=== PATIENT | female | born 1985 | race Caucasian/White ===

== ENCOUNTER → 2017-08-04 15:30 | Outpatient (CLI) | payer BC, SELFPAY ==
[2017-08-06 14:10] LABS: Chlamydia Trachomatis by PCR Negative (Negative); Neisserai gonorrhoeae by PCR Negative (Negative); Probe Check PASS; Sample Adequacy Control PASS; Specimen Processing Control PASS
== END ==
PROVIDERS: Visit Provider Obstetrics & Gynecology
DX: Z11.3 Encounter for screening for infections with a predominantly sexual mode of transmission (principal); Z32.01 Encounter for pregnancy test, result positive; Z12.4 Encounter for screening for malignant neoplasm of cervix
CPT/HCPCS: 87491; 87591

== ENCOUNTER → 2017-08-28 15:07 | Outpatient (CLI) | payer BC, SELFPAY ==
[2017-08-28 15:56] LABS: Color, Urine Yellow (Yellow); Glucose, Dipstick Normal (Normal); Ketone-Dipstick Negative (Negative); Leukocyte Esterase-Dipstick Negative /ul (Negative); Nitrite-Dipstick Negative (Negative); Occult Blood-Urine Negative /ul (Negative); Protein-Dipstick Negative (Negative); Specific Gravity, Urine 1.015 (1.002-1.030); Urine Bilirubin Dipstick Negative (Negative); Urine Clarity Clear (Clear); Urine Urobilinogen Normal (Normal)
[2017-08-28 16:01] LABS: COTININE Drug Screen Negative (<200 ng/mL)
[2017-08-28 16:05] LABS: Amphetamine Urine VISTA NEGATIVE (<1000 ng/mL); Barbiturate Urine VISTA NEGATIVE (< 200 ng/mL); Benzodiazepine Urine VISTA NEGATIVE (< 200 ng/mL); Cocaine Urine VISTA NEGATIVE (< 300 ng/mL); Ecstacy Urine VISTA NEGATIVE (< 500 ng/mL); Methadone Urine VISTA NEGATIVE (< 300 ng/mL); PCP Urine VISTA NEGATIVE (< 25 ng/mL); THC Urine VISTA NEGATIVE (< 50 ng/mL); Vista UDS pH Range 6
[2017-08-28 16:23] LABS: Absolute Lymphocyte Count 1.78 X10^3/ul (0.83-4.51); Absolute Neutrophil Count 7.8 X10^3/uL (2.0-7.7); Basophil# 0.02 X10^3/uL; Basophil% 0.2 % (0-1); Eosinophil# 0.08 X10^3/uL; Eosinophils% 0.8 % (0-5); Hematocrit 39.6 % (37-47); Hemoglobin 13.5 g/dl (12.0-15.0); Lymphocyte # 1.78 X10^3/ul (4.0); Lymphocyte % 17.2 % (19-41); Mean Corp Hgb Conc 34.1 g/gl (32-36); Mean Corpuscular Hgb 31.4 pg (27.0-32.0); Mean Corpuscular Volume 92.1 fL (81-99); Mean Platelet Vol. 11.5 fl (6.2-12.0); Monocyte# 0.63 X10^3/uL; Monocyte% 6.1 % (0-10); Neutrophil # 7.78 X10^3/uL (2.7-7.7); Neutrophil % 74.9 % (47-70); Platelet Count 217 K/mm3 (150-450); RBC Distribution Width CV 12.5 % (11.6-14.6); RBC Distribution Width SD 41.7 fl (35.1-43.9); White Blood Count 10.4 K/mm3 (4.4-11.0)
[2017-08-28 16:27] LABS: POSITIVE COUNT NO; POSITIVE DIFFERENTIAL NO; POSITIVE MORPHOLOGY NO
[2017-08-28 16:47] LABS: Thyroid Stim Hormone (TSH) 1.03 uIU/mL (0.358-3.74)
[2017-08-28 17:31] LABS: HIV - WCH Non-Reactive (Nonreactive); Rubella IgG 41.5 IU/mL
[2017-08-30 11:44] LABS: HEPATITIS B SURFACE AG Negative (Negative); Hep C Antibodies <0.1 s/co ratio (0.0-0.9)
[2017-09-01 02:54] LABS: Prenatal RPR NONREACTIVE (NONREACTIVE)
== END ==
PROVIDERS: Visit Provider Obstetrics & Gynecology
DX: Z34.81 Encounter for supervision of other normal pregnancy, first trimester (principal)
CPT/HCPCS: 36415; 80307; 81002; 84443; 85025; 86703; 86762; 86803; 87340

== ENCOUNTER → 2017-12-18 17:04 | Outpatient (CLI) | payer BC, SELFPAY | PROVIDERS: Visit Provider Obstetrics & Gynecology | DX: N30.00 Acute cystitis without hematuria (principal) | CPT/HCPCS: 87077; 87086; 87088; 87186 ==

== ENCOUNTER → 2017-12-23 10:39 | Outpatient (CLI) | payer BC, SELFPAY ==
[2017-12-23 11:24] LABS: Hematocrit 35.3 % (37-47); Hemoglobin 11.7 g/dl (12.0-15.0); Mean Corp Hgb Conc 33.1 g/gl (32-36); Mean Corpuscular Hgb 31.1 pg (27.0-32.0); Mean Corpuscular Volume 93.9 fL (81-99); Mean Platelet Vol. 11.5 fl (6.2-12.0); Platelet Count 184 K/mm3 (150-450); RBC Distribution Width CV 12.3 % (11.6-14.6); Red Blood Count 3.76 M/mm3 (4.2-5.4); White Blood Count 9.4 K/mm3 (4.4-11.0)
[2017-12-23 11:25] LABS: Scan Indicated on CBC? Y/N NO
[2017-12-23 11:49] LABS: ALB/GLOB Ratio 0.6 RATIO (0.9-2.4); AST(SGOT) 33 U/L (15-37); Alanine Aminotransfer ALT/SGPT 44 U/L (13-56); Albumin, Serum 2.3 g/dL (3.2-5.0); Alkaline Phosphatase 75 U/L (45-117); Anion Gap 8 (5-15); BUN 5 mg/dL (7-18); BUN/Creat Ratio 10.2 RATIO (10-20); Chloride 108 mmol/L (98-107); Creatinine, Serum 0.49 mg/dL (0.55-1.02); EST Glomerular Filtration Rate 156 mL/min (>60); Est Glom Filt Rate - Afr Amer 189 mL/min (>60); Globulin 3.7 g/dL (2.2-4.2); Glucose 178 mg/dL (74-106); Glucose Challenge Gest 1H 50g 178 mg/dL (70-140); Potassium 3.6 mmol/L (3.5-5.1); Sodium Level 140 mmol/L (136-145); Uric Acid 2.6 mg/dL (2.6-6.0)
== END ==
PROVIDERS: Visit Provider Obstetrics & Gynecology
DX: Z34.83 Encounter for supervision of other normal pregnancy, third trimester (principal)
CPT/HCPCS: 80053; 82950; 84550; 85027

== ENCOUNTER → 2018-01-01 07:04 | Outpatient (CLI) | payer BC, SELFPAY ==
[2018-01-01 09:29] LABS: Glucose GTT-Gestation. Fasting 73 mg/dL (<105)
[2018-01-01 09:30] LABS: Glucose GTT-Gestational 1 Hr 163 mg/dL (<190)
[2018-01-01 10:28] LABS: Glucose GTT-Gestational 2 Hr 133 mg/dL (<165)
[2018-01-01 11:23] LABS: Glucose GTT-Gestational 3 Hr 166 L (<145)
[2018-01-01 17:22] LABS: Bacteria 0 SEEN /hpf (None Seen); Mucous, Urine 0 SEEN /hpf (<or=2+)
[2018-01-01 19:27] LABS: Color, Urine Straw (Yellow); Glucose, Dipstick Normal (Normal); Ketone-Dipstick Negative (Negative); Leukocyte Esterase-Dipstick 500 /ul (Negative); Nitrite-Dipstick Negative (Negative); Occult Blood-Urine 25 /ul (Negative); Protein-Dipstick 30 mg/dl (Negative); Urine Bilirubin Dipstick Negative (Negative); Urine Clarity Cloudy (Clear); Urine Urobilinogen Normal (Normal)
[2018-01-01 19:41] LABS: Red Blood Cells-Urine 0-5 SEEN /hpf (0-5); Squamous Epithelial Cells - UA 0-5 SEEN /hpf (5-10); White Blood Cells >100 SEEN /hpf (0-5)
[2018-01-01 19:42] LABS: Amorphous Sediment 2+
== END ==
PROVIDERS: Visit Provider Obstetrics & Gynecology
DX: O24.912 Unspecified diabetes mellitus in pregnancy, second trimester (principal); Z3A.00 Weeks of gestation of pregnancy not specified; N39.0 Urinary tract infection, site not specified
CPT/HCPCS: 36415; 81001; 82951; 82952; 87077; 87086; 87088; 87186

== ENCOUNTER → 2018-02-01 17:22 | Outpatient (CLI) | payer BC, SELFPAY | PROVIDERS: Visit Provider Obstetrics & Gynecology | DX: O23.43 Unspecified infection of urinary tract in pregnancy, third trimester (principal); Z3A.00 Weeks of gestation of pregnancy not specified | CPT/HCPCS: 87077; 87086; 87088; 87186 ==

== ENCOUNTER → 2018-02-15 16:28 | Outpatient (CLI) | payer BC, SELFPAY ==
[2018-02-15 18:12] LABS: Group B Strep DNA By PCR Negative (Negative); Internal Control PASS; Probe Check PASS; Specimen Processing Control PASS
== END ==
PROVIDERS: Visit Provider Obstetrics & Gynecology
DX: Z36.85 Encounter for antenatal screening for Streptococcus B (principal)
CPT/HCPCS: 87081; 87653

== ENCOUNTER 2018-02-21 08:39 | Inpatient (IN) | payer BC, SELFPAY ==
[2018-02-21 08:39] VITALS: BP 167/87; PULSE 101; RESP 19; TEMP 36.4; O2SAT 100; BMI 30.5
[2018-02-21 08:53] LABS: Absolute Lymphocyte Count 1.53 X10^3/ul (0.83-4.51); Absolute Neutrophil Count 6.7 X10^3/uL (2.0-7.7); Basophil# 0.02 X10^3/uL; Basophil% 0.2 % (0-1); Eosinophil# 0.04 X10^3/uL; Eosinophils% 0.4 % (0-5); Hematocrit 39.3 % (37-47); Hemoglobin 12.4 g/dl (12.0-15.0); Lymphocyte # 1.53 X10^3/ul (4.0); Lymphocyte % 16.9 % (19-41); Mean Corp Hgb Conc 31.6 g/gl (32-36); Mean Corpuscular Hgb 29.2 pg (27.0-32.0); Mean Corpuscular Volume 92.7 fL (81-99); Monocyte% 6.6 % (0-10); Neutrophil # 6.74 X10^3/uL (2.7-7.7); Neutrophil % 74.4 % (47-70); Platelet Count 153 K/mm3 (150-450); Red Blood Count 4.24 M/mm3 (4.2-5.4); White Blood Count 9.1 K/mm3 (4.4-11.0)
[2018-02-21 08:54] LABS: Differential Indicated SCAN CRITERIA MET; POSITIVE COUNT NO; POSITIVE DIFFERENTIAL NO; POSITIVE MORPHOLOGY YES
--- NOTE | 2018-02-21 08:57 | ED.VISSUMM ---
- ER Visit Summary Date of Service: 02/21/18 Chief Complaint: Patient arrives with right-sided headache and tingling left side of her body. History of Present Illness: The patient is a 32 F who is 38 weeks gestation presents with headache and left-sided tingling numbness. She denies motor weakness. She denies double vision, blurred vision loss of vision. I trouble speech or swallowing. She denies neck pain or back pain. Denies chest pain. Denies shortness of breath. Denies nausea, vomiting or diarrhea. She denies any urologic symptoms. She has no stomach past medical history. She states her equity holder is Dr. Catrina Arnold. Please read written note for complete detail Physical Examination: Blood pressure is 166/113. Patient appears slightly anxious. Head is atraumatic normocephalic. Pupils are equal round reactive. Extraocular muscles are intact. TMs are pearly white with landmarks noted. Nares patent with no drainage. Posterior pharynx without erythema or exudate. Uvula is midline. There is no dysphonia or dysphasia. Trachea is midline. There is no stridor with auscultation of the neck. Heart is regular without murmur, gallop or rub. S1 and S2 are normal. Lungs are clear to auscultation with good movement of air bilaterally. Gravid uterus 1-2 fingerbreadths below the xiphoid process. heart tones noted. She is alert oriented ?3. Cerebellar functions normal. Motor spiral 5. She reports abnormal sensation/decreased sensation left side (face, left upper and lower extremity), DTR 4+ upper and lower extremity with 4 beats of clonus at the ankle. There is no Babinski sign noted. Test Results: CT of the head without contrast per my read is negative for any acute pathology. I received a call from Dr. Bartlett at 0905. He reports no abnormally noted. CBC is unremarkable. CMP, coags and uric acid level are pending. Emergency Department Course and Treatment: Concern patient has eclampsia. With unilateral headache and contralateral paresthesia need to evaluate for intracranial hemorrhage. CT of the head was obtained. Mag sulfate bolus and drip was ordered. Appropriate blood work was ordered i.e. CBC, CMP, uric acid, UA and coags. Her equity holder was paged. Treatment Plan: Evaluate for intracranial bleed if none noted to L&D Disposition: Case discussed with Dr. Candace Jones sales support consultant for Dr. anil Arnold. She agrees patient needs to go L&D. She agrees with treatment plan. Impression: Preeclampsia This note was generated with [employer] dictation software. It may contain incorrect words, spelling, and punctuation that were not noted in review of the chart prior to signing ED Disposition - Plan for ED Patient: Chief Complaint: Numb/Ting Referrals: Care Physician,No Primary [Primary Care Provider] -
[2018-02-21 09:00] VITALS: BP 128/80; PULSE 96; RESP 18; TEMP 36.8; O2SAT 98
--- NOTE | 2018-02-21 09:00 | ED.RN ---
ob nurse at bedside. holding magnesium to given on ob
[2018-02-21 09:09] LABS: International Normalized Ratio 0.9; Partial Thromboplast Time 26.8 Seconds (24.1-36.2); Prothrombin Time (Protime)PT. 12.4 SECONDS (11.7-14.9)
[2018-02-21 09:11] LABS: Differential Comment SCANNED; Platelet Estimate ADEQUATE (ADEQ); Reactive Lymphocyte RARE
[2018-02-21 09:12] LABS: ALB/GLOB Ratio 0.6 RATIO (0.9-2.4); AST(SGOT) 19 U/L (15-37); Alanine Aminotransfer ALT/SGPT 19 U/L (13-56); Albumin, Serum 2.7 g/dL (3.2-5.0); Alkaline Phosphatase 138 U/L (45-117); Anion Gap 11 (5-15); BUN 5 mg/dL (7-18); BUN/Creat Ratio 10.5 RATIO (10-20); Calcium,Total 9.2 mg/dL (8.5-10.1); Chloride 107 mmol/L (98-107); Creatinine, Serum 0.48 mg/dL (0.55-1.02); EST Glomerular Filtration Rate 162 mL/min (>60); Est Glom Filt Rate - Afr Amer 196 mL/min (>60); Estimated Creatinine Clearance 154.21 ml/min; Globulin 4.2 g/dL (2.2-4.2); Glucose 75 mg/dL (74-106); Potassium 3.8 mmol/L (3.5-5.1); Protein, Total 6.9 g/dL (6.4-8.2); Sodium Level 142 mmol/L (136-145); Uric Acid 3.6 mg/dL (2.6-6.0)
[2018-02-21 09:18] LABS: Mucous, Urine 0 SEEN /hpf (<or=2+); Red Blood Cells-Urine 0 SEEN /hpf (0-5); White Blood Cells 0 SEEN /hpf (0-5)
[2018-02-21 09:21] LABS: Color, Urine Yellow (Yellow); Glucose, Dipstick Normal (Normal); Ketone-Dipstick 5 mg/dl (Negative); Leukocyte Esterase-Dipstick Negative /ul (Negative); Nitrite-Dipstick Negative (Negative); Occult Blood-Urine Negative /ul (Negative); Protein-Dipstick Negative (Negative); Specific Gravity, Urine 1.005 (1.002-1.030); Urine Bilirubin Dipstick Negative (Negative); Urine Clarity Clear (Clear); Urine Urobilinogen Normal (Normal)
[2018-02-21 09:28] LABS: Squamous Epithelial Cells - UA 5-10 SEEN /hpf (5-10)
[2018-02-21 09:29] LABS: Bacteria 1+ /hpf (None Seen)
[2018-02-21 09:42] VITALS: BMI 31.1
[2018-02-21 09:42] LABS: Creatinine, Urine (random) < 13.00 mg/dL (NO RANGE EST.); Protein, Urine (Random) < 6.0 mg/dL (<11.9)
[2018-02-21] MEDS: Lactated Ringers 1,000 ML 50 ML IV ×3 (09:45→20:36)
[2018-02-21] MEDS: Magnesium Sulfate 20 GM/500 ML BAG IV (09:55)
[2018-02-21] MEDS: 0.9% Saline Lock 10 ML Syringe IV (10:21)
[2018-02-21] MEDS: Oxytocin 30 units/NS 500 ml 30 UNITS/500 ML IV.SOLN IV (10:55)
[2018-02-21] MEDS: fentaNYL-bupivacaine (epidural) 100 ML BAG EPIDURAL (14:35)
[2018-02-21] MEDS: Mag Hydrox/Al Hydrox/Simeth 30 ML UDC PO ×2 (15:21→20:20)
--- NOTE | 2018-02-21 15:57 | PCM.CONS.C ---
Problem List (1) Chest pain Status: Acute (2) Sinus tachycardia Status: Acute (3) Hypotension Status: Acute Reason for Consult Date of Consultation: 02/21/18 Reason for Consultation: Hypotension, tachycardia, chest pain History of Present Illness: The patient is a 32 year old F, currently in labor, with her fourth child, and while undergoing epidural implantation developed tachycardia, hypotension, lightheadedness, dizziness, and chest pain. Her blood pressure dropped to a systolic of 70, and her magnesium infusion was discontinued. In addition her Pitocin was discontinued as well. I was called urgently by anesthesia, and came to the patient's bedside. Upon arrival the patient was awake, alert, answers questions appropriately. She had already received 1 L of lactated Ringer's solution, and was undergoing a second liter infusion. He rolled the patient onto her left side, and her blood pressure improved to a systolic of 120. Initial EKG while this was going on showed sinus tachycardia, normal intervals, normal axis, no acute changes. An urgent bedside echo was obtained which showed hyperdynamic LV function with an EF around 75%, normal RV size and function, no evidence of systolic anterior motion of the mitral leaflet or significant mitral regurgitation. We were unable to quantitate RVSP due to lack of tricuspid regurgitation. The patient's symptoms have now completely resolved and she is feeling much better. Her blood pressure stabilized, she has had no decelerations, and her heart rate has improved although still tachycardic. She has no chest pain. On further history the patient has had 3 previous childbirths all with epidurals and none with any complications. She has no known cardiac history is a nondiabetic. [] Past Medical History Allergies/Adverse Reactions: Allergies Penicillins [PCN] Allergy (Verified 02/21/18 09:43) Unknown Home Medications: Ambulatory Orders Medication Instructions Recorded Cephalexin [Keflex] 500 mg PO DAILY 02/21/18 Vits [Prenatabs FA] 1 tablet PO DAILY 02/21/18 Smoking Status: Former smoker Review of Systems - Review of Systems General: Denies: Fever, Night Sweats, Fatigue Cardiovascular: Reports: Chest Discomfort, Chest Discomfort at Rest. Denies: Shortness of Breath, Orthopnea, PND, Peripheral Edema, Palpitations, Lightheadedness, Dizziness, Near Syncope, Syncope Respiratory: Denies: Cough, Sputum Production, Hemoptysis Gastrointestinal: Denies: Hematemesis, Hematochezia, Melena Genitourinary: Denies: Dysuria, Hematuria Skin: Denies: Rash Subjectve: Patient laying on her left side, no acute distress other than labor in progress. She denies any pain. Objective: Vital Signs Temp Pulse Resp BP Pulse Ox 98.3 F 96 18 128/80 H 98 02/21/18 09:00 02/21/18 09:00 02/21/18 09:00 02/21/18 09:00 02/21/18 09:00 Weight: 187 lb Body Mass Index (BMI) 31.1 General: Awake, Alert, Oriented x 3 HEENT: PERRL, EOMI, Sclera Non Icteric Neck: Supple, Good ROM, No Lymph Node Enlargement Lungs: Clear to auscultation Cardiovascular: Regular Rhythm, Normal S1, Normal S2, No Murmurs, No Rubs, No Gallops Vascular: No Carotid Bruits, Normal Femoral Pulses, Normal Radial Pulses, Normal Dorsalis Pedal Pulse, Normal Posterior Tibial Pulses Abdomen: Bowel Sounds Present, Soft, Non Tender, No HSM, No Organomegaly Extremities: No Cyanosis, No Clubbing, No edema Neurological: No Focal Motor or Sensory Deficit Rhythm: EKG: Sinus tachycardia, no acute changes. ECHO: Preliminary results show hyperdynamic LV function with an EF of 75%, unable to quantitate RVSP, normal RV size and function. No significant regurgitation or stenosis. Stress Test: Cardiac Cath: PCI: CT Surgery: Holter monitor: EPS: PPM: CXR: Chest CT Scan: Assessment/Plan 1. Hypotension: The patient's hypotension may be multifactorial including underperfusion and hyperdynamic LV function, induction of labor with Pitocin, magnesium infusion, and side effects of bupivacaine epidural infusion. Her magnesium infusion was discontinued, as well as her Pitocin until her condition stabilized. The patient is received 2 L of lactated Ringer's, and would recommend continuing aggressive IV fluid resuscitation given her hyperdynamic LV function. Do not believe the patient has any myocardial ischemia or acute injury pattern at this time. I recommend the patient proceed with resumption of Pitocin infusion in order to facilitate labor. My suspicion is that once the baby has been born that her symptoms will improve and her heart rate and blood pressure will normalize. Would recommend continuing telemetry monitoring in the room while the patient is undergoing labor in order to detect any possible supraventricular or ventricular arrhythmias during labor and delivery. Would not recommend beta-reynaldo therapy at this time as her sinus tachycardia seems to be a result of her ongoing labor. If the patient developed supraventricular tachycardia or ventricular arrhythmias would have a low threshold for IV Lopressor 5 mg every 4-6 hours as needed. Would not recommend troponin rule out at this time unless and until the patient has any chest pain symptoms. As always we need to have a high index of suspicion for possible spontaneous coronary dissection during a peripartum timeframe of up to 6-8 weeks after . 2. Events and results relayed to primary jack spooler tender Dr. Edwards. Consultation took place between 315 and 4:05 PM. Thank you very much for the opportunity to participate in the cardiac care of your patient.
[2018-02-21] MEDS: Oxytocin 30 units/NS 500 ml 30 UNITS/500 ML IV.SOLN 334 UNITS IV (23:21)
--- NOTE | 2018-02-21 23:42 | PCM.OB.VAG ---
Vaginal Delivery Maternal Presentation: Medically Indicated Induction Presented at 37w3d ega to the ER with headache, visual changes, and left sided paresthesias. BP elevated to 160s/110s. Admitted with preeclampsia. Pitocin induction started. Method of Induction: Pitocin Amniotic Membrane Rupture Type: Artificial Rupture of Membrane time: 1130 Amniotic Fluid Description: Clear Final STEPHEN: 03/11/18 Final STEPHEN Source: US <20 weeks Gestational age: 37 Weeks and 3 Days [place] doctor who attended delivery (if requested by OB): Kate Duke Date of Procedure: 02/21/18 Pre-Operative Diagnosis: Labor Post-Operative Diagnosis: same Surgery/ Procedure Performed: Spontaneous Vaginal Delivery Anesthesiologist: Uzair Ingram Type of Anesthesia: Epidural Description of Procedure: Progressed to FD then pushed for about 10 miinutes to deliver a live male without complication. Baby's mouth suctioned at delivery. Delayed cord clamping utilized. The cord was clamped and cut. Apgars were 8/9. The placenta was delivered spontaneously intact with a centrally located 3VC. An accessory lobe was noted. The uterus contracted well. The cervix, upper and lower vaginas and perineum were intact. Presentation: Vertex Placental Delivery Description: Spontaneous Placenta Disposition: [facility] Percentage of Placenta Abruption: 0 Cord Vessel Description: 3 Vessels Nuchal Cord Compression: Without compression Cord Entanglement: None Drain: Leyva to straight drain Estimated Blood Loss: 200cc Infant A gender: Male (1 minute): 8 (5 minute): 9 Episiotomy Description: None Laceration: None Medications given after delivery: IV Pitocin Complications: None
[2018-02-21] MEDS: Oxytocin 30 units/NS 500 ml 30 UNITS/500 ML IV.SOLN 167 UNITS IV (23:55)
[2018-02-22] MEDS: 0.9% Saline Lock 10 ML Syringe IV (01:00)
[2018-02-22 03:56] VITALS: BP 106/55; PULSE 102; RESP 17; TEMP 36.3
[2018-02-22] MEDS: Ibuprofen 600 MG Tablet PO ×4 (03:58→23:43)
[2018-02-22 06:59] LABS: Hematocrit 32.8 % (37-47); Hemoglobin 10.4 g/dl (12.0-15.0); Mean Corp Hgb Conc 31.7 g/gl (32-36); Mean Corpuscular Hgb 29.3 pg (27.0-32.0); Mean Corpuscular Volume 92.4 fL (81-99); Mean Platelet Vol. 12.3 fl (6.2-12.0); Platelet Count 144 K/mm3 (150-450); RBC Distribution Width CV 14.2 % (11.6-14.6); RBC Distribution Width SD 47.3 fl (35.1-43.9); Red Blood Count 3.55 M/mm3 (4.2-5.4); White Blood Count 13.4 K/mm3 (4.4-11.0)
[2018-02-22 07:01] LABS: Scan Indicated on CBC? Y/N NO
[2018-02-22 07:36] VITALS: BP 110/53; PULSE 84; RESP 15; TEMP 36.3
[2018-02-22] MEDS: Acetaminophen 500 MG Tablet 1000 MG PO ×2 (09:10→16:54)
--- NOTE | 2018-02-22 09:27 | PCM.PN.CARD ---
Subjectve: Patient doing very well this morning. Had uncomplicated induced vaginal last evening without any further difficulties from a hemodynamic standpoint. No chest pain or angina. Resting comfortably. Objective: Vital Signs Temp Pulse Resp BP Pulse Ox 97.3 F L 84 15 110/53 L 98 02/22/18 07:36 02/22/18 07:36 02/22/18 07:36 02/22/18 07:36 02/21/18 09:00 Oxygen Delivery Method Room Air Weight: 187 lb Body Mass Index (BMI) 31.1 Intake and Output for Last 24 Hours 02/20/18 02/21/18 02/22/18 23:59 23:59 23:59 Intake Total 4955.7 / 4955.7 Output Total 2480 / 2480 650 / 650 Balance 2475.7 / 2475.7 -650 / -650 General: Awake, Alert, Oriented x 3 HEENT: PERRL, EOMI, Sclera Non Icteric Neck: Supple, Good ROM, No Lymph Node Enlargement Lungs: Clear to auscultation Cardiovascular: Regular Rhythm, Normal S1, Normal S2, No Murmurs, No Rubs, No Gallops Vascular: No Carotid Bruits, Normal Femoral Pulses, Normal Radial Pulses, Normal Dorsalis Pedal Pulse, Normal Posterior Tibial Pulses Abdomen: Bowel Sounds Present, Soft, Non Tender, No HSM, No Organomegaly Extremities: No Cyanosis, No Clubbing, No edema Neurological: No Focal Motor or Sensory Deficit 02/22/18 06:37: WBC 13.4 H, RBC 3.55 L, Hgb 10.4 L, Hct 32.8 L, MCV 92.4, MCH 29.3, MCHC 31.7 L, RDW 14.2, RDW Differential 47.3 H, Plt Count 144 L, MPV 12.3 H Rhythm: EKG: ECHO: Stress Test: Cardiac Cath: PCI: CT Surgery: Holter monitor: EPS: PPM: CXR: Chest CT Scan: Medical Necessity - Tobacco Use Smoking Status: Former smoker Assessment/Plan 1. Hypotension: The patient's initial hypotension may be multifactorial including underperfusion and hyperdynamic LV function, induction of labor with Pitocin, magnesium infusion, and side effects of bupivacaine epidural infusion. Patient was human apically stabilize with 2 L of lactated Ringer's, and her blood pressure improved with temporary interruption of her epidural and discontinuation of her magnesium drip. Patient underwent epidural assisted normal spontaneous vaginal delivery last evening without complications and is resting comfortably. She had no further hemodynamic issues. Her echocardiogram as previously mentioned showed normal hyperdynamic LV function and normal RV size and function. Repeat EKG is pending this morning. Would not recommend troponin rule out at this time unless and until the patient has any chest pain symptoms. Would not recommend any further cardiac evaluation at this time. She has been chest pain-free. Would not recommend baby aspirin at this time. 2. We will sign off. Please call with any questions. Thank you very much for the opportunity to participate in the cardiac care of your patient. Code Visit Inpatient E&M: 46620 Subs Hosp L2
--- NOTE | 2018-02-22 11:18 | PCM.PN.OB ---
Patient Problems: Active and Suspected Problems Chest pain (Acute) Sinus tachycardia (Acute) Hypotension (Acute) Subjective: Feels well today. Denies chest pain, shortness of breath, headache or vision changes. Objective: AVSS - Physical Exam General: Alert, Oriented x3, Cooperative, No apparent distress HEENT: Atraumatic, Normocephalic Lungs: Clear to auscultation, Normal air movement Cardiovascular: Regular rate, Regular Rhythm, Normal S1, Normal S2 Abdomen: Soft, Non Tender, Non-Distended, - - Fundus firm and nontender, lochia moderate Extremities: No edema, No Calf Tenderness Neurological: Neuro grossly intact Psych/Mental Status: Normal Affect, Appropriate, Alert and oriented to time, place, person, mood and affect Vital Signs Temp Pulse Resp BP Pulse Ox 97.3 F L 84 15 110/53 L 98 02/22/18 07:36 02/22/18 07:36 02/22/18 07:36 02/22/18 07:36 02/21/18 09:00 Oxygen Delivery Method Room Air Weight: 84.822 kg Body Mass Index (BMI) 31.1 Intake and Output for Last 24 Hours 02/20/18 02/21/18 02/22/18 23:59 23:59 23:59 Intake Total 4955.7 / 4955.7 Output Total 2480 / 2480 650 / 650 Balance 2475.7 / 2475.7 -650 / -650 Laboratory Tests Past 24 Hrs 02/21/18 02/22/18 10:00 06:37 WBC 13.4 H RBC 3.55 L Hgb 10.4 L Hct 32.8 L MCV 92.4 MCH 29.3 MCHC 31.7 L RDW 14.2 RDW Differential 47.3 H Plt Count 144 L MPV 12.3 H Blood Type O POSITIVE Antibody Screen NEGATIVE Medical Necessity - Tobacco Use Smoking Status: Former smoker Assessment/Plan All Active Problems Chest pain (Acute) Sinus tachycardia (Acute) Hypotension (Acute) 32yo PPD#1 s/p complicated by preeclampsia -BPs normalized today and preeclamptic symptoms resolved. Continue to monitor -Routine care -O positive, RPR nr, HCV Ab neg, HBsAg neg, HIV neg
[2018-02-22 11:19] VITALS: BP 103/56; PULSE 83; RESP 15; TEMP 36.4
[2018-02-22] MEDS: Prenatal Vits Tablet 1 TABLET PO (12:51)
[2018-02-22 15:15] VITALS: BP 112/61; PULSE 76; RESP 15; TEMP 36.1
[2018-02-22 19:50] VITALS: BP 110/57; PULSE 82; RESP 16; TEMP 36.6
[2018-02-23 03:20] VITALS: BP 118/62; PULSE 76; RESP 16; TEMP 36.7; O2SAT 100
[2018-02-23] MEDS: Ibuprofen 600 MG Tablet PO (06:34)
--- NOTE | 2018-02-23 08:29 | PCM.DCVAG ---
Discharge Diet: No Restrictions Discharge Activity: Return to Normal Activity, May Drive, May Shower Return to work on:: 04/23/18 May resume sexual activity in: 4-6 weeks Call your doctor if your incision/area has: Sudden Increased Bleeding, Increased Pain/ Swelling, Foul Smelling Discharge Call your doctor if you observe: Fever of 101 or Higher, Inability to urinate, Inability to have a bowel movement, Using more than one pad per hour, Shortness of breath, Chest pain, Calf discomfort, Uncontrolled pain Cleanse incision/area with: Soap & Water Additional Instructions: If you experience any of the following, contact your healthcare provider. Bleeding that soaks a pad every hour for 2 hours Fever 100.4 or higher Unrelieved incision or abdominal pain Swelling, redness, discharge or bleeding from your incision or episiotomy site Your incision begins to separate Problems urinating (including inability to urinate or burning while urinating). Visual changes Severe headache Flu-like symptoms Pain or redness in one of both of your breasts Pain, warmth, tenderness or swelling in your legs, especially the calf area Frequent nausea and vomiting Symptoms of depression or anxiety If you experience any of the following, call 911 or go to the nearest Emergency Room. Chest pain Problems breathing Seizure activity Partial or complete paralysis of a body part, slurred speech, weakness or drooping of the face, or a sudden inability to walk or hold your balance Allergies/Adverse Reactions: Allergies Penicillins [PCN] Allergy (Verified 02/21/18 09:43) Unknown Medications to take at Discharge Cephalexin [Keflex] 500 mg PO DAILY 02/21/18 Ibuprofen 600 mg PO Q6H PRN PRN #30 tab 02/21/18 Vits [Prenatabs FA ] 1 tablet PO DAILY 02/21/18 The following prescriptions were given: Ibuprofen 600 mg PO Q6H PRN PRN #30 tab PRN Reason: pain or cramping Please Follow Up With: Corina Jean MD When: 7-10 days for blood pressure check Primary Care Physician: Care Physician,No Primary [Primary Care Provider] - Test Results: Test results from this visit will be discussed in further detail at your follow-up appointment, if applicable. Proposed Discharge Date: 02/23/18
--- NOTE | 2018-02-23 08:46 | PCM.PN.OB ---
Patient Problems: Active and Suspected Problems Preeclampsia (Acute) Chest pain (Acute) Sinus tachycardia (Acute) Hypotension (Acute) Subjective: Denies headache, vision changes, shortness of breath or chest pain. She feels well apart from the uterine cramping that is intense. Objective: avss - Physical Exam General: Alert, Oriented x3, Cooperative, No apparent distress HEENT: Atraumatic, Normocephalic Lungs: Clear to auscultation, Normal air movement Cardiovascular: Regular rate, Regular Rhythm, Normal S1, Normal S2 Abdomen: Soft, Non Tender, Non-Distended, - - Fundus firm and nontender at 2 FW below umbilicus Extremities: No edema, No Calf Tenderness Neurological: Neuro grossly intact Psych/Mental Status: Normal Affect, Appropriate, Alert and oriented to time, place, person, mood and affect Vital Signs Temp Pulse Resp BP Pulse Ox 98.0 F 76 16 118/62 100 02/23/18 03:20 02/23/18 03:20 02/23/18 03:20 02/23/18 03:20 02/23/18 03:20 Oxygen Delivery Method Room Air Weight: 84.822 kg Body Mass Index (BMI) 31.1 Intake and Output for Last 24 Hours 02/21/18 02/22/18 02/23/18 23:59 23:59 23:59 Intake Total 4955.7 / 4955.7 Output Total 2480 / 2480 650 / 650 Balance 2475.7 / 2475.7 -650 / -650 Medical Necessity - Tobacco Use Smoking Status: Former smoker Assessment/Plan All Active Problems Preeclampsia (Acute) Chest pain (Acute) Sinus tachycardia (Acute) Hypotension (Acute) 32yo PPD#1 s/p complicated by preeclampsia -BPs normalized today and preeclamptic symptoms resolved. Continue to monitor -Routine care -O positive, RPR nr, HCV Ab neg, HBsAg neg, HIV neg -d/c home today
--- NOTE | 2018-02-23 08:48 | PCM.DC.SUM ---
Discharge Date and Diagnosis Date of Admission: 02/21/18 Date of Discharge: 02/23/18 - Primary Discharge Diagnosis Active and Suspected Problems Preeclampsia (Acute) Chest pain (Acute) Sinus tachycardia (Acute) Hypotension (Acute) Hospital Course and Treatment Imaging Results: 02/21/18 STUDY: CT BRAIN WITHOUT CONTRAST REASON FOR EXAM: Female, 32 years old. Headaches and hypertension and left-sided numbness. The patient is 38 weeks . The patient was shielded appropriately. RADIATION DOSAGE (If Supplied By Facility): CTDIvol = ( 44.99 ) mGy, DLP = ( 745.49 ) mGycm TECHNIQUE: Transaxial CT imaging of the brain was performed without administration of intravenous contrast material. Individualized dose optimization techniques were used for this CT. COMPARISON: None. FINDINGS: Normal soft tissue structures. Normal calvarium. Normal size ventricles and extra-axial spaces for the patient's age. Normal white matter tracts of the cerebral hemispheres. Normal basal ganglia and thalami. Normal brainstem. Normal cerebellum. There is no intracranial hemorrhage. There are no findings of an acute ischemic infarction. Normal visualized paranasal sinuses. CT/Brain/Head without Contrast IMPRESSION: Normal unenhanced CT scan of the brain. N.B. : The above information has been verbally conveyed by Bong Hansen MD to Itz Garcia, Referring Physician, on 02/21/2018 09:04:48 (ET). Electronically Signed: Bong Hansen MD at 9:05 EDT Tel [phone], Service support , Consultations 02/21/18 09:28 Consult: Anesthesia Routine Comment: Reason For Exam: LABOR ICU Consultation: Dr. Diaz Summary of Care Provided: The patient is a 32 year old F admitted with preeclampsia with severe features including headache from the ER. She had a negative CT head. Induction of labor and IV magnesium was started. The patient complained of chest pain and experienced tachycardia associated with epidural placement. She was evaluated by the uniformer and magnesium ultimately discontinued. An EKG showed sinus tachycardia. An echocardiogram was normal. Her symptoms subsequently resolved and there was no concern for compromised cardiac function. She had an otherwise uncomplicated vaginal delivery on hospital day #1. Her elevated blood pressures normalized and EKG was normal. She had no worsening of blood pressures or other signs of preeclampsia and discharged to home on day #2. Discharge Diet: No Restrictions Discharge Activity: Return to Normal Activity, May Drive, May Shower Return to work on:: 04/23/18 May resume sexual activity in: 4-6 weeks Call your doctor if your incision/area has: Sudden Increased Bleeding, Increased Pain/ Swelling, Foul Smelling Discharge Call your doctor if you observe: Fever of 101 or Higher, Inability to urinate, Inability to have a bowel movement, Using more than one pad per hour, Shortness of breath, Chest pain, Calf discomfort, Uncontrolled pain Cleanse incision/area with: Soap & Water Home Medications: Medications to take at Discharge Cephalexin [Keflex] 500 mg PO DAILY 02/21/18 Ibuprofen 600 mg PO Q6H PRN PRN #30 tab 02/21/18 Vits [Prenatabs FA ] 1 tablet PO DAILY 02/21/18 Following Prescrptions Were Given to Patient: Ibuprofen 600 mg PO Q6H PRN PRN #30 tab PRN Reason: pain or cramping Primary Care Physician: Care Physician,No Primary [Primary Care Provider] - Please Follow Up With: Corina Jean MD Medical Necessity - Tobacco Use Smoking Status: Former smoker Meaningful Use Info Meaningful Use Diagnoses (Choose all that apply): None applicable
[2018-02-23 09:40] VITALS: BP 115/64; PULSE 90; RESP 14; TEMP 36.6; O2SAT 96
[2018-02-23] MEDS: Acetaminophen 500 MG Tablet 1000 MG PO (09:54)
[2018-02-23] MEDS: Prenatal Vits Tablet 1 TABLET PO (09:55)
== END 2018-02-23 12:10 | disposition home or self-care (01) | DRG 775 ==
LOC: ED 08:50 → WP 09:20
PROVIDERS: Admitting Provider Obstetrics & Gynecology; Emergency Provider Emergency Medicine; Visit Provider Obstetrics & Gynecology
DX: O14.14 Severe pre-eclampsia complicating childbirth (principal); I95.81 Postprocedural hypotension; Z37.0 Single live birth; Z87.891 Personal history of nicotine dependence; Z3A.38 38 weeks gestation of pregnancy
CPT/HCPCS: 59025; 59050; 70450; 80053; 81001; 82570; 84156; 84550; 85025; 85027; 85610; 85730; 86850; 86900; 93005; 93306; 99218; 99285; J7030; J7120; A4216; G0378

== ENCOUNTER → 2018-05-01 09:45 | Outpatient (CLI) | payer BC, SELFPAY ==
--- NOTE | 2018-05-01 | IMM_PTH ---
PATIENT: JOYCE PAREDES LOC: [facility] U#:[id number] AGE/SX: 39/F ROOM: RE05/01/[address]: Dr. Corina Arnold MD : 1985 BED: DIS: SPEC #: [id number] RECD: 05/02/18 14:08 STATUS: TOLU REPrimitivo #: [id number] DEAN: 05/01/18 00:[address]: Corina Stuart DEPT: IMMUNOHISTOCHEMISTRY RECD BY: Marisa White ENTERED: 05/02/18 14:09 SP TYPE: IMMUNO OTHR DR: No Primary Care Phys Tissues: A - Uterine cervix, NOS B - Uterine cervix, NOS C - Endocervical Procedures: p16 (initial) KI-67 (add) PHYSICIAN & INSTITUTION [place] [id number] SPECIMEN INFORMATION: Tissue Source: A - Cervical biopsy 6 o'clock, B - Cervical biopsy 10 o'clock, C - [facility] Clinical Info: ASCUS, positive HR-HPV Specimen Number: [id number] A-C CPT code: 06603 x3, 60451 x3 METHODOLOGY: Deparaffinized sections of prefer/formalin-fixed tissue or PAP/DQ stained slides are incubated with monoclonal/polyclonal antibodies/oligonucleotide probes. Localization is made via biotin free immunoperoxidase method. Appropriate controls are performed and reacted as expected. Results on target cell population are indicated in the following table: RESULTS: ANTIBODY / CLONE RESULT Block A P16 (E6H4) positive, focal block staining Ki-67 (30-9) negative Block B P16 (E6H4) positive, block staining Ki-67 (30-9) positive, moderate Block C P16 (E6H4) positive, block staining Ki-67 (30-9) positive, moderate These tests were developed and their performance characteristics determined by [facility]. They may not have been cleared or approved by the U.S. Food and Drug Administration. The FDA has determined that such clearance or approval is not necessary. INTERPRETATION: A. Cervical biopsy 6 o'clock: Desquamated squamous epithelial cells with dysplastic changes. B. Cervical biopsy 10 o'clock: Mild and moderate squamous dysplasia. C. ECC: Detached and unoriented fragments of squamous epithelium with focal moderate dysplastic changes. SJ:shelly 05/02/18
--- NOTE | 2018-05-01 09:30 | CER_PTH ---
PATIENT: JOYCE PAREDES LOC: [facility] U#:[id number] AGE/SX: 39/F ROOM: RE05/01/[address]: Dr. Corina Arnold MD : 1985 BED: DIS: SPEC #: [id number] RECD: 05/01/18 11:25 STATUS: TOLU BURNS #: [id number] DEAN: 05/01/18 09:[address]: Corina Stuart DEPT: SURGICAL PATHOLOGY RECD BY: Sean Hanna ENTERED: 05/01/18 12:17 SP TYPE: CERV OTHR DR: No Primary Care Phys Tissues: A - Uterine cervix, NOS B - Uterine cervix, NOS C - Endocervical Procedures: Surgery Specimen Level IV HEADER OPERATION: Colposcopy PRE-OP DIAGNOSIS: Pap ASCUS, positive HR-HPRV TISSUE SUBMITTED: A - Cervical biopsy 6 o'clock, B - Cervical biopsy 10 o'clock, C - ECC MICROSCOPIC DIAGNOSIS A. Cervix, 6 o'clock, biopsy: Desquamated fragments of squamous epithelium with dysplastic changes.. Fragments of desquamated benign endocervical epithelium cells and mucous. See comment. B. Cervix, 10 o'clock, biopsy: Mild and moderate squamous dysplasia (HGSIL and VIKAS I-II). Fragments of benign endocervical mucosa. C. ECC: Minute detached and unoriented fragments of squamous epithelium with Moderate dysplastic changes. Fragments of benign endocervical epithelium and mucous. Fragments of benign endometrial tissue. SJ:shelly 05/02/18 COMMENT A. The specimen predominantly consists of mucoid material. A-C. Results from immunohistochemistry ([id number]) for surrogate HPV marker (p16) will be reported separately. MICROSCOPIC DESCRIPTION Slides are reviewed. GROSS DESCRIPTION A - Received in fixative is one container labeled with the patient's name and designated cervical biopsy 6 o'clock. The specimen consists of one irregular fragment of light joyce mucoid tissue that measures 0.6 x 0.4 x 0.1 cm. The specimen is totally submitted in one cassette. B - Received in fixative is one container labeled with the patient's name and designated cervical biopsy 10 o'clock. The specimen consists of multiple irregular fragments of mucoid tissue that in aggregate measure 0.5 x 0.2 x 0.1 cm. The specimen is totally submitted in one cassette. C - Received in fixative is one container labeled with the patient's name and designated ECC. The specimen consists of multiple fragments of hemorrhagic mucoid tissue that in aggregate measure 2 x 1 x 0.2 cm. The specimen is totally submitted in one cassette. / GIANFRANCO:shelly 05/01/18 TC:3 CPT: 63186 x3
[2018-05-01 15:03] LABS: Chlamydia Trachomatis by PCR Negative (Negative); Neisserai gonorrhoeae by PCR Negative (Negative); Probe Check PASS; Sample Adequacy Control PASS; Specimen Processing Control PASS
== END ==
PROVIDERS: Referring Provider Obstetrics & Gynecology; Visit Provider Obstetrics & Gynecology
DX: Z11.3 Encounter for screening for infections with a predominantly sexual mode of transmission (principal); N87.1 Moderate cervical dysplasia
CPT/HCPCS: 87491; 87591; 88305; 88341; 88342

== ENCOUNTER 2018-05-31 10:22 | Day surgery (SDC) | payer BC, SELFPAY ==
--- NOTE | 2018-05-30 08:27 | PCM.HPOB.BLA ---
- Problem List (1) Severe cervical dysplasia Status: Acute Comment: VIKAS 1-2 at 10 o'clock on colposcopy. LGSIL PAP History and Physical Date of Admission: 05/31/18 HISTORY OF PRESENT ILLNESS: On 05/29/2018, Edson Martínez, a 32 year old female 4 0 1 0 4, presented for: -- Pre-Op -- PT is a 32 yo female, G-5 P-4 here today for her preop visit. PT is scheduled for surgery with Dr. Orlin Arnold on 05/31/2018 for a LEEP procedure. PTs allergies, medications and medical history reviewed and updated. dg as above. [facility] 05/01/18 PATH: A. Cervix, 6 o'clock, biopsy: Desquamated fragments of squamous epithelium with dysplastic changes.. Fragments of desquamated benign endocervical epithelium cells and mucous. See comment. B. Cervix, 10 o'clock, biopsy: Mild and moderate squamous dysplasia (HGSIL and VIKAS I-II). Fragments of benign endocervical mucosa. C. ECC: Minute detached and unoriented fragments of squamous epithelium with Moderate dysplastic changes. Fragments of benign endocervical epithelium and mucous. Fragments of benign endometrial tissue. ALLERGIES: Pcn, Hives, Penicillins and Hives MEDICATIONS HISTORY: Current medications prescribed by our practice are: 1. Fioricet 50 mg-300 mg-40 mg capsule, 1 to 2 tabs PO bid prn migraine 2. ParaGard T 380A 380 square mm intrauterine device, As Directed REVIEW OF SYSTEMS: GENERAL - Denies fever, or chills SKIN - Denies skin changes EYES - wears eye glasses and wears contact lenses EARS - Denies difficulty hearing NOSE - Denies nasal congestion or bleeding MOUTH - Denies sore throat or difficulty swallowing NECK - Denies pain or swelling RESPIRATORY - Denies shortness of breath or wheezing CARDIOVASCULAR - Denies palpitations or chest pain GASTROINTESTINAL - Denies nausea, vomiting, diarrhea, constipation GENITOURINARY - Denies dysuria, frequency of urination, incontinence of urine MUSCULOSKELETAL - Denies joint or muscle pain NEUROLOGICAL - Denies localized numbness or weakness PSYCHIATRIC - Denies depression or anxiety ENDOCRINE - Denies heat or cold intolerance, weight loss or gain HEMATO-IMMUNOLOGIC - Denies excesive bleeding with cuts PAST HISTORY: Breast/Ovarian/Colon Cancers - Denies Infections - Chicken pox, Mumps and Measles Illnesses - constipation Accidents - None History of Abnormal PAPS - YES Hospitalizations - Childbirth and kidney stones in 2011 patient has HPV; SURGICAL HISTORY: 1. none MENSTRUAL HISTORY: LMP Known?- Definite, LMP - 05/22/18, Age Onset Menarche - 13 PAST PREGNANCIES: Total Pregnancies - 5; Full Term Pregnancies - 4; Premature - 0; Abortions, Induced - 0; Abortions, Spontaneous - 1; Ectopics - 0; Multiple Births - 0; Living Children - 4 SOCIAL HISTORY: Alcohol Use - RARELY not while Smoking - smoked x 8 years. Quit 4 years ago. 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 Illicit Drug Use - denies use of street drugs Sexual Activity - Place of - [place] Hours Worked - 60-70 Spouse-Sig Other Name - Chong Spouse-Sig Other Occupation - [employer] Spouse-Sig Other Phone No - [phone] Children Name(s) - Michael, Nicole '09, Phylicia 11' AMS, Nevis 18' Control - [employer] PHYSICAL EXAMINATION BP- 130/62 Sitting, Right arm, regular cuff Weight- 159.00 lbs Height- 64.75 inch BMI:26.72 CONSTITUTIONAL - NAD, well nourished, and well developed SKIN - No rash, lesions, or ulcers HEENT - normocephalic, atraumatic, sclerae anicteric LUNGS - normal respiratory rate and rhythm NEUROLOGICAL - normal gait, normal balance, normal motor PSYCHIATRIC - A and O to time, place, person, mood and affect ASSESSMENT: 1. Moderate Cervical Dysplasia 2. High Grade Squamous Intraepithelial Lesion On Cytologic Smear Of Cervix (hgsil) PLAN BY DIAGNOSIS: 1. High Grade Squamous Intraepithelial Lesion On Cytologic Smear Of Cervix (hgsil) and Moderate Cervical Dysplasia VIKAS 1-2 at 10 o'clock on bx Plan LEEP - reviewed LEEP indications, risks, benefits Consents signed and reviewed CBC, PT/PTT on day of surgery Preop packet given Medication(s) Stopped/Reason: Complete 14 mg-400 mcg tablet - No Longer Needed and Fioricet 50 mg-300 mg-40 mg capsule - No Longer Needed
--- NOTE | 2018-05-31 | IMM_PTH ---
PATIENT: JOYCE PAREDES [place] [facility] [place][id number] AGE/SX: 32/F ROOM: RE05/31/[address]: Dr. Corina Arnold MD : 1985 BED: DIS: 05/31/2018 SPEC #: [id number] RECD: 06/01/18 10:40 STATUS: TOLU REPrimitivo #: [id number] DEAN: 05/31/18 00:[address]: Corina Stuart DEPT: IMMUNOHISTOCHEMISTRY RECD BY: Marisa White ENTERED: 06/01/18 10:44 SP TYPE: IMMUNO OTHR DR: No Primary Care Phys Tissues: A - Uterine cervix, NOS B - Endocervical Procedures: CK5-6 (initial) p16 (initial) KI-67 (add) P16 (add) P40 (add) PHYSICIAN & INSTITUTION [place] [id number] SPECIMEN INFORMATION: Tissue Source: A - Ectocervix, B - Endocervical curettings Clinical Info: Severe cervical dysplasia Specimen Number: [id number] A3, A5, B CPT code: 23425 x2, 85082 x6 METHODOLOGY: Deparaffinized sections of prefer/formalin-fixed tissue or PAP/DQ stained slides are incubated with monoclonal/polyclonal antibodies/oligonucleotide probes. Localization is made via biotin free immunoperoxidase method. Appropriate controls are performed and reacted as expected. Results on target cell population are indicated in the following table: RESULTS: ANTIBODY / CLONE RESULT Block A3 P16 (E6H4) positive, focal and patchy Ki-67 (30-9) positive, low Block A5 P16 (E6H4) negative Ki-67 (30-9) negative Block B CK5-6 (D5 & 1684) positive P40 (BC28) positive P16 (E6H4) positive, block staining Ki-67 (30-9) positive, moderate These tests were developed and their performance characteristics determined by [facility]. They may not have been cleared or approved by the U.S. Food and Drug Administration. The FDA has determined that such clearance or approval is not necessary. INTERPRETATION: A. Ectocervix: Focal mild squamous dysplasia. B. Endocervical curettings: A few detached and unoriented fragments of squamous epithelium with focal moderate dysplastic changes. SJ:shelly 06/05/18 Case has been reviewed in consultation with Dr. Anderson who concurs with the above diagnosis. IDC:AM
--- NOTE | 2018-05-31 | CER_PTH ---
PATIENT: JOYCE PAREDES LOC: [facility] [place] U#:[id number] AGE/SX: 32/F ROOM: RE05/31/[address]: Dr. Corina Arnold MD : 1985 BED: DIS: 05/31/2018 SPEC #: [id number] RECD: 05/31/18 13:58 STATUS: TOLU [place] #: [id number] DEAN: 05/31/18 00:[address]: Corina Stuart DEPT: SURGICAL PATHOLOGY RECD BY: Omer Roberts ENTERED: 05/31/18 13:59 SP TYPE: CERV OTHR DR: No Primary Care Phys Tissues: A - Uterine cervix, NOS B - Endocervical Procedures: Surgery Specimen Level IV Surgery Specimen Level V HEADER OPERATION: LEEP cone PRE-OP DIAGNOSIS: Severe cervical dysplasia TISSUE SUBMITTED: A - Ectocervix open at 3 o'clock, B - Endocervical curettings MICROSCOPIC DIAGNOSIS A. Ectocervix, LEEP conization: Focal mild squamous dysplasia with HPV changes (LGSIL and VIKAS I). Chronic inflammation. Endocervical resection margin is focally positive for mild dysplasia. B. Endocervical curettings: A few minute detached and unoriented fragments of squamous epithelium with focal moderate dysplastic (HGSIL, VIKAS II) changes. Fragments of benign endocervical epithelium and mucous. SJ:shelly 06/01/18 COMMENT Immunohistochemistry ([id number]) for surrogate HPV marker (p16) supports the above diagnosis. Please make reference to previous specimen ([id number]), cervix, 6 o'clock, biopsy with diagnosis of desquamated fragments of squamous epithelium with dysplastic changes, cervix, 10 o'clock, biopsy with diagnosis of mild and moderate squamous dysplasia and ECC with diagnosis of minute detached and unoriented fragments of squamous epithelium with moderate dysplastic changes. Case has been reviewed in consultation with Dr. Anderson who concurs with the above diagnosis. IDC:AM MICROSCOPIC DESCRIPTION Slides are reviewed. GROSS DESCRIPTION A - Received in fixative is one container labeled with the patient's name and designated ectocervix, open at 2 o'clock. The specimen consists of a joyce, indurated piece of tissue consistent with LEEP conization measuring 2 x 2 x 0.6 cm. Also present in the container are two detached pieces of tissue measuring 1 x 0.3 x 0.2 cm and 1 x 0.2 x 0.2 cm. No mucosal lesion is identified. The nonmucosal surface of the largest piece is inked black. The entire specimen is submitted in five cassettes as follows: 1-4 - largest piece of tissue (1 - 12 to 3 o'clock, 2 - 3 to 6 o'clock, 3 - 6 to 9 o'clock, 4 - 9 to 12 o'clock), 5 - smaller two pieces. B - Received in fixative is one container labeled with the patient's name and designated endocervical curettings. The specimen consists of multiple fragments of hemorrhagic mucoid tissue that in aggregate measure 1 x 0.5 x 0.1 cm. The specimen is totally submitted in one cassette. / GIANFRANCO:shelly 05/31/18 TC:5 CPT: 64834, 57203
[2018-05-31 10:44] LABS: Internal QC Validated? YES +Cl - CLEAR BKGD; Pregnancy, Urine Negative Negative
[2018-05-31 10:49] VITALS: BP 110/62; PULSE 75; RESP 16; TEMP 37; O2SAT 100; BMI 26.0
[2018-05-31 12:24] LABS: Hemoglobin 13.3 g/dl (12.0-15.0); Mean Corp Hgb Conc 31.7 g/gl (32-36); Mean Corpuscular Hgb 29.4 pg (27.0-32.0); Mean Corpuscular Volume 92.9 fL (81-99); Mean Platelet Vol. 10.8 fl (6.2-12.0); Platelet Count 268 K/mm3 (150-450); RBC Distribution Width SD 43.4 fl (35.1-43.9); Red Blood Count 4.52 M/mm3 (4.2-5.4); Scan Indicated on CBC? Y/N NO; White Blood Count 5.6 K/mm3 (4.4-11.0)
[2018-05-31] MEDS: FERRIC SUBSULFATE 8 GM SOLN (12:56)
--- NOTE | 2018-05-31 12:59 | PCM.OPRPT ---
Problem List (1) Severe cervical dysplasia Status: Acute Comment: VIKAS 1-2 at 10 o'clock on colposcopy. LGSIL PAP Report of Operation Date of Procedure: 05/31/18 Pre-Operative Diagnosis: Severe cervical dysplasia Post-Operative Diagnosis: Severe cervical dysplasia Surgery/Procedure Performed:: LEEP, endocervical curettage Description of Surgical Findings:: Lugol's resistance at 11-1 o'clock Type of Anesthesia:: Local MAC Anesthesiologist: Uzair Ingram Specimen's removed: 1. ectocervix 2. Endocervical curettings Drains: 100 ml urine Estimated Blood Loss (mL): 5 Fluids Replaced: 400 ml Description of Procedure: Indications: Patient is a 32-year-old 5 para 4014 a history of VIKAS-2 at 10:00 on colposcopic biopsy following abnormal Pap. She is counseled regarding treatment options and opted to proceed with LEEP procedure. Risks, benefits, indications and alternatives of procedure were reviewed. Consents were signed. Procedure patient was taken to the operating room and site was performed. She is placed in a dorsal supine position and MAC anesthetic administered. She was then repositioned to dorsolithotomy and the perineum was prepped and draped in sterile fashion. Straight catheterization of the bladder was performed. An insulated speculum placed into the vagina the cervix was visualized. Patient of note had a ParaGard intrauterine device in place the strings were cut prior to starting the LEEP to avoid inadvertent removal. A paracervical block was placed for a total of 20 cc of 1% lidocaine with 100,000 epinephrine. Lugol solution was applied with Lugol's resistance at 11 to 1:00 on the cervix. LEEP was performed using 2 cm loop electrode. The specimen was opened at 3:00. ECC was also obtained. Ball electrode was utilized in the LEEP excisional bed was fulgurated. Monsel solution was also applied at the excisional bed with excellent hemostasis. The procedure was complete. The patient was awakened, transferred to the recovery room without complication. Sponge counts were correct x2. Patient tolerated the procedure well. - Complications None - Admit VTE Documentation VTE Present on Admission: No VTE Mechan Device Prophylaxis: SCD's VTE Pharm Prophylaxis ordered?: No
[2018-05-31 13:05] VITALS: BP 102/62; BP 110/62; PULSE 102; RESP 16; TEMP 36.6; O2SAT 100
--- NOTE | 2018-05-31 13:07 | DCINST_ITS ---
Discharge Diet: No Restrictions Discharge Activity: Return to Normal Activity, May not drive while taking narcotic pain medications., May Shower, - - No driving for 24 hours May resume sexual activity in: 4-6 weeks Call your doctor if you observe: Fever of 101 or Higher, Inability to urinate, Inability to have a bowel movement, Using more than one pad per hour, Shortness of breath, Chest pain, Calf discomfort, Uncontrolled pain Additional Instructions: You may take Ibuprofen over the counter as needed for cramping discomfort. Allergies/Adverse Reactions: Allergies Penicillins [PCN] Allergy (Verified 05/29/18 14:52) Unknown Medications to take at Discharge NK 05/29/18 Primary Care Physician: Care Physician,No Primary [Primary Care Provider] - Test Results: Test results from this visit will be discussed in further detail at your follow- up appointment, if applicable. Please Follow Up With: Corina Jean MD When: 2-4 weeks
[2018-05-31 13:14] VITALS: BP 110/62; BP 111/62; PULSE 86; RESP 14; O2SAT 100
[2018-05-31 13:20] VITALS: BP 110/62; BP 112/63; PULSE 82; RESP 14; O2SAT 99
[2018-05-31 13:24] VITALS: BP 110/62; BP 127/67; PULSE 82; RESP 14; TEMP 36.4; O2SAT 99
[2018-05-31 14:43] VITALS: BP 110/62
--- OUTSIDE RECORDS SUMMARY | 2018-07-26 12:17 | XMS RPT_ITS ---
:1985 Author Organization [place] Support Name Relationship Address Phone ARIANNE MARTÍNEZ Unavailable [address] + [place] [address] WAYDA Unavailable [address] + [place] [address] ARIANNE MARTÍNEZ Unavailable [address] + [place] [address] WAYDA Unavailable [address] + [place] [address] JELLY ARIANNE Unavailable [address] + [place] [address] WAYDA Unavailable [address] + [place] [address] JELLY ARIANNE Unavailable [address] + [place] [address] WAYDA Unavailable [address] + [place] [address] JELLY ARIANNE Unavailable [address] + [place] [address] WAYDA Unavailable [address] + [place] [address] JELLY ARIANNE Unavailable [address] + [place] [address] WAYDA Unavailable [address] + [place] [address] RUI REAVESEMY Unavailable [address] + [place] [address] WAYDA Unavailable [address] + [place] [address] STORMY MARTÍNEZ Unavailable Unavailable + ARIANNE REAVES Unavailable [address] + [place] [address] WAYDA Unavailable [address] + [address] [facility] [place] [address] STORMY MARTÍNEZ Unavailable Unavailable + ARIANNE REAVES Unavailable [address] + [place] [address] WAYDA Unavailable [address] + [address] [facility] [place] [address] TALI SOSA Unavailable [address] [place] [address] [employer] Unavailable . +. [place], [place], LEA Unavailable [address] + [place] [address] TALI SOSA Unavailable [address] [place] [address] [employer] Unavailable . [place]. [place] LEA Unavailable [address] + [place] [address] STORMY MARTÍNEZ Unavailable Unavailable + STORMY MARTÍNEZ Unavailable Unavailable + TALI SOSA Unavailable [address] [place] [address] [employer] Unavailable . [place]. [place], LEA Unavailable [address] + [place] [address] TALI SOSA Unavailable [address] [place] [address] [employer] Unavailable . [place]. [place], LEA Unavailable [address] + [place] [address] Care Team Providers Name Role Phone NO PRIMARY CAREMD Primary Care Unavailable ROBBIN DEL VALLE Referring Unavailable ANDERS FONTENOT Attending Unavailable NO MELISSA STOKES MD Primary Care Unavailable NAS WILLIAM Attending Unavailable ROBBIN DEL VALLE Referring Unavailable NO PRIMARY MD DIVYA Primary Care Unavailable NAS WILLIAM Attending Unavailable ORDAZ DEV, SUMMER T Referring Unavailable NO PRIMARY CARE, Primary Care Unavailable NAS WILLIAM Attending Unavailable NAS WILLIAM Referring Unavailable NO PRIMARY CARE, Primary Care Unavailable NINO SOUSA Attending Unavailable ORDAZ DEV, SUMMER T Referring Unavailable Ordaz-Dev, Summer Attending Unavailable Ordaz-Dev, Summer Attending Unavailable Ordaz-Dev, Summer Attending Unavailable Ordaz-Dev, Summer Attending Unavailable Ordaz-Dev, Summer Referring Unavailable Primay Care Physicia, No Primary Care Unavailable Ordaz-Dev, Summer Attending Unavailable Ordaz-Dev, Summer Referring Unavailable Primay Care Physicia, No Primary Care Unavailable Ordaz-Dev, Summer Attending Unavailable Ordaz-Dev, Summer Referring Unavailable Ordaz-Dev, Summer Attending Unavailable Primay Care Physicia, No Primary Care Unavailable Seals, Krishna Admitting Unavailable Seals, Krishna Attending Unavailable Seals, Krishna Referring Unavailable Seals, Krishna Admitting Unavailable Anthony Diaz Attending Unavailable Seals, Krishna Referring Unavailable Primay Care Physicia, No Primary Care Unavailable Seals, Krishna Consulting Unavailable Seals, Krishna Admitting Unavailable Anthony Diaz Attending Unavailable Seals, Krishna Referring Unavailable Primay Care Physicia, No Primary Care Unavailable Seals, Krishna Consulting Unavailable Jacob Bal Attending Unavailable Ordaz-Dev, Summer Referring Unavailable Ordaz-Dev, Summer Attending Unavailable Ordaz-Dev, Summer Referring Unavailable Primay Care Physicia, No Primary Care Unavailable Ordaz-Dev, Summer Attending Unavailable Ordaz-Dev, Summer Referring Unavailable Primay Care Physicia, No Primary Care Unavailable PROBLEMS PROBLEMS DATE TYPE CONDITION / CODE ATTENDING STATUS SOURCE 05/01/2018 Unknown Z11.3 - Encounter Ted, Active [facility] for screening for [facility] Community infections with a Hospital predominantly sexual Repository mode of transmission / Z11.3(ICD-10) 03/27/2018 Unknown I95.81 - Jacob Bal Active [place] [facility] hypotension / Hospital I95.81(ICD-10) Repository 03/06/2018 Unknown Z34.83 - Encounter Krishna Edwards Active [place] for supervision of Community other normal Hospital , third Repository trimester / Z34.83(ICD-10) 02/15/2018 Unknown Z36.85 - Encounter Ordaz-Dev, Active [place] for Summer Community screening for Hospital Streptococcus B / Repository Z36.85(ICD-10) 02/02/2018 Unknown N39.0 - Urinary Rafia Jean tract infection, [facility] site not specified / Hospital N39.0(ICD-10) Repository 08/28/2017 Unknown Z34.81 - Encounter Rafia Jean for supervision of [facility] other normal Hospital , first Repository trimester / Z34.81(ICD-10) PROCEDURES PROCEDURES No Procedure Records FoundRESULTS RESULTS DISCHARGE INSTRUCTION Observed: 05/31/2018 Status: F Source: [place] 1:07 PM [facility] REPOSITORY [facility] Medical Records Department [address] [place] [address] Instructions for Home/Discharge Instructions 05/31/18 1305 MR#: [id number] Acct: [id number] Name: JOYCE MARTÍNEZ Rep #: [id number] : 1985 32 From: Robbin Arnold MD PCP: Care Physician, No Primary Status: REG [facility] Discharge Diet: No Restrictions Discharge Activity: Return to Normal Activity, May not drive while taking narcotic pain medications., May Shower, - - No driving for 24 hours May resume sexual activity in: 4-6 weeks Call your doctor if you observe: Fever of 101 or Higher, Inability to urinate, Inability to have a bowel movement, Using more than one pad per hour, Shortness of breath, Chest pain, Calf discomfort, Uncontrolled pain Additional Instructions: You may take Ibuprofen over the counter as needed for cramping discomfort. Allergies/Adverse Reactions: Allergies Penicillins [PCN] Allergy (Verified 05/29/18 14:52) Unknown Medications to take at Discharge NK 05/29/18 Primary Care Physician: Care Physician,No Primary [Primary Care Provider] - Test Results: Test results from this visit will be discussed in further detail at your follow-up appointment, if applicable. Please Follow Up With: Robbin Jean MD When: 2-4 weeks 05/31/18 1307 <Electronically signed by Robbin Jean MD> Date Robbin Jean MD CC: No Primary Care Physician HISTORY AND PHYSICAL Observed: 05/31/2018 Status: F Source: [place] EXAM 1:07 PM [facility] REPOSITORY [facility] Medical Records Department [address] [place] [address] History and Physical 05/30/18 0827 MR#: [id number] Acct: [id number] Name: JOYCE MARTÍNEZ Rep #: [id number] : 1985 32 From: Robbin Arnold MD PCP: Care Physician, No Primary Status: REG [facility] Y Location: [place] [address] - Problem List (1) Severe cervical dysplasia Status: Acute Comment: VIKAS 1-2 at 10 o'clock on colposcopy. LGSIL PAP History and Physical Date of Admission: 05/31/18 HISTORY OF PRESENT ILLNESS: On 05/29/2018, Joyce Martínez, a 32 year old female 4 0 1 0 4, presented for: -- Pre-Op -- PT is a 32 yo female, G-5 P-4 here today for her preop visit. PT is scheduled for surgery with Dr. Orlin Arnold on 05/31/2018 for a LEEP procedure. PTs allergies, medications and medical history reviewed and updated. dg as above. [facility] 05/01/18 PATH: A. Cervix, 6 o'clock, biopsy: Desquamated fragments of squamous epithelium with dysplastic changes.. Fragments of desquamated benign endocervical epithelium cells and mucous. See comment. B. Cervix, 10 o'clock, biopsy: Mild and moderate squamous dysplasia (HGSIL and VIKAS I-II). Fragments of benign endocervical mucosa. C. ECC: Minute detached and unoriented fragments of squamous epithelium with Moderate dysplastic changes. Fragments of benign endocervical epithelium and mucous. Fragments of benign endometrial tissue. ALLERGIES: Pcn, Hives, Penicillins and Hives MEDICATIONS HISTORY: Current medications prescribed by our practice are: 1. Fioricet 50 mg-300 mg-40 mg capsule, 1 to 2 tabs PO bid prn migraine 2. ParaGard T 380A 380 square mm intrauterine device, As Directed REVIEW OF SYSTEMS: GENERAL - Denies fever, or chills SKIN - Denies skin changes EYES - wears eye glasses and wears contact lenses EARS - Denies difficulty hearing NOSE - Denies nasal congestion or bleeding MOUTH - Denies sore throat or difficulty swallowing NECK - Denies pain or swelling RESPIRATORY - Denies shortness of breath or wheezing CARDIOVASCULAR - Denies palpitations or chest pain GASTROINTESTINAL - Denies nausea, vomiting, diarrhea, constipation GENITOURINARY - Denies dysuria, frequency of urination, incontinence of urine MUSCULOSKELETAL - Denies joint or muscle pain NEUROLOGICAL - Denies localized numbness or weakness PSYCHIATRIC - Denies depression or anxiety ENDOCRINE - Denies heat or cold intolerance, weight loss or gain HEMATO-IMMUNOLOGIC - Denies excesive bleeding with cuts PAST HISTORY: Breast/Ovarian/Colon Cancers - Denies Infections - Chicken pox, Mumps and Measles Illnesses - constipation Accidents - None History of Abnormal PAPS - YES Hospitalizations - Childbirth and kidney stones in 2010 patient has HPV; SURGICAL HISTORY: 1. none MENSTRUAL HISTORY: LMP Known?- Definite, LMP - 05/22/18, Age Onset Menarche - 13 PAST PREGNANCIES: Total Pregnancies - 5; Full Term Pregnancies - 4; Premature - 0; Abortions, Induced - 0; Abortions, Spontaneous - 1; Ectopics - 0; Multiple Births - 0; Living Children - 4 SOCIAL HISTORY: Alcohol Use - RARELY not while Smoking - smoked x 8 years. Quit 4 years ago. 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 Illicit Drug Use - denies use of street drugs Sexual Activity - Place of - [place] Hours Worked - 60-70 Spouse-Sig Other Name - Arianne Spouse-Sig Other Occupation - [employer] Spouse-Sig Other Phone No - [phone] Children Name(s) - Michael, Nicole '09, Phylicia 11' AMS, Medina 18' Control - [employer] PHYSICAL EXAMINATION BP- 130/62 Sitting, Right arm, regular cuff Weight- 159.00 lbs Height- 64.75 inch BMI:26.72 CONSTITUTIONAL - NAD, well nourished, and well developed SKIN - No rash, lesions, or ulcers HEENT - normocephalic, atraumatic, sclerae anicteric LUNGS - normal respiratory rate and rhythm NEUROLOGICAL - normal gait, normal balance, normal motor PSYCHIATRIC - A and O to time, place, person, mood and affect ASSESSMENT: 1. Moderate Cervical Dysplasia 2. High Grade Squamous Intraepithelial Lesion On Cytologic Smear Of Cervix (hgsil) PLAN BY DIAGNOSIS: 1. High Grade Squamous Intraepithelial Lesion On Cytologic Smear Of Cervix (hgsil) and Moderate Cervical Dysplasia VIKAS 1-2 at 10 o'clock on bx Plan LEEP - reviewed LEEP indications, risks, benefits Consents signed and reviewed CBC, PT/PTT on day of surgery Preop packet given Medication(s) Stopped/Reason: Complete 14 mg-400 mcg tablet - No Longer Needed and Fioricet 50 mg-300 mg-40 mg capsule - No Longer Needed 05/31/18 1307 <Electronically signed by Robbin Jean MD> Date Robbin Jean MD Cosigner Signature: Date (if applicable) CC: No Primary Care Physician; Robbin Jean MD Signed OPERATIVE REPORT Observed: 05/31/2018 Status: F Source: [place] 1:05 PM [facility] REPOSITORY [facility] Medical Records Department [address] [place] [address] Operative Report 05/31/18 1259 MR#: [id number] Acct: [id number] Name: REGGIEJOYCE Una Rep #: [id number] : 1985 32 From: Robbin Arnold MD PCP: Care Physician, No Primary Status: REG [facility] Y Location: [place] [address] Problem List (1) Severe cervical dysplasia Status: Acute Comment: VIKAS 1-2 at 10 o'clock on colposcopy. LGSIL PAP Report of Operation Date of Procedure: 05/31/18 Pre-Operative Diagnosis: Severe cervical dysplasia Post-Operative Diagnosis: Severe cervical dysplasia Surgery/Procedure Performed:: LEEP, endocervical curettage Description of Surgical Findings:: Lugol's resistance at 11-1 o'clock Type of Anesthesia:: Local MAC Anesthesiologist: Uzair Ingram Specimen's removed: 1. ectocervix 2. Endocervical curettings Drains: 100 ml urine Estimated Blood Loss (mL): 5 Fluids Replaced: 400 ml Description of Procedure: Indications: Patient is a 32-year-old 5 para 4014 a history of VIKAS-2 at 10:00 on colposcopic biopsy following abnormal Pap. She is counseled regarding treatment options and opted to proceed with LEEP procedure. Risks, benefits, indications and alternatives of procedure were reviewed. Consents were signed. Procedure patient was taken to the operating room and site was performed. She is placed in a dorsal supine position and MAC anesthetic administered. She was then repositioned to dorsolithotomy and the perineum was prepped and draped in sterile fashion. Straight catheterization of the bladder was performed. An insulated speculum placed into the vagina the cervix was visualized. Patient of note had a ParaGard intrauterine device in place the strings were cut prior to starting the LEEP to avoid inadvertent removal. A paracervical block was placed for a total of 20 cc of 1% lidocaine with 100,000 epinephrine. Lugol solution was applied with Lugol's resistance at 11 to 1:00 on the cervix. LEEP was performed using 2 cm loop electrode. The specimen was opened at 3:00. ECC was also obtained. Ball electrode was utilized in the LEEP excisional bed was fulgurated. Monsel solution was also applied at the excisional bed with excellent hemostasis. The procedure was complete. The patient was awakened, transferred to the recovery room without complication. Sponge counts were correct x2. Patient tolerated the procedure well. - Complications None - Admit VTE Documentation VTE Present on Admission: No VTE Mechan Device Prophylaxis: SCD's VTE Pharm Prophylaxis ordered?: No 05/31/18 1305 <Electronically signed by Robbin Jean MD> Date Robbin Jean MD CC: No Primary Care Physician; Robbin Jean MD Signed CBC-COMPLETE BLOOD CNT Collected: 05/31/2018 Status: F Source: [place] NO DIFF 12:15 PM [facility] REPOSITORY TYPE CODE TESTS RESULT OUT OF RANGE REFERENCE UNITS LAB L100.1000 4.4-11.0 K/mm3 Normal WBC 5.6 LAB L100.1200 4.2-5.4 M/mm3 Normal RBC 4.52 LAB L100.1300 12.0-15.0 g/dl Normal HGB 13.3 LAB L100.1400 37-47 % Normal HCT 42.0 LAB L100.1500 81-99 fL Normal MCV 92.9 LAB L100.1600 27.0-32.0 pg Normal MCH 29.4 LAB L100.1700 32-36 g/gl Low MCHC 31.7 LAB L100.1810 11.6-14.6 % Normal RDW CV 13.0 LAB L100.1820 35.1-43.9 fl Normal RDW SD 43.4 LAB L100.1900 150-450 K/mm3 Normal PLT 268 LAB L100.2000 6.2-12.0 fl Normal MPV 10.8 Performed By: #### L100.0500 #### [facility] [address] [place], [place], [address] ,URINE Collected: 05/31/2018 Status: F Source: [place] 10:35 AM [facility] REPOSITORY Order Comment: Reason for Laboratory Test PRE OP TYPE CODE TESTS RESULT OUT OF REFERENCE UNITS RANGE LAB L400.8000 Negative Normal HCGUQUAL Negative Result Comment: Very dilute urine specimens, as indicated by a low specific gravity, may not contain sales and merchandising representative levels of hCG. If is still suspected, a first morning urine specimen should be collected 48 hours later and tested. Performed By: #### L400.7600 #### [facility] [address] [place], [address] CERVICAL Observed: 05/31/2018 Status: F Source: [place] 12:00 AM [facility] REPOSITORY Patient: JOYCE MARTÍNEZ : 1985 (32/) Acct Num: [id number] Phys: Ted WARREN,Summer Unit Num: [id number] Loc: [facility] Specimen: [id number] Received: 05/31/181357 Spec Type: CERV TISSUES 1 TISSUES: A. Uterine cervix, NOS B. Endocervical COMMENT Immunohistochemistry ([id number]) for surrogate HPV marker (p16) supports the above diagnosis. Please make reference to previous specimen ([id number]), cervix, 6 o'clock, biopsy with diagnosis of desquamated fragments of squamous epithelium with dysplastic changes, cervix, 10 o'clock, biopsy with diagnosis of mild and moderate squamous dysplasia and ECC with diagnosis of minute detached and unoriented fragments of squamous epithelium with moderate dysplastic changes. Case has been reviewed in consultation with Dr. Anderson who concurs with the above diagnosis. IDC:AM GROSS DESCRIPTION A - Received in fixative is one container labeled with the patient's name and designated ectocervix, open at 2 o'clock. The specimen consists of a joyce, indurated piece of tissue consistent with LEEP conization measuring 2 x 2 x 0.6 cm. Also present in the container are two detached pieces of tissue measuring 1 x 0.3 x 0.2 cm and 1 x 0.2 x 0.2 cm. No mucosal lesion is identified. The nonmucosal surface of the largest piece is inked black. The entire specimen is submitted in five cassettes as follows: 1-4 - largest piece of tissue (1 - 12 to 3 o'clock, 2 - 3 to 6 o'clock, 3 - 6 to 9 o'clock, 4 - 9 to 12 o'clock), 5 - smaller two pieces. B - Received in fixative is one container labeled with the patient's name and designated endocervical curettings. The specimen consists of multiple fragments of hemorrhagic mucoid tissue that in aggregate measure 1 x 0.5 x 0.1 cm. The specimen is totally submitted in one cassette. / SJ:shelly 05/31/18 TC:5 CPT: 95536, 09920 HEADER OPERATION: LEEP cone PRE-OP DIAGNOSIS: Severe cervical dysplasia TISSUE SUBMITTED: A - Ectocervix open at 3 o'clock, B - Endocervical curettings MICROSCOPIC DESCRIPTION Slides are reviewed. MICROSCOPIC DIAGNOSIS A. Ectocervix, LEEP conization: Focal mild squamous dysplasia with HPV changes (LGSIL and VIKAS I). Chronic inflammation. Endocervical resection margin is focally positive for mild dysplasia. B. Endocervical curettings: A few minute detached and unoriented fragments of squamous epithelium with focal moderate dysplastic (HGSIL, VIKAS II) changes. Fragments of benign endocervical epithelium and mucous. SJ:shelly 06/01/18 Signed Jose D Wilsonin 06/05/18 <signature on file> Performed By: #### PCER #### [facility] [address] [place], [address] IMMUNOHISTOCHEMISTRY Observed: 05/31/2018 Status: F Source: [place] 12:00 AM [facility] REPOSITORY Patient: JOYCE MARTÍNEZ : 1985 () Acct Num: [id number] Phys: Ted WARREN,Summer Unit Num: [id number] Loc: [facility] Specimen: [id number] Received: 06/01/18 - 1040 Spec Type: IMMUNO TISSUES 1 TISSUES: A. Uterine cervix, NOS B. Endocervical SPECIMEN INFORMATION: Tissue Source: A - Ectocervix, B - Endocervical curettings Clinical Info: Severe cervical dysplasia Specimen Number: [id number] A3, A5, B CPT code: 57648 x2, 99916 x6 METHODOLOGY: Deparaffinized sections of prefer/formalin-fixed tissue or PAP/DQ stained slides are incubated with monoclonal/polyclonal antibodies/oligonucleotide probes. Localization is made via biotin free immunoperoxidase method. Appropriate controls are performed and reacted as expected. Results on target cell population are indicated in the following table: RESULTS: ANTIBODY / CLONE RESULT Block A3 P16 (E6H4) positive, focal and patchy Ki-67 (30-9) positive, low Block A5 P16 (E6H4) negative Ki-67 (30-9) negative Block B CK5-6 (D5 AND 1684) positive P40 (BC28) positive P16 (E6H4) positive, block staining Ki-67 (30-9) positive, moderate These tests were developed and their performance characteristics determined by [facility]. They may not have been cleared or approved by the U.S. Food and Drug Administration. The FDA has determined that such clearance or approval is not necessary. INTERPRETATION: A. Ectocervix: Focal mild squamous dysplasia. B. Endocervical curettings: A few detached and unoriented fragments of squamous epithelium with focal moderate dysplastic changes. SJ:shelly 06/05/18 Case has been reviewed in consultation with Dr. Anderson who concurs with the above diagnosis. IDC:AM PHYSICIAN AND INSTITUTION [address] [address] Signed Jose D Rosario 06/05/18 <signature on file> Performed By: #### PIMM #### [facility] [address] [place] [address]. [place], [place], [id number] CT/NG [facility] BY PCR Collected: 05/01/2018 Status: F Source: [place] 9:45 AM [facility] REPOSITORY TYPE CODE TESTS RESULT OUT OF RANGE REFERENCE UNITS LAB L8200.2100 Negative Normal Chlam Negative Trac PCR LAB L8200.2200 Negative Normal NG by Negative PCR Performed By: #### L8200.2000 #### [facility] [address] [place] [address]. [place], [place], [address] CERVICAL Observed: 05/01/2018 Status: F Source: [place] 9:30 [facility] REPOSITORY Patient: JOYCE MARTÍNEZ : 1985 () Acct Num: [id number] Phys: Ted WARREN,Summer Unit Num: [id number] Loc: [facility] Specimen: [id number] Received: 05/01/181124 Spec Type: CERV TISSUES 1 TISSUES: A. Uterine cervix, NOS B. Uterine cervix, NOS C. Endocervical COMMENT A. The specimen predominantly consists of mucoid material. A-C. Results from immunohistochemistry ([id number]) for surrogate HPV marker ( p16) will be reported separately. GROSS DESCRIPTION A - Received in fixative is one container labeled with the patient's name and designated cervical biopsy 6 o'clock. The specimen consists of one irregular fragment of light joyce mucoid tissue that measures 0.6 x 0.4 x 0.1 cm. The specimen is totally submitted in one cassette. B - Received in fixative is one container labeled with the patient's name and designated cervical biopsy 10 o'clock. The specimen consists of multiple irregular fragments of mucoid tissue that in aggregate measure 0.5 x 0.2 x 0.1 cm. The specimen is totally submitted in one cassette. C - Received in fixative is one container labeled with the patient's name and designated ECC. The specimen consists of multiple fragments of hemorrhagic mucoid tissue that in aggregate measure 2 x 1 x 0.2 cm. The specimen is totally submitted in one cassette. / SJ:shelly 05/01/18 TC:3 CPT: 45875 x3 HEADER OPERATION: Colposcopy PRE-OP DIAGNOSIS: Pap ASCUS, positive HR-HPRV TISSUE SUBMITTED: A - Cervical biopsy 6 o'clock, B - Cervical biopsy 10 o'clock , C - ECC MICROSCOPIC DESCRIPTION Slides are reviewed. MICROSCOPIC DIAGNOSIS A. Cervix, 6 o'clock, biopsy: Desquamated fragments of squamous epithelium with dysplastic changes.. Fragments of desquamated benign endocervical epithelium cells and mucous. See comment. B. Cervix, 10 o'clock, biopsy: Mild and moderate squamous dysplasia (HGSIL and VIKAS I-II). Fragments of benign endocervical mucosa. C. ECC: Minute detached and unoriented fragments of squamous epithelium with Moderate dysplastic changes. Fragments of benign endocervical epithelium and mucous. Fragments of benign endometrial tissue. SJ:shelly 05/02/18 Signed Jose D Rosario 05/02/18 <signature on file> Performed By: #### PCER #### [facility] [address] [place], [address] IMMUNOHISTOCHEMISTRY Observed: 05/01/2018 Status: F Source: [place] 12:00 AM [facility] REPOSITORY Patient: JOYCE MARTÍNEZ : 1985 () Acct Num: [id number] Phys: Ted WARREN,Summer Unit Num: [id number] Loc: [facility] Specimen: [id number] Received: 05/02/18 - 1408 Spec Type: IMMUNO TISSUES 1 TISSUES: A. Uterine cervix, NOS B. Uterine cervix, NOS C. Endocervical SPECIMEN INFORMATION: Tissue Source: A - Cervical biopsy 6 o'clock, B - Cervical biopsy 10 o'clock, C - ECC Clinical Info: ASCUS, positive HR-HPV Specimen Number: [id number] A-C CPT code: 95191 x3, 22698 x3 METHODOLOGY: Deparaffinized sections of prefer/formalin-fixed tissue or PAP/DQ stained slides are incubated with monoclonal/polyclonal antibodies/oligonucleotide probes. Localization is made via biotin free immunoperoxidase method. Appropriate controls are performed and reacted as expected. Results on target cell population are indicated in the following table: RESULTS: ANTIBODY / CLONE RESULT Block A P16 (E6H4) positive, focal block staining Ki-67 (30-9) negative Block B P16 (E6H4) positive, block staining Ki-67 (30-9) positive, moderate Block C P16 (E6H4) positive, block staining Ki-67 (30-9) positive, moderate These tests were developed and their performance characteristics determined by [facility]. They may not have been cleared or approved by the U.S. Food and Drug Administration. The FDA has determined that such clearance or approval is not necessary. INTERPRETATION: A. Cervical biopsy 6 o'clock: Desquamated squamous epithelial cells with dysplastic changes. B. Cervical biopsy 10 o'clock: Mild and moderate squamous dysplasia. C. ECC: Detached and unoriented fragments of squamous epithelium with focal moderate dysplastic changes. SJ:shelly 05/02/18 PHYSICIAN AND INSTITUTION [place] [phone] Signed Jose D Rosario 05/02/18 <signature on file> Performed By: #### PIMM #### [facility] [address] [place] [address]. [place], [address] DISCHARGE SUMMARY Observed: 02/28/2018 Status: F Source: [place] 8:05 AM [facility] REPOSITORY [facility] Medical Records Department [address] [place] [address] Discharge Summary 02/23/18 0848 MR#: [id number] Acct: [id number] Name: JOYCE MARTÍNEZ Rep #: [id number] : 1985 32 From: Robbin Arnold MD PCP: Care Physician, No Primary Status: DIS IN Y [facility] Date and Diagnosis Date of Admission: 02/21/18 Date of Discharge: 02/23/18 - Primary Discharge Diagnosis Active and Suspected Problems Preeclampsia (Acute) Chest pain (Acute) Sinus tachycardia (Acute) Hypotension (Acute) Hospital Course and Treatment Imaging Results: 02/21/18 STUDY: CT BRAIN WITHOUT CONTRAST REASON FOR EXAM: Female, 32 years old. Headaches and hypertension and left-sided numbness. The patient is 38 weeks . The patient was shielded appropriately. RADIATION DOSAGE (If Supplied By Facility): CTDIvol = ( 44.99 ) mGy, DLP = ( 745.49 ) mGycm TECHNIQUE: Transaxial CT imaging of the brain was performed without administration of intravenous contrast material. Individualized dose optimization techniques were used for this CT. COMPARISON: None. FINDINGS: Normal soft tissue structures. Normal calvarium. Normal size ventricles and extra-axial spaces for the patient's age. Normal white matter tracts of the cerebral hemispheres. Normal basal ganglia and thalami. Normal brainstem. Normal cerebellum. There is no intracranial hemorrhage. There are no findings of an acute ischemic infarction. Normal visualized paranasal sinuses. CT/Brain/Head without Contrast IMPRESSION: Normal unenhanced CT scan of the brain. N.B. : The above information has been verbally conveyed by Bong Hansen MD to Itz Garcia, Referring Physician, on 02/21/2018 09:04:48 (ET). Electronically Signed: Bong Hansen MD at 9:05 EDT Tel [phone], Service support , Consultations 02/21/18 09:28 Consult: Anesthesia Routine Comment: Reason For Exam: LABOR ICU Consultation: Dr. Diaz Summary of Care Provided: The patient is a 32 year old F admitted with preeclampsia with severe features including headache from the ER. She had a negative CT head. Induction of labor and IV magnesium was started. The patient complained of chest pain and experienced tachycardia associated with epidural placement. She was evaluated by the vice president business & corporate development and magnesium ultimately discontinued. An EKG showed sinus tachycardia. An echocardiogram was normal. Her symptoms subsequently resolved and there was no concern for compromised cardiac function. She had an otherwise uncomplicated vaginal delivery on hospital day #1. Her elevated blood pressures normalized and EKG was normal. She had no worsening of blood pressures or other signs of preeclampsia and discharged to home on day #2. Discharge Diet: No Restrictions Discharge Activity: Return to Normal Activity, May Drive, May Shower Return to work on:: 04/23/18 May resume sexual activity in: 4-6 weeks Call your doctor if your incision/area has: Sudden Increased Bleeding, Increased Pain/ Swelling, Foul Smelling Discharge Call your doctor if you observe: Fever of 101 or Higher, Inability to urinate, Inability to have a bowel movement, Using more than one pad per hour, Shortness of breath, Chest pain, Calf discomfort, Uncontrolled pain Cleanse incision/area with: Soap AND Water Home Medications: Medications to take at Discharge Cephalexin [Keflex] 500 mg PO DAILY 02/21/18 Ibuprofen 600 mg PO Q6H PRN PRN #30 tab 02/21/18 Vits [Prenatabs FA ] 1 tablet PO DAILY 02/21/18 Following Prescrptions Were Given to Patient: Ibuprofen 600 mg PO Q6H PRN PRN #30 tab PRN Reason: pain or cramping Primary Care Physician: Care Physician,No Primary [Primary Care Provider] - Please Follow Up With: Robbin Jean MD Medical Necessity - Tobacco Use Smoking Status: Former smoker Meaningful Use Info Meaningful Use Diagnoses (Choose all that apply): None applicable 02/28/18 0805 <Electronically signed by Robbin Jean MD> Date Robbin Jean MD Cosigner Signature (if applicable): Date CC: No Primary Care Physician; Robbin Jean MD Signed 12 LEAD ELECTROCARDIOGRAM Observed: 02/23/2018 Status: F Source: [place] 1:50 PM [facility] REPOSITORY [facility] Cardiovascular Services [address] [place] [address] 12 Lead EKG 02/22/18 0930 MR#: [id number] Acct: [id number] Name: JOYCE MARTÍNEZ Rep #: [id number] : 1985 32 From: Jacob Bal MD Attending Dr: Krishna Edwards MD Status: DIS IN Ordering Dr: Anthony Diaz MD Date: 02/22/18 Location: Sex: F C Admitted: 02/21/18 Test Reason : Blood Pressure : / mmHG Vent. Rate : 087 BPM Atrial Rate : 087 BPM P-R Int : 142 ms QRS Dur : 084 ms QT Int : 380 ms P-R-T Axes : 022 068 039 degrees QTc Int : 457 ms Normal sinus rhythm Normal ECG Confirmed by MARTHA WARREN, JACOB ([id number]), mapping editor KRISH MASON ([id number]) on 02/23/2018 1:50:01 PM Referred By: Krishna Edwards Confirmed By:JACOB BAL MD 02/23/18 1350 Date Jacob Bal MD CC: No Primary Care Physician; Anthony Diaz MD; Krishna Edwards MD Signed 12 LEAD ELECTROCARDIOGRAM Observed: 02/23/2018 Status: F Source: [place] 1:46 PM [facility] REPOSITORY [facility] Cardiovascular Services [address] [facility] [place] [place] [address] 12 Lead EKG 02/21/18 1507 MR#: [id number] Acct: [id number] Name: JOYCE MARTÍNEZ Rep #: [id number] : 1985 32 From: Jacob Bal MD Attending Dr: Krishna Edwards MD Status: DIS IN Ordering Dr: Krishna Edwards MD Date: 02/21/18 Location: Sex: F C Admitted: 02/21/18 Test Reason : TACHY AFTER EPIDURAL Blood Pressure : / mmHG Vent. Rate : 114 BPM Atrial Rate : 114 BPM P-R Int : 154 ms QRS Dur : 076 ms QT Int : 332 ms P-R-T Axes : 044 072 044 degrees QTc Int : 457 ms Sinus tachycardia Septal infarct , age undetermined Abnormal ECG Confirmed by JACOB BAL MD ([id number]), mapping editor KRISH MASON ([id number]) on 02/23/2018 1:46:19 PM Referred By: Krishna Edwards Confirmed By:JACOB BAL MD 02/23/18 1346 Date Jacob Bal MD CC: No Primary Care Physician; Krishna Edwards MD Signed DISCHARGE INSTRUCTION Observed: 02/23/2018 Status: F Source: [place] 8:30 AM [facility] REPOSITORY [facility] Medical Records Department [address] [place] [address] Instructions for Home/Discharge Instructions 02/23/18 0829 MR#: [id number] Acct: [id number] Name: JOYCE MARTÍNEZ Rep #: [id number] : 1985 32 From: Robbin Arnold MD PCP: Care Physician, No Primary Status: ADM IN Discharge Diet: No Restrictions Discharge Activity: Return to Normal Activity, May Drive, May Shower Return to work on:: 04/23/18 May resume sexual activity in: 4-6 weeks Call your doctor if your incision/area has: Sudden Increased Bleeding, Increased Pain/ Swelling, Foul Smelling Discharge Call your doctor if you observe: Fever of 101 or Higher, Inability to urinate, Inability to have a bowel movement, Using more than one pad per hour, Shortness of breath, Chest pain, Calf discomfort, Uncontrolled pain Cleanse incision/area with: Soap AND Water Additional Instructions: If you experience any of the following, contact your healthcare provider. * Bleeding that soaks a pad every hour for 2 hours * Fever 100.4 or higher * Unrelieved incision or abdominal pain * Swelling, redness, discharge or bleeding from your incision or episiotomy site * Your incision begins to separate * Problems urinating (including inability to urinate or burning while urinating). * Visual changes * Severe headache * Flu-like symptoms * Pain or redness in one of both of your breasts * Pain, warmth, tenderness or swelling in your legs, especially the calf area * Frequent nausea and vomiting * Symptoms of depression or anxiety If you experience any of the following, call 911 or go to the nearest Emergency Room. * Chest pain * Problems breathing * Seizure activity * Partial or complete paralysis of a body part, slurred speech, weakness or drooping of the face, or a sudden inability to walk or hold your balance Allergies/Adverse Reactions: Allergies Penicillins [PCN] Allergy (Verified 02/21/18 09:43) Unknown Medications to take at Discharge Cephalexin [Keflex] 500 mg PO DAILY 02/21/18 Ibuprofen 600 mg PO Q6H PRN PRN #30 tab 02/21/18 Vits [Prenatabs FA ] 1 tablet PO DAILY 02/21/18 The following prescriptions were given: Ibuprofen 600 mg PO Q6H PRN PRN #30 tab PRN Reason: pain or cramping Please Follow Up With: Robbin Jean MD When: 7-10 days for blood pressure check Primary Care Physician: Care Physician,No Primary [Primary Care Provider] - Test Results: Test results from this visit will be discussed in further detail at your follow-up appointment, if applicable. Proposed Discharge Date: 02/23/18 02/23/18829 <Electronically signed by Robbin Jean MD> Date Robbin Jean MD CC: No Primary Care Physician CBC-COMPLETE BLOOD CNT Collected: 02/22/2018 Status: F Source: [place] NO DIFF 6:37 AM [facility] REPOSITORY Order Comment: Reason for Laboratory Test Day #1 TYPE CODE TESTS RESULT OUT OF RANGE REFERENCE UNITS LAB L100.1000 4.4-11.0 K/mm3 High WBC 13.4 LAB L100.1200 4.2-5.4 M/mm3 Low RBC 3.55 LAB L100.1300 12.0-15.0 g/dl Low HGB 10.4 LAB L100.1400 37-47 % Low HCT 32.8 LAB L100.1500 81-99 fL Normal MCV 92.4 LAB L100.1600 27.0-32.0 pg Normal MCH 29.3 LAB L100.1700 32-36 g/gl Low MCHC 31.7 LAB L100.1810 11.6-14.6 % Normal RDW CV 14.2 LAB L100.1820 35.1-43.9 fl High RDW SD 47.3 LAB L100.1900 150-450 K/mm3 Low PLT 144 LAB L100.2000 6.2-12.0 fl High MPV 12.3 Performed By: #### L100.0500 #### [facility] [address] [facility] [place], [address] DISCHARGE INSTRUCTION Observed: 02/21/2018 Status: F Source: [place] 11:49 PM [facility] REPOSITORY [facility] Medical Records Department [address] [place] [address] Instructions for Home/Discharge Instructions 02/21/18 2348 MR#: [id number] Acct: [id number] Name: JOYCE MARTÍNEZ Rep #: [id number] : 1985 32 From: Krishna Edwards MD PCP: Care Physician, No Primary Status: ADM IN Discharge Diet: No Restrictions Discharge Activity: Return to Normal Activity, May Drive, May Shower Return to work on:: 04/23/18 May resume sexual activity in: 4-6 weeks Call your doctor if your incision/area has: Sudden Increased Bleeding, Increased Pain/ Swelling, Foul Smelling Discharge Call your doctor if you observe: Fever of 101 or Higher, Inability to urinate, Inability to have a bowel movement, Using more than one pad per hour, Shortness of breath, Chest pain, Calf discomfort, Uncontrolled pain Cleanse incision/area with: Soap AND Water Additional Instructions: If you experience any of the following, contact your healthcare provider. * Bleeding that soaks a pad every hour for 2 hours * Fever 100.4 or higher * Unrelieved incision or abdominal pain * Swelling, redness, discharge or bleeding from your incision or episiotomy site * Your incision begins to separate * Problems urinating (including inability to urinate or burning while urinating). * Visual changes * Severe headache * Flu-like symptoms * Pain or redness in one of both of your breasts * Pain, warmth, tenderness or swelling in your legs, especially the calf area * Frequent nausea and vomiting * Symptoms of depression or anxiety If you experience any of the following, call 911 or go to the nearest Emergency Room. * Chest pain * Problems breathing * Seizure activity * Partial or complete paralysis of a body part, slurred speech, weakness or drooping of the face, or a sudden inability to walk or hold your balance Allergies/Adverse Reactions: Allergies Penicillins [PCN] Allergy (Verified 02/21/18 09:43) Unknown Medications to take at Discharge Cephalexin [Keflex] 500 mg PO DAILY 02/21/18 Ibuprofen 600 mg PO Q6H PRN PRN #30 tab 02/21/18 Vits [Prenatabs FA ] 1 tablet PO DAILY 02/21/18 The following prescriptions were given: Ibuprofen 600 mg PO Q6H PRN PRN #30 tab PRN Reason: pain or cramping Please Follow Up With: Robbin Jean MD When: 6 weeks Primary Care Physician: Care Physician,No Primary [Primary Care Provider] - Test Results: Test results from this visit will be discussed in further detail at your follow-up appointment, if applicable. Proposed Discharge Date: 02/23/18 02/21/182348 <Electronically signed by Krishna Edwards MD> Date Krishna Edwards MD CC: No Primary Care Physician OPERATIVE REPORT Observed: 02/21/2018 Status: F Source: [place] 11:47 PM [facility] REPOSITORY [facility] Medical Records Department [address] [place] [address] Operative Report 02/21/182341 MR#: [id number] Acct: [id number] Name: JOYCE MARTÍNEZ Rep #: [id number] : 1985 32 From: Krishna Edwards MD PCP: Care Physician, No Primary Status: ADM IN [facility] Maternal Presentation: Medically Indicated Induction Presented at 37w3d ega to the ER with headache, visual changes, and left sided paresthesias. BP elevated to 160s/110s. Admitted with preeclampsia. Pitocin induction started. Method of Induction: Pitocin Amniotic Membrane Rupture Type: Artificial Rupture of Membrane time: 1130 Amniotic Fluid Description: Clear Final STEPHEN: 03/11/18 Final STEPHEN Source: US <20 weeks Gestational age: 37 Weeks and 3 Days doctor who attended delivery (if requested by OB): Kate Duke Date of Procedure: 02/21/18 Pre-Operative Diagnosis: Labor Post-Operative Diagnosis: same Surgery/ Procedure Performed: Spontaneous Vaginal Delivery Anesthesiologist: Uzair Ingram Type of Anesthesia: Epidural Description of Procedure: Progressed to FD then pushed for about 10 miinutes to deliver a live male without complication. Baby's mouth suctioned at delivery. Delayed cord clamping utilized. The cord was clamped and cut. Apgars were 8/9. The placenta was delivered spontaneously intact with a centrally located 3VC. An accessory lobe was noted. The uterus contracted well. The cervix, upper and lower vaginas and perineum were intact. Presentation: Vertex Placental Delivery Description: Spontaneous Placenta Disposition: [facility] Percentage of Placenta Abruption: 0 Cord Vessel Description: 3 Vessels Nuchal Cord Compression: Without compression Cord Entanglement: None Drain: Leyva to straight drain Estimated Blood Loss: 200cc A gender: Male (1 minute): 8 (5 minute): 9 Episiotomy Description: None Laceration: None Medications given after delivery: IV Pitocin Complications: None 02/21/18 3807 <Electronically signed by Krishna Edwards MD> Date Krishna Edwards MD CC: No Primary Care Physician; Krishna Edwards MD Signed ECHOCARDIOGRAM COMPLETE Observed: 02/21/2018 Status: F Source: [place] 4:19 PM [facility] REPOSITORY [facility] Cardiovascular Services [address] [place] [address] Echo Complete 02/21/18 1541 MR#: [id number] Acct: [id number] Name: JOYCE MARTÍNEZ Rep #: [id number] : 1985 32 From: Anthony Diaz MD Attending Dr: Krishna Edwards MD Status: ADM IN Ordering Dr: Anthony Diaz MD Date: 02/21/18 Location: Sex: F C Admitted: 02/21/18 Reason For Study: chest pain Procedure This was a 2D Doppler, Color Flow transthoracic echocardiogram. Exam performed portable in patient room. Left Ventricle Normal size and thickness. The estimated ejection fraction is 75 %. No regional wall motion abnormalities noted. Right Ventricle Normal size and thickness. Normal systolic function. Atria Normal left atrium. Normal right atrium. Normal atrial septum. Mitral Valve The mitral valve is structurally normal. No prolapse or stenosis seen. Tricuspid Valve Normal tricuspid valve. Trivial tricuspid valve insufficiency. Unable to estimate RV systolic pressure/pulmonary artery pressure due to technically difficult study. Aortic Valve Normal aortic valve. Trisinus/trileaflet aortic valve. Pulmonic Valve Normal pulmonic valve. Great Vessels Normal aortic root. Normal arch. Normal inferior vena cava. Inferior vena cava collapse with sniff. Pericardium/Pleural No pericardial effusion. MMode/2D Measurements AND Calculations LVIDd: 3.4 cm IVSd: 1.1 cm LA dimension: 2.4 cm LVIDs: 2.0 cm LVPWd: 1.0 cm FS: 41.7 % LAV(MOD-bp): 39.9 ml LVAd ap4: 29.3 cm2 SV(MOD-sp4): 62.5 ml LAV(MOD-bp) Indexed: 20.8 ml/m2 EDV(MOD-sp4): 89.1 ml LAV(MOD-sp2): 30.9 ml EDV(sp4-el): 91.9 ml LAV(MOD-sp4): 44.4 ml LVAs ap4: 14.5 cm2 ESV(MOD-sp4): 26.6 ml ESV(sp4-el): 27.3 ml EF(MOD-sp4): 70.2 % EF(sp4-el): 70.3 % SV(sp4-el): 64.6 ml LA A4 area: 16.6 cm2 RA A4 area: 14.6 cm2 Doppler Measurements AND Calculations Ao V2 max: 166.6 cm/sec LV V1 max: 121.2 cm/sec PA V2 max: 136.3 cm/sec Ao max P.1 mmHg LV V1 max P.9 mmHg Interpretation Summary The estimated ejection fraction is 75 %. Unable to estimate RV systolic pressure/pulmonary artery pressure due to technically difficult study. There is no comparison study available. The study was technically limited. Ordering Physician: Anthony Diaz Referring Physician: Krishna Edwards Performed By: Gem Smith RDCS 02/21/18 1618 Date Anthony Diaz MD CC: No Primary Care Physician; Anthony Diaz MD; Krishna Edwards MD Date Dictated: 02/21/18 1541 Date Transcribed: 02/21/18 1618 Immigration Coordinator: Signed CONSULTATION Observed: 02/21/2018 Status: F Source: [place] 4:06 PM [facility] REPOSITORY [facility] Medical Records Department [address] [place] [address] Consultation 02/21/18 1557 MR#: [id number] Acct: [id number] Name: JOYCE MARTÍNEZ Rep #: [id number] : 1985 32 From: Anthony Diaz MD PCP: Care Physician, No Primary Status: ADM IN Y Location: [place] [id number] Problem List (1) Chest pain Status: Acute (2) Sinus tachycardia Status: Acute (3) Hypotension Status: Acute Reason for Consult Date of Consultation: 02/21/18 Reason for Consultation: Hypotension, tachycardia, chest pain History of Present Illness: The patient is a 32 year old F, currently in labor, with her fourth child, and while undergoing epidural implantation developed tachycardia, hypotension, lightheadedness, dizziness, and chest pain. Her blood pressure dropped to a systolic of 70, and her magnesium infusion was discontinued. In addition her Pitocin was discontinued as well. I was called urgently by anesthesia, and came to the patient's bedside. Upon arrival the patient was awake, alert, answers questions appropriately. She had already received 1 L of lactated Ringer's solution, and was undergoing a second liter infusion. He rolled the patient onto her left side, and her blood pressure improved to a systolic of 120. Initial EKG while this was going on showed sinus tachycardia, normal intervals, normal axis, no acute changes. An urgent bedside echo was obtained which showed hyperdynamic LV function with an EF around 75%, normal RV size and function, no evidence of systolic anterior motion of the mitral leaflet or significant mitral regurgitation. We were unable to quantitate RVSP due to lack of tricuspid regurgitation. The patient's symptoms have now completely resolved and she is feeling much better. Her blood pressure stabilized, she has had no decelerations, and her heart rate has improved although still tachycardic. She has no chest pain. On further history the patient has had 3 previous childbirths all with epidurals and none with any complications. She has no known cardiac history is a nondiabetic. [] Past Medical History Allergies/Adverse Reactions: Allergies Penicillins [PCN] Allergy (Verified 02/21/18 09:43) Unknown Home Medications: Ambulatory Orders Medication Instructions Recorded Cephalexin [Keflex] 500 mg PO DAILY 02/21/18 Vits [Prenatabs FA] 1 tablet PO DAILY 02/21/18 Smoking Status: Former smoker Review of Systems - Review of Systems General: Denies: Fever, Night Sweats, Fatigue Cardiovascular: Reports: Chest Discomfort, Chest Discomfort at Rest. Denies: Shortness of Breath, Orthopnea, PND, Peripheral Edema, Palpitations, Lightheadedness, Dizziness, Near Syncope, Syncope Respiratory: Denies: Cough, Sputum Production, Hemoptysis Gastrointestinal: Denies: Hematemesis, Hematochezia, Melena Genitourinary: Denies: Dysuria, Hematuria Skin: Denies: Rash Subjectve: Patient laying on her left side, no acute distress other than labor in progress. She denies any pain. Objective: Vital Signs Temp Pulse Resp BP Pulse Ox 98.3 F 96 18 128/80 H 98 02/21/18 09:00 02/21/18 09:00 02/21/18 09:00 02/21/18 09:00 02/21/18 09:00 Weight: 187 lb Body Mass Index (BMI) 31.1 General: Awake, Alert, Oriented x 3 HEENT: PERRL, EOMI, Sclera Non Icteric Neck: Supple, Good ROM, No Lymph Node Enlargement Lungs: Clear to auscultation Cardiovascular: Regular Rhythm, Normal S1, Normal S2, No Murmurs, No Rubs, No Gallops Vascular: No Carotid Bruits, Normal Femoral Pulses, Normal Radial Pulses, Normal Dorsalis Pedal Pulse, Normal Posterior Tibial Pulses Abdomen: Bowel Sounds Present, Soft, Non Tender, No HSM, No Organomegaly Extremities: No Cyanosis, No Clubbing, No edema Neurological: No Focal Motor or Sensory Deficit Rhythm: EKG: Sinus tachycardia, no acute changes. ECHO: Preliminary results show hyperdynamic LV function with an EF of 75%, unable to quantitate RVSP, normal RV size and function. No significant regurgitation or stenosis. Stress Test: Cardiac Cath: PCI: CT Surgery: Holter monitor: EPS: PPM: CXR: Chest CT Scan: Assessment/Plan 1. Hypotension: The patient's hypotension may be multifactorial including underperfusion and hyperdynamic LV function, induction of labor with Pitocin, magnesium infusion, and side effects of bupivacaine epidural infusion. Her magnesium infusion was discontinued, as well as her Pitocin until her condition stabilized. The patient is received 2 L of lactated Ringer's, and would recommend continuing aggressive IV fluid resuscitation given her hyperdynamic LV function. Do not believe the patient has any myocardial ischemia or acute injury pattern at this time. I recommend the patient proceed with resumption of Pitocin infusion in order to facilitate labor. My suspicion is that once the baby has been born that her symptoms will improve and her heart rate and blood pressure will normalize. Would recommend continuing telemetry monitoring in the room while the patient is undergoing labor in order to detect any possible supraventricular or ventricular arrhythmias during labor and delivery. Would not recommend beta-reynaldo therapy at this time as her sinus tachycardia seems to be a result of her ongoing labor. If the patient developed supraventricular tachycardia or ventricular arrhythmias would have a low threshold for IV Lopressor 5 mg every 4-6 hours as needed. Would not recommend troponin rule out at this time unless and until the patient has any chest pain symptoms. As always we need to have a high index of suspicion for possible spontaneous coronary dissection during a peripartum timeframe of up to 6-8 weeks after . 2. Events and results relayed to primary outsole cementer machine Dr. Edwards. Consultation took place between 315 and 4:05 PM. Thank you very much for the opportunity to participate in the cardiac care of your patient. 02/21/18 1606 <Electronically signed by Anthony Diaz MD> Date Anthony Diaz MD Cosigner Signature (if applicable): Date CC: No Primary Care Physician; Krishna Edwards MD Signed TYPE AND SCREEN Collected: 02/21/2018 Status: F Source: FRED[place] 10:00 AM [facility] REPOSITORY Order Comment: Reason for Type AND Screen/Red Cells: ROUTINE TYPE CODE TESTS RESULT OUT OF RANGE REFERENCE UNITS LAB B10.0800 O Normal BLOOD TYPE GEL POSITIVE LAB B100.4000 Normal Antibody NEGATIVE Screen Performed By: #### B101.7450 #### [facility] [address] [place], [place], [address] URINALYSIS, COMPLETE Collected: 02/21/2018 Status: F Source: FRED[place] 9:15 AM [facility] REPOSITORY Order Comment: Order Date: 02/21/18 How was Urine Obtained? CLEAN CATCH TYPE CODE TESTS RESULT OUT OF RANGE REFERENCE UNITS LAB L400.3000 Yellow COLOR Normal Yellow LAB L400.3050 Clear Normal CLARITY Clear LAB L400.3200 Normal mg/dl Normal GLUCOSE, UR Normal LAB L400.3300 Negative mg/dL Normal BILIRUBIN URINE Negative LAB L400.3400 Negative mg/dl High 5 KETONE UR LAB L400.3465 1.002-1.030 Normal SP.GR. DIPSTX 1.005 LAB L400.3550 5.0 - 8.0 pH UR Normal 7.0 LAB L400.3600 Negative mg/dl PROT Normal DIPSTX Negative LAB L400.3700 Normal mg/dl Normal UROBILI Normal LAB L400.3750 Negative Normal NITRITE UR Negative LAB L400.3780 Negative /ul Normal OCCULT BLOOD-UR Negative LAB L400.3800 Negative /ul LEUK Normal ESTERASE Negative LAB L400.4050 0-5 /hpf WBC 0 Normal SEEN LAB L400.4100 0-5 /hpf 0 Normal RBC-UA SEEN LAB L400.4150 5-10 /hpf SQUAM Normal EPI 5-10 SEEN LAB L400.4300 None Seen /hpf 1+ Normal BACTERIA LAB L400.4350 <or=2+ /hpf 0 Normal MUCUS, URINE SEEN Performed By: #### L400.0001 #### [facility] [address] [place], [address] PROTEIN+CREATININE Collected: Status: F Source: FREDDY RIVERS,URINE 02/21/2018 9:15 AM [facility] REPOSITORY TYPE CODE TESTS RESULT OUT OF RANGE REFERENCE UNITS LAB L501.1200 NO RANGE EST. mg/dL < Normal UR 13.00 CREAT LAB L501.1930 <11.9 mg/dL < 6.0 Normal PROTEIN,UR. RAN. LAB L501.1940 0-200 mg/g CRE Test Normal not performed PROT:CRE RATIO Performed By: #### L501.0900 #### [facility] [address] [place], [address] EMERGENCY DEPARTMENT Observed: 02/21/2018 Status: F Source: [place] SUMMARY 9:10 AM [facility] REPOSITORY [facility] Medical Records Department [address] [place] [address] Emergency Department Summary 02/21/18 0857 MR#: [id number] Acct: [id number] Name: JOYCE MARTÍNEZ Rep #: [id number] : 1985 32 From: Itz Garcia MD PCP: Care Physician, No Primary Status: REG ER - ER Visit Summary Date of Service: 02/21/18 Chief Complaint: Patient arrives with right-sided headache and tingling left side of her body. History of Present Illness: The patient is a 32 F who is 38 weeks gestation presents with headache and left-sided tingling numbness. She denies motor weakness. She denies double vision, blurred vision loss of vision. I trouble speech or swallowing. She denies neck pain or back pain. Denies chest pain. Denies shortness of breath. Denies nausea, vomiting or diarrhea. She denies any urologic symptoms. She has no stomach past medical history. 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 Catrina Arnold. Please read written note for complete detail Physical Examination: Blood pressure is 166/113. Patient appears slightly anxious. Head is atraumatic normocephalic. Pupils are equal round reactive. Extraocular muscles are intact. TMs are pearly white with landmarks noted. Nares patent with no drainage. Posterior pharynx without erythema or exudate. Uvula is midline. There is no dysphonia or dysphasia. Trachea is midline. There is no stridor with auscultation of the neck. Heart is regular without murmur, gallop or rub. S1 and S2 are normal. Lungs are clear to auscultation with good movement of air bilaterally. Gravid uterus 1-2 fingerbreadths below the xiphoid process. heart tones noted. She is alert oriented 3. Cerebellar functions normal. Motor spiral 5. She reports abnormal sensation/decreased sensation left side (face, left upper and lower extremity), DTR 4+ upper and lower extremity with 4 beats of clonus at the ankle. There is no Babinski sign noted. Test Results: CT of the head without contrast per my read is negative for any acute pathology. I received a call from Dr. Bartlett at 0905. He reports no abnormally noted. CBC is unremarkable. CMP, coags and uric acid level are pending. Emergency Department Course and Treatment: Concern patient has eclampsia. With unilateral headache and contralateral paresthesia need to evaluate for intracranial hemorrhage. CT of the head was obtained. Mag sulfate bolus and drip was ordered. Appropriate blood work was ordered i.e. CBC, CMP, uric acid, UA and coags. Her outsole cementer machine was paged. Treatment Plan: Evaluate for intracranial bleed if none noted to L AND D Disposition: Case discussed with Dr. Candace Jones database consultant for Dr. anil Arnold. She agrees patient needs to go L AND D. She agrees with treatment plan. Impression: Preeclampsia This note was generated with [employer] dictation software. It may contain incorrect words, spelling, and punctuation that were not noted in review of the chart prior to signing ED Disposition - Plan for ED Patient: Chief Complaint: Numb/Ting Referrals: Care Physician,No Primary [Primary Care Provider] - What to do if you have Problems For any increased pain, shortness of breath, bleeding, nausea or vomiting, chest pain, or any unexpected problems, contact your Primary Care Provider. Call [facility] ([phone]) or report to the closest Emergency Room. Call 911 if necessary. 02/21/18 0910 <Electronically signed by Itz Garcia MD> Date Itz Garcia MD Cosigner Signature (If Indicated): Date CC: No Primary Care Physician; Robbin Jean MD CBC W/DIFF, AUTOMATED Collected: 02/21/2018 Status: F Source: [place] 8:44 AM [facility] REPOSITORY TYPE CODE TESTS RESULT OUT OF RANGE REFERENCE UNITS LAB L100.1000 4.4-11.0 K/mm3 Normal WBC 9.1 LAB L100.1200 4.2-5.4 M/mm3 Normal RBC 4.24 LAB L100.1300 12.0-15.0 g/dl Normal HGB 12.4 LAB L100.1400 37-47 % Normal HCT 39.3 LAB L100.1500 81-99 fL Normal MCV 92.7 LAB L100.1600 27.0-32.0 pg Normal MCH 29.2 LAB L100.1700 32-36 g/gl Low MCHC 31.6 LAB L100.1810 11.6-14.6 % Normal RDW CV 14.0 LAB L100.1820 35.1-43.9 fl High RDW SD 47.0 LAB L100.1900 150-450 K/mm3 Normal PLT 153 LAB L100.2000 6.2-12.0 fl Normal MPV 12.0 LAB L100.2100 47-70 % High NEUT% 74.4 LAB L100.2200 19-41 % Low LY% 16.9 LAB L100.2300 0-10 % Normal MONO% 6.6 LAB L100.2400 0-5 % Normal EO% 0.4 LAB L100.2500 0-1 % Normal BASO% 0.2 LAB L100.2550 0.0-0.9 % High IM GRAN % 1.500 Result Comment: IG% - Immature Granulocytes (promyelocytes, myelocytes and metamyelocytes) > 1% indicates that a LEFT SHIFT is Present. LAB L100.2620 2.0-7.7 X10 3/uL Normal Absolute Neut 6.7 LAB L100.2720 0.83-4.51 X10 3/ul Normal Absolute Lymph 1.53 LAB L100.4500 Normal SMEAR COMMENT SCANNED Result Comment: RARE LARGE PLATELETS NOTED LAB L100.4700 Normal RARE REACTIVE LYMPH LAB L100.5500 ADEQ Normal PLT EST ADEQUATE Performed By: #### L100.0100 #### [facility] [address] [place], [address] PROTHROMBIN TIME W/INR Collected: 02/21/2018 Status: F Source: [place] 8:44 AM [facility] REPOSITORY TYPE CODE TESTS RESULT OUT OF RANGE REFERENCE UNITS LAB L300.4150 11.7-14.9 SECONDS Normal PROTIME 12.4 LAB L300.4200 Normal INR 0.9 Performed By: #### L300.3900, L300.4310 #### [facility] [address] [place], [place], [address] PARTIAL THROMBOPLAST Collected: 02/21/2018 Status: F Source: [place] TIME 8:44 AM [facility] REPOSITORY TYPE CODE TESTS RESULT OUT OF RANGE REFERENCE UNITS LAB L300.4310 24.1-36.2 Seconds Normal PTT 26.8 Performed By: #### L300.3900, L300.4310 #### [facility] [address] [place], [address] COMPREHENSIVE METABOLIC Collected: 02/21/2018 Status: F Source: [place] PROFIL 8:44 AM [facility] REPOSITORY TYPE CODE TESTS RESULT OUT OF RANGE REFERENCE UNITS LAB L501.0100 74-106 mg/dL Normal GLU 75 Result Comment: Please note revised GLUCOSE reference range effective 2017. LAB L501.1000 7-18 mg/dL Low BUN 5 LAB L501.1100 0.55-1.02 mg/dL Low CREAT,SERUM 0.48 Result Comment: The validity of the calculated GFR AND GFRAA in patients over 70 years has not been determined. Clinical correlation is essential. LAB L501.1110 >60 mL/min Normal EST GFR 162 Result Comment: Non- GFR Calc LAB L501.1115 >60 mL/min Normal EST GFR - AA 196 Result Comment: GFR Calc LAB L501.1255 ml/min Normal Estimated CRCL 154.21 LAB L501.1300 10-20 RATIO BUN/CRE Normal 10.5 LAB L501.1500 6.4-8. g/dL 2 T PROT Normal 6.9 LAB L501.1800 3.2-5. g/dL Low 0 ALB 2.7 LAB L501.1950 2.2-4. g/dL 2 GLOB Normal 4.2 LAB L501.2000 0.9-2. RATIO Low 4 A/G 0.6 LAB L501.2200 8.5-10 mg/dL .1 CA Normal 9.2 LAB L501.4100 15-37 U/L AST Normal 19 LAB L501.4305 45-117 U/L High ALK P 138 LAB L501.4405 13-56 U/L ALT Normal 19 LAB L501.4600 0.20-1 mg/dL .00 T BILI Normal 0.30 LAB L501.5300 136-14 mmol/L 5 NA Normal 142 LAB L501.5600 3.5-5. mmol/L 1 K Normal 3.8 LAB L501.5900 98-107 mmol/L CL Normal 107 LAB L501.6100 21.0-3 mmol/L 2.0 CO2 Normal 24.0 LAB L501.6200 5-15 GAP Normal 11 Performed By: #### L500.4050, L501.1400 #### [facility] [address] [place], [address] URIC ACID Collected: 02/21/2018 Status: F Source: [place] 8:44 AM [facility] REPOSITORY TYPE CODE TESTS RESULT OUT OF RANGE REFERENCE UNITS LAB L501.1400 2.6-6.0 mg/dL Normal URIC 3.6 Result Comment: The drugs N-Acetylcysteine and Metamizole may falsely depress this assay. Performed By: #### L500.4050, L501.1400 #### [facility] [address] [place], [address] BRAIN/HEAD WITHOUT Observed: 02/21/2018 Status: F Source: [facility] 8:43 AM [facility] REPOSITORY [facility] Imaging Services [address] [place] [address] Brain/Head without Contrast MR#: [id number] Acct: [id number] Name: JOYCE MARTÍNEZ Rep #: [id number] : 1985 F 32 From: Bong Hansen MD PCP: Care Physician, No Primary Status: REG ER Study: Brain/Head without Contrast Date of Exam: 02/21/18 Exam# [id number] Ordering Dr: Itz Garcia MD STUDY: CT BRAIN WITHOUT CONTRAST REASON FOR EXAM: Female, 32 years old. Headaches and hypertension and left-sided numbness. The patient is 38 weeks . The patient was shielded appropriately. RADIATION DOSAGE (If Supplied By Facility): CTDIvol = ( 44.99 ) mGy, DLP = ( 745.49 ) mGycm TECHNIQUE: Transaxial CT imaging of the brain was performed without administration of intravenous contrast material. Individualized dose optimization techniques were used for this CT. COMPARISON: None. FINDINGS: Normal soft tissue structures. Normal calvarium. Normal size ventricles and extra-axial spaces for the patient's age. Normal white matter tracts of the cerebral hemispheres. Normal basal ganglia and thalami. Normal brainstem. Normal cerebellum. There is no intracranial hemorrhage. There are no findings of an acute ischemic infarction. Normal visualized paranasal sinuses. CT/Brain/Head without Contrast IMPRESSION: Normal unenhanced CT scan of the brain. N.B. : The above information has been verbally conveyed by Bong Hansen MD to Itz Garcia, Referring Physician, on 02/21/2018 09:04:48 (ET). Electronically Signed: Bong Hansen MD at 9:05 EDT Tel [phone], Service support , CC: No Primary Care Physician; Itz Garcia MD Immigration Coordinator: Signed GROUP B STREP DNA Collected: 02/15/2018 Status: F Source: [place]ED[place] BY PCR 4:15 PM [facility] REPOSITORY Order Comment: Source: Vaginal-Rectal TYPE CODE TESTS RESULT OUT OF RANGE REFERENCE UNITS LAB L8200.0100 Negative Normal GBS TEST Negative RESULT Performed By: #### L8200.0000 #### [facility] [address] [place], [address] Observed: 02/15/2018 Status: F Source: [place] CULTURE, GROUP B 12:00 AM [facility] STREPTOCOCCUS REPOSITORY DAJUAN Culture Group B Beta Streptococcus is not isolated. Performed By: #### M100.1800 #### [facility] [address] [place], [address] Observed: 02/01/2018 Status: F Source: [place] CULTURE, URINE 4:45 PM [facility] REPOSITORY Urine Culture ORGANISM 1: Escherichia coli [place] Count >100,000 Escherichia coli: REACTION Amoxacillin/Clavulanic Acid $ 4 S Ampicillin $ >=32 R Ampicillin/Sulbactam $ 16 I Cefazolin $ <=4 S Cefepime $ <=1 S Ceftriaxone $ <=1 S Ciprofloxacin $ <=0.25 S ESBL - Ertapenim $$$ <=0.5 S Gentamicin $ <=1 S Imipenem *NF <=0.25 S Levofloxacin $ <=0.12 S Nitrofurantoin $ <=16 S Piperacillin/Tazobactam $$ <=4 S Tobramycin $ <=1 S Trimethoprim/Sulfametho $ <=20 S (NF) indicates non-formulary drug at [facility]. Approval by Infectious Disease Specialist required before non-formulary drugs may be ordered and/or dispensed. Performed By: #### M100.0650 #### [facility] [address] [place], [address] URINALYSIS, COMPLETE Collected: 01/01/2018 Status: F Source: [place] 4:45 PM [facility] REPOSITORY Order Comment: How was Urine Obtained? CLEAN CATCH TYPE CODE TESTS RESULT OUT OF RANGE REFERENCE UNITS LAB L400.3000 Yellow COLOR Normal Straw LAB L400.3050 Clear Normal CLARITY Cloudy LAB L400.3200 Normal mg/dl Normal GLUCOSE, UR Normal LAB L400.3300 Negative mg/dL Normal BILIRUBIN URINE Negative LAB L400.3400 Negative mg/dl Normal KETONE UR Negative LAB L400.3465 1.002-1.030 Normal SP.GR. DIPSTX 1.010 LAB L400.3550 5.0 - 8.0 pH UR Normal 7.0 LAB L400.3600 Negative mg/dl High PROT 30 DIPSTX LAB L400.3700 Normal mg/dl Normal UROBILI Normal LAB L400.3750 Negative Normal NITRITE UR Negative LAB L400.3780 Negative /ul High 25 OCCULT BLOOD-UR LAB L400.3800 Negative /ul High LEUK ESTERASE 500 LAB L400.4050 0-5 /hpf WBC Normal >100 SEEN LAB L400.4100 0-5 /hpf Normal RBC-UA 0-5 SEEN LAB L400.4150 5-10 /hpf SQUAM Normal EPI 0-5 SEEN LAB L400.4300 None Seen /hpf 0 Normal BACTERIA SEEN LAB L400.4350 <or=2+ /hpf 0 Normal MUCUS, URINE SEEN LAB L400.4900 2+ Normal AMORPHOUS Performed By: #### L400.0001 #### [facility] [address] [facility] [place], [place], [address] Observed: 01/01/2018 Status: F Source: [place] CULTURE, URINE 4:45 PM [facility] REPOSITORY Urine Culture ORGANISM 1: Escherichia coli [place] Count >100,000 Escherichia coli: REACTION Amoxacillin/Clavulanic Acid $ 8 S Ampicillin $ >=32 R Ampicillin/Sulbactam $ 16 I Cefazolin $ <=4 S Cefepime $ <=1 S Ceftriaxone $ <=1 S Ciprofloxacin $ <=0.25 S ESBL - Ertapenim $$$ <=0.5 S Gentamicin $ <=1 S Imipenem *NF <=0.25 S Levofloxacin $ <=0.12 S Nitrofurantoin $ <=16 S Piperacillin/Tazobactam $$ <=4 S Tobramycin $ <=1 S Trimethoprim/Sulfametho $ <=20 S (NF) indicates non-formulary drug at [facility]. Approval by Infectious Disease Specialist required before non-formulary drugs may be ordered and/or dispensed. Performed By: #### M100.0650 #### [facility] [address] [facility] [place], [place], [address] GESTATIONAL GTT 3HR Collected: 01/01/2018 Status: F Source: [place] 100G 7:25 AM [facility] REPOSITORY Order Comment: Is Patient Fasting? Y TYPE CODE TESTS RESULT OUT OF RANGE REFERENCE UNITS LAB L501.0650 <105 mg/dL Normal GLU 73 GTT-FASTING Result Comment: GLUCOSE TOLERANCE TEST FOR Reference Interval GESTATIONAL DIABETES Fasting <105 mg/dL 1 hour <190 mg/dl 2 hour <165 mg/dl 3 hour <145 mg/dl LAB L501.0660 <190 mg/dL Normal GLU GTT- 1HR 163 LAB L501.0670 <165 mg/dL Normal GLU GTT- 2HR 133 LAB L501.0680 <145 L High GLU GTT- 3HR 166 Performed By: #### L500.4710 #### [facility] [address] [place], [place], [address] CBC-COMPLETE BLOOD CNT Collected: 12/23/2017 Status: F Source: [place] NO DIFF 10:43 AM [facility] REPOSITORY TYPE CODE TESTS RESULT OUT OF RANGE REFERENCE UNITS LAB L100.1000 4.4-11.0 K/mm3 Normal WBC 9.4 LAB L100.1200 4.2-5.4 M/mm3 Low RBC 3.76 LAB L100.1300 12.0-15.0 g/dl Low HGB 11.7 LAB L100.1400 37-47 % Low HCT 35.3 LAB L100.1500 81-99 fL Normal MCV 93.9 LAB L100.1600 27.0-32.0 pg Normal MCH 31.1 LAB L100.1700 32-36 g/gl Normal MCHC 33.1 LAB L100.1810 11.6-14.6 % Normal RDW CV 12.3 LAB L100.1820 35.1-43.9 fl Normal RDW SD 41.0 LAB L100.1900 150-450 K/mm3 Normal PLT 184 LAB L100.2000 6.2-12.0 fl Normal MPV 11.5 Performed By: #### L100.0500 #### [facility] [address] [place], [place], [address] COMPREHENSIVE METABOLIC Collected: 12/23/2017 Status: F Source: [place] PROFIL 10:43 AM [facility] REPOSITORY TYPE CODE TESTS RESULT OUT OF RANGE REFERENCE UNITS LAB L501.0100 74-106 mg/dL High GLU 178 Result Comment: Fasting Glucose result greater than or equal to 126 mg/dL suggests DIABETES MELLITUS per A.D.A. criteria. Please note revised GLUCOSE reference range effective 2017. LAB L501.1000 7-18 mg/dL Low BUN 5 LAB L501.1100 0.55-1.02 mg/dL Low CREAT,SERUM 0.49 Result Comment: The validity of the calculated GFR AND GFRAA in patients over 70 years has not been determined. Clinical correlation is essential. LAB L501.1110 >60 mL/min Normal EST GFR 156 Result Comment: Non- GFR Calc LAB L501.1115 >60 mL/min Normal EST GFR - AA 189 Result Comment: GFR Calc LAB L501.1300 10-20 RATIO Normal BUN/CRE 10.2 LAB L501.1500 6.4-8.2 g/dL Low T PROT 6.0 LAB L501.1800 3.2-5.0 g/dL Low ALB 2.3 LAB L501.1950 2.2-4.2 g/dL Normal GLOB 3.7 LAB L501.2000 0.9-2.4 RATIO Low A/G 0.6 LAB L501.2200 8.5-10.1 mg/dL Low CA 8.0 LAB L501.4100 15-37 U/L Normal AST 33 LAB L501.4305 45-117 U/L Normal ALK P 75 LAB L501.4405 13-56 U/L Normal ALT 44 LAB L501.4600 0.20-1.00 mg/dL T Normal BILI 0.20 LAB L501.5300 136-145 mmol/L NA Normal 140 LAB L501.5600 3.5-5.1 mmol/L K Normal 3.6 LAB L501.5900 98-107 mmol/L High CL 108 LAB L501.6100 21.0-32.0 mmol/L Normal CO2 24.0 LAB L501.6200 5-15 Normal GAP 8 Performed By: #### L500.4050, L501.0250, L501.1400 #### [facility] [address] [place], [place], [address] GLUCOSE CHALLENGE GEST Collected: 12/23/2017 Status: F Source: [place] 1H 50G 10:43 AM [facility] REPOSITORY TYPE CODE TESTS RESULT OUT OF RANGE REFERENCE UNITS LAB L501.0250 70-140 mg/dL High GLU GEST 178 50g 1H Performed By: #### L500.4050, L501.0250, L501.1400 #### [facility] [address] [place], [address] URIC ACID Collected: 12/23/2017 Status: F Source: [place] 10:43 AM [facility] REPOSITORY TYPE CODE TESTS RESULT OUT OF RANGE REFERENCE UNITS LAB L501.1400 2.6-6.0 mg/dL Normal URIC 2.6 Result Comment: The drugs N-Acetylcysteine and Metamizole may falsely depress this assay. Performed By: #### L500.4050, L501.0250, L501.1400 #### [facility] [address] [place], [address] Observed: 12/18/2017 Status: F Source: [place] CULTURE, URINE 4:30 PM [facility] REPOSITORY Urine Culture ORGANISM 1: Escherichia coli [place] Count >100,000 Escherichia coli: REACTION Amoxacillin/Clavulanic Acid $ 8 S Ampicillin $ >=32 R Ampicillin/Sulbactam $ 16 I Cefazolin $ <=4 S Cefepime $ <=1 S Ceftriaxone $ <=1 S Ciprofloxacin $ <=0.25 S ESBL - Ertapenim $$$ <=0.5 S Gentamicin $ <=1 S Imipenem *NF <=0.25 S Levofloxacin $ <=0.12 S Nitrofurantoin $ <=16 S Piperacillin/Tazobactam $$ <=4 S Tobramycin $ <=1 S Trimethoprim/Sulfametho $ <=20 S (NF) indicates non-formulary drug at [facility]. Approval by Infectious Disease Specialist required before non-formulary drugs may be ordered and/or dispensed. Performed By: #### M100.0650 #### [facility] [address] [place], [place], [address] CARDIOLIPIN AB Collected: 10/23/2017 Status: F Source: NNAMDI 11:50 AM [facility] REPOSITORY TYPE CODE TESTS RESULT OUT OF REFERENCE UNITS RANGE LAB CARDG(LOIN GPL C) IgG Cardiolipin Ab <9.4 Result Comment: REFERENCE VALUE <15.0 (Negative) Test Performed by: [place] [id number] LAB CARDM(LOINC) MPL IgM Cardiolipin Ab <9.4 Result Comment: REFERENCE VALUE <15.0 (Negative) Performed By: #### CARDI #### [address] [address] BETA 2 GLYCOPROTEIN ABS Collected: 10/23/2017 Status: F Source: [place] 11:50 AM [facility] REPOSITORY TYPE CODE TESTS RESULT OUT OF REFERENCE UNITS RANGE LAB B2GBG(LOIN U/mL C) Beta 2 Glycoprotein IgG <9.4 Result Comment: REFERENCE VALUE <15.0 (Negative) LAB B2GPM(LOINC) U/mL Beta 2 Glycoprotein IgM <9.4 Result Comment: REFERENCE VALUE <15.0 (Negative) Test Performed by: [place] [address] Performed By: #### B2GP #### [address] [address] DRVVT SCREEN RATIO Collected: 10/23/2017 Status: F Source: [facility] 11:50 AM [facility] REPOSITORY TYPE CODE TESTS RESULT OUT OF REFERENCE UNITS RANGE LAB DRSCR(LOINC <1.2 ratio ) DRVVT Screen 0.9 Ratio Result Comment: Test Performed by: [place] [id number] LAB MORENA(LOINC) NA DRVVT Interpretation SEE BELOW Result Comment: Impression: 1) No evidence of lupus anticoagulant based on the dilute Mert's viper venom time testing only; see comments and suggest clinical correlation. 2) If additional evaluation for presence of antiphospholipid antibodies is clinically indicated, consider obtaining serologic testing for IgG and IgM anti-cardiolipin and/or anti-beta-2 glycoprotein 1 antibodies. Comments: The normal dilute Mert's viper venom time (DRVVT) screen ratio provides no evidence of lupus anticoagulant by this single methodology. A normal DRVVT screen ratio does not exclude the possibility of lupus anticoagulant. Currently, the International Society on Thrombosis and Haemostasis (ISTH) and the Clinical and Laboratory Standards [place] (CLSI) recommend testing for lupus anticoagulant with at least two phospholipid dependent clotting time assays based on different coagulation pathways and principles (e.g. lupus- sensitive APTT, DRVVT, etc.). If clinically indicated, consider future follow up testing Coagulation Consultation [id number] (Lupus Anticoagulant Profile). Test Performed by: [place] [id number] Performed By: #### DRVTI #### [facility] [address] [address] SS-A AND SS-B ABS Collected: 10/23/2017 Status: F Source: Fi.ttRON 11:50 AM [facility] TYPE CODE TESTS RESULT OUT OF REFERENCE UNITS RANGE LAB ENAII(LOINC <1.0 (Negative) U ) SS-A Antibody <0.2 LAB SSBAB(LOINC <1.0 (Negative) U ) SS-B Antibody <0.2 Result Comment: Test Performed by: [place] [id number] Performed By: #### ENA2 #### [address] [address] PROGRESS NOTE Observed: 10/23/2017 Status: COMPLETED Source: Fi.ttRON 10:00 AM [facility] REPOSITORY Met with patient and her Arianne Here for concern for bradycardia Medical, surgical and family hx reviewed: Hx IUFD at 19 weeks- currently on daily baby ASA Psycho/Social risk: Support System: Financial Stressors: denies Family Dynamics: lives with and 3 children Behavioral Health Issues: denie 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 Consent to share information with FTC team, OB and final application reviewer signed. Pt plans to [place] [facility]. Social Media Marketing Manager is Dr Isela Painting. Male fetus- name is yet to be decided Method of feeding: Breast Ultrasound findings today: See report in procedures for details. Pt will follow up in 1 month for reevaluation of growth and cardiac status Reinforced continued OB care with [facility] The total patient time of the visit was 10 minutes, of which greater than 50% of the time was spent counseling and coordinating care. PROGRESS NOTE Observed: 10/23/2017 Status: COMPLETED Source: ALANRON 10:00 AM [facility] REPOSITORY Patient was seen by [facility] due to bradycardia noted on initial outside ultrasound. This was not found today. SSA/SSB were drawn to evaluate for risks of bradycardia. Additionally, APLS labs were drawn due to history of stillbirth. The total patient time of the visit was 15 minutes, of which greater than 50% of the time was spent counseling and coordinating care. URINE DRUG SCREEN Collected: 08/28/2017 Status: F Source: FREDDY (VISTA) 3:18 PM [facility] REPOSITORY Order Comment: List of Drugs Taken or Suspected? UNK TYPE CODE TESTS RESULT OUT OF RANGE REFERENCE UNITS LAB L505.0075 TO BE Normal CONFIRMED Result Comment: CONFIRMATORY TESTING FOR ALL POSITIVE URINE DRUG SCREEN RESULTS WILL ONLY BE SENT OUT UPON PHYSICIAN ORDER. VISTA Urine Drug Screen methods provide only preliminary analytical test results. A more specific alternate chemical method must be used in order to obtain a confirmed analytical result. Gas chromatography/mass spectrometery (GC/MS) is the preferred confirmatory method. Clinical consideration and professional judgement should be applied to any drug of abuse test result, particularly when preliminary positive results are used. URINE TCA TESTING MUST BE ORDERED SEPARATELY. USE TEST MNEMONIC: UTCA LAB L505.5005 VISTA UDS PH 6 Normal LAB L505.5015 <1000 ng/mL AMPHETAMINES Normal NEGATIVE LAB L505.5025 < 200 ng/mL BARBITIURATES Normal NEGATIVE LAB L505.5035 < 200 ng/mL BENZODIAZIPINE Normal NEGATIVE LAB L505.5045 < 300 ng/mL COCAINE Normal NEGATIVE LAB L505.5055 < 500 ng/mL ECSTACY Normal NEGATIVE LAB L505.5065 < 300 ng/mL METHADONE Normal NEGATIVE LAB L505.5075 < 300 ng/mL OPIATES Normal NEGATIVE LAB L505.5085 < 25 ng/mL PCP Normal NEGATIVE LAB L505.5095 < 50 ng/mL THC Normal NEGATIVE Performed By: #### L505.5000, L505.6240 #### [facility] [address] [place], [place], [id number] NICOTINE URINE DRUG Collected: 08/28/2017 Status: F Source: FREDDY SCREEN 3:18 PM [facility] REPOSITORY Order Comment: List of Drugs Taken or Suspected? UNK TYPE CODE TESTS RESULT OUT OF RANGE REFERENCE UNITS LAB L505.6250 TO BE Normal CONFIRMED Result Comment: CONFIRMATORY TESTING FOR ALL POSITIVE URINE DRUG SCREEN RESULTS WILL ONLY BE SENT OUT UPON PHYSICIAN ORDER. The results of Urine Drug Screen methods provide only preliminary analytical test results. A more specific alternate chemical method must be used in order to obtain a confirmed analytical result. Gas chromatography/mass spectrometery (GC/MS) is the preferred confirmatory method. Clinical consideration and professional judgement should be applied to any drug of abuse test result, particularly when preliminary positive results are used. LAB L505.6270 <200 ng/mL Normal COT DRG Negative SCREEN Result Comment: Cotinine is the first-stage metabolite of Nicotine. Performed By: #### L505.5000, L505.6240 #### [facility] [address] [place], [address] URINALYSIS, ROUTINE Collected: 08/28/2017 Status: F Source: FREDDY (DIPSTICK) 3:18 PM [facility] REPOSITORY Order Comment: How was Urine Obtained? Urine, Random TYPE CODE TESTS RESULT OUT OF RANGE REFERENCE UNITS LAB L400.3000 Yellow COLOR Normal Yellow LAB L400.3050 Clear Normal CLARITY Clear LAB L400.3200 Normal mg/dl Normal GLUCOSE, UR Normal LAB L400.3300 Negative mg/dL Normal BILIRUBIN URINE Negative LAB L400.3400 Negative mg/dl Normal KETONE UR Negative LAB L400.3465 1.002-1.030 Normal SP.GR. DIPSTX 1.015 LAB L400.3550 5.0 - 8.0 pH UR Normal 7.0 LAB L400.3600 Negative mg/dl PROT Normal DIPSTX Negative LAB L400.3700 Normal mg/dl Normal UROBILI Normal LAB L400.3750 Negative Normal NITRITE UR Negative LAB L400.3780 Negative /ul Normal OCCULT BLOOD-UR Negative LAB L400.3800 Negative /ul LEUK Normal ESTERASE Negative Performed By: #### L400.2010 #### [facility] [address] [place], [address] CBC W/DIFF, AUTOMATED Collected: 08/28/2017 Status: F Source: FREDDY 3:18 PM [facility] REPOSITORY TYPE CODE TESTS RESULT OUT OF RANGE REFERENCE UNITS LAB L100.1000 4.4-11.0 K/mm3 Normal WBC 10.4 LAB L100.1200 4.2-5.4 M/mm3 Normal RBC 4.30 LAB L100.1300 12.0-15.0 g/dl Normal HGB 13.5 LAB L100.1400 37-47 % Normal HCT 39.6 LAB L100.1500 81-99 fL Normal MCV 92.1 LAB L100.1600 27.0-32.0 pg Normal MCH 31.4 LAB L100.1700 32-36 g/gl Normal MCHC 34.1 LAB L100.1810 11.6-14.6 % Normal RDW CV 12.5 LAB L100.1820 35.1-43.9 fl Normal RDW SD 41.7 LAB L100.1900 150-450 K/mm3 Normal PLT 217 LAB L100.2000 6.2-12.0 fl Normal MPV 11.5 LAB L100.2100 47-70 % High NEUT% 74.9 LAB L100.2200 19-41 % Low LY% 17.2 LAB L100.2300 0-10 % Normal MONO% 6.1 LAB L100.2400 0-5 % Normal EO% 0.8 LAB L100.2500 0-1 % Normal BASO% 0.2 LAB L100.2550 0.0-0.9 % Normal IM GRAN % 0.800 Result Comment: IG% - Immature Granulocytes (promyelocytes, myelocytes and metamyelocytes) > 1% indicates that a LEFT SHIFT is Present. LAB L100.2620 2.0-7.7 X10 3/uL High Absolute Neut 7.8 LAB L100.2720 0.83-4.51 X10 3/ul Normal Absolute Lymph 1.78 Performed By: #### L100.0100 #### [facility] [address] [place], [place], [id number] THYROID STIM HORMONE Collected: 08/28/2017 Status: F Source: BR[place] (TSH) 3:18 PM [facility] REPOSITORY TYPE CODE TESTS RESULT OUT OF RANGE REFERENCE UNITS LAB L501.9520 0.358-3.74 uIU/mL Normal TSH 1.03 Performed By: #### L501.9520 #### [facility] [place], [address] RUBELLA IGG Collected: 08/28/2017 Status: F Source: BR[place]GET[place] 3:18 PM [facility] REPOSITORY TYPE CODE TESTS RESULT OUT OF RANGE REFERENCE UNITS LAB L509.4000 IU/mL Normal Rubella IgG 41.5 Result Comment: Antibody results Interpretation of Immune Status < 5 IU/ml Presumed Non-immune 5 - < 10 IU/ml Equivocal > or = 10 IU/ml Presumed Immune Performed By: #### L509.4000, L3890.6005 #### [facility] [place], [place], [id number] HIV - [facility] Collected: 08/28/2017 Status: F Source: [place] 3:18 PM [facility] REPOSITORY TYPE CODE TESTS RESULT OUT OF RANGE REFERENCE UNITS LAB L3890.6005 Nonreactive Normal HIV - [facility] Non-Reactive Performed By: #### L509.4000, L3890.6005 #### [facility] [place], [address] T AND S-NO Collected: 08/28/2017 Status: F Source: [place] CHARGE W/PNP 3:18 PM [facility] REPOSITORY Order Comment: Reason for Type AND Screen/Red Cells: Surgery? N TYPE CODE TESTS RESULT OUT OF RANGE REFERENCE UNITS LAB B10.0800 O Normal BLOOD POSITIVE TYPE GEL LAB B100.4050 Normal Ab SCREEN NEGATIVE GEL Performed By: #### B100.7550 #### [facility] [address] [place], [place], [id number] HEPATITIS B SURFACE Collected: 08/28/2017 Status: F Source: FREDDY AG 3:18 PM [facility] REPOSITORY TYPE CODE TESTS RESULT OUT OF RANGE REFERENCE UNITS LAB L3100.0400 Negative Normal HB Negative SURF AG Result Comment: Performed at: - [facility] [id number] Roller Maker: Terence Munoz PhD, Phone: [phone] Performed By: #### L3100.0390, L3100.0625 #### [facility] (refer to report for specific site) refer to report for address and phone number HEPATITIS C ANTIBODIES Collected: 08/28/2017 Status: F Source: FREDDY 3:18 PM [facility] REPOSITORY TYPE CODE TESTS RESULT OUT OF RANGE REFERENCE UNITS LAB L3100.0650 0.0-0.9 s/co ratio Normal HEP C AB <0.1 Result Comment: Negative: < 0.8 Indeterminate: 0.8 - 0.9 Positive: > 0.9 The CDC recommends that a positive HCV antibody result be followed up with a HCV Nucleic Acid Amplification test (480466). Performed By: #### L3100.0390, L3100.0625 #### [facility] (refer to report for specific site) refer to report for address and phone number RPR Collected: 08/28/2017 Status: F Source: FREDDY 3:18 PM [facility] REPOSITORY TYPE CODE TESTS RESULT OUT OF REFERENCE UNITS RANGE LAB L700.5100 NONREACTIVE Normal RPR NONREACTIVE Performed By: #### L700.5100 #### [facility] [address] [place], [place], [id number] CT/NG [facility] BY PCR Collected: 08/04/2017 Status: F Source: FREDDY 3:30 PM [facility] REPOSITORY TYPE CODE TESTS RESULT OUT OF RANGE REFERENCE UNITS LAB L8200.2100 Negative Normal Chlam Negative Trac PCR LAB L8200.2200 Negative Normal NG by Negative PCR Performed By: #### L8200.2000 #### [facility] [address] [place], [place], [id number] MISCELLANEOUS LAB Collected: 08/04/2017 Status: F Source: FREDDY PROCEDURE 3:30 PM [facility] REPOSITORY Order Comment: CYTOLOGY INFORMATION: - CLINICAL INFORMATION: - DATE LMP/MENOPAUSE: 07/02/18 LMP - COLLECTION VIAL: Thin Prep Vial - PLANT BUYER SOURCE: CERVICAL/ENDOCERVICAL - COLLECTION TECHNIQUE: BRUSH/SPATULA Comments: # APTIMA PAP Test(s) Ordered: # APTIMA PAP TYPE CODE TESTS RESULT OUT OF RANGE REFERENCE UNITS LAB L801.1541 Normal [facility] LAB TEST Result Comment: Test Ordered: IGP, Aptima HPV, rfx 16/18,45; Physician Read Pap Interpretation: EPITHELIAL CELL ABNORMALITY. ATYPICAL SQUAMOUS CELLS OF UNDETERMINED SIGNIFICANCE Pathologist Provided ICD Codes: R87.610 Specimen Adequacy: Satisfactory for evaluation. Endocervical and/or squamous metaplastic cells (endocervical component) are present. Comments: The pap smear is a screening test designated to aid in the detection of pre-malignant and malignant conditions of the uterine cervix. It is not a diagnostic procedure and should not be used as the sole means of detecting cervical cancer. Both false-positive and false-negative reports do occur. This liquid based ThinPrep(R) pap test was screened with the use of an image guided system. Performed by Jennifer Riley, [employer] Electronically signed by Manny Cespedes MD (Charles), Pathologist This test detects fourteen high-risk HPV types (16/18/31/33/35/39/45/ 51/52/56/58/59/66/68) without differentiation. HPV Results: HPV Aptima: POSITIVE TESTING PERFORMED AT [facility]. ORIGINAL REPORT ON FILE IN LAB CONTAINS ADDITIONAL TEST SITE INFORMATION. Performed By: #### L801.1541 #### [facility] [address] [place], [place], [address] ALLERGIES ALLERGIES DATE TYPE / CODE NAME / CODE REACTION SEVERITY SOURCE 05/29/2018 Drug Penicillins/S59917 Unknown Unknown [place] Allergy/416 0476(RXNORM) [facility] 055242([facility] ED CT) Repository 10/23/2017 Drug PENICILLINS Uncertain. [facility] Children Class/68057 Allergy as Hospital 1003([facility] child Repository CT) ENCOUNTERS ENCOUNTERS ADMIT/DISCHARGE ACCOUNT ADMITTING ENCOUNTER LOCATION SOURCE NUMBER CLASS 05/31/2018/05/31/20 [id number] Ambulatory [address] ing:SDCRoom: Repository AC16 05/01/2018 [id number] [facility] ing:LABSPEC Repository 02/22/2018 [id number] Ambulatory BMSBuilding:[facility] Repository 02/21/2018/02/24/20 [id number] Krishna Edwards Inpatient [address] ing:WPRoom: Repository SO913Gil: 1 02/21/2018 [id number] Krishna Edwards Ambulatory BMSBuilding:[facility]ia [facility] MS.CF[facility] Repository 02/21/2018 [id number] Krishna Edwards Ambulatory BMSBuilding:[place] [place] MS.[facility] Repository 02/15/2018 [id number] [facility] ing:LABSPEC Repository 02/05/2018 [id number] Ambulatory Building:[facility] Repository 02/01/2018 [id number] [facility] ing:LABSPEC Repository 01/11/2018/01/12/20 [id number] Ambulatory Building:[address] Repository 01/01/2018 [id number] [facility] ing:LAB Repository 12/23/2017 [id number] [facility] ing:LAB.FUTUR Repository E 12/18/2017 [id number] [facility] ing:LABSPEC Repository 12/18/2017 [id number] Ambulatory Building:[facility] Repository 10/23/2017/10/24/19 [id number] Ambulatory Building:[facility] Repository 10/23/2017/10/24/19 [id number] Ambulatory Building:[address] Repository 08/28/2017 [id number] Ambulatory [facility] ing:WOBLAB Repository 08/04/2017 [id number] Ambulatory [facility] ing:LABSPEC Repository PAYERS PAYERS ENCOUNTER GUARANTOR PAYER SUBSCRIBER SOURCE 05/31/2018 JOYCE A Primary JOYCE A [place] [id number] Insurance:ANTHEMPolic BRUCEDOB: [facility] y [place]: [id number] [id number] Repository [address]Suw: (330) Date:3197-08-05RJ [phone] () RUTH ANN SHAHID [address]WI: 05/31/2018 Secondary NOT GIVENUNK [place] Insurance:SELF PAY [facility] Number: Effective Repository Date:2018-05-14 05/01/2018 JOYCE A Primary JOYCE A [place] [id number] Insurance:ANTHEMPolic BRUCEDOB: [facility] y Number: [id number], [place] [id number] Repository [address]Cff: (330) Date:6421-72-94DY [phone] () [id number], [place] [address]HA: 05/01/2018 Secondary NOT GIVENUNK [place] Insurance:SELF PAY [facility] Number: Effective Repository Date:2018-05-01 02/22/2018 JOYCE A Primary JOYCE A [place] [id number] Insurance:ANTHEMPolic BRUCEDOB: [facility] y Number: [id number], [place] [id number] Repository [address]Wkj: (330) Date:6739-37-84WJ [phone] () RUTH ANN SHAHID [address]LX: 02/22/2018 Secondary NOT GIVENUNK [place] Insurance:SELF PAY [facility] Number: Effective Repository Date:2018-02-22 02/21/2018 JOYCE A Primary JOYCE A [place] [id number] Insurance:ANTHEMPolic BRUCEDOB: [facility] [place] y Number: [id number], [place] [id number] Repository [address]Dvz: (330) Date:7357-39-42VJ [phone] () [id number] [place] [address]MT: 02/21/2018 Secondary NOT GIVENUNK [place] Insurance:SELF PAY [facility] Number: Effective Repository Date:2018-02-21 02/21/2018 JOYCE A Primary JOYCE A [place] [id number] Insurance:ANTHEMPolic [facility] Number: [id number] Hospital Medical [id number] Repository [address]Pbn: (330) Date:7102-78-16ES [phone] () [id number], [place] [address]LK: 02/21/2018 Secondary NOT GIVENUNK [place] Insurance:SELF PAY [facility] Number: Effective Repository Date:2018-02-21 02/21/2018 JOYCE A Primary JOYCE A [place] [id number] Insurance:ANTHEMPolic [facility]UCEDOB[facility] Number: [id number] Hospital Medical [id number] Repository [address]Azi: (330) Date:0917-34-94ZY [phone] () [id number], [place] [address]BT: 02/21/2018 Secondary NOT GIVENUNK [place] Insurance:SELF PAY [facility] Number: Effective Repository Date:2018-02-21 02/15/2018 JOYCE A Primary JOYCE A [place] [id number] Insurance:ANTHEMPolic BRUCEDOB: [facility] y Number: [id number] Hospital Medical [id number] Repository [address]Lcv: (330) Date:4335-85-47SK [phone] () 200[address]FWIHYDA, [place] [address]EL: 02/15/2018 Secondary NOT GIVENUNK [place] Insurance:SELF PAY [facility] Number: Effective Repository Date:2018-02-15 02/05/2018 JOYCE BRUCEDOB: Primary JOYCE BRUCEDOB: [facility] Insurance:ANTHEMPolic [id number] y Number: [address] Repository [place], [place] [id number] [facility] [place] [place] [address]Ywj: (330) Date: [phone] () 02/01/2018 JOYCE A Primary JOYCE A [place] [id number] Insurance:ANTHEMPolic BRUCEDOB: [facility] y Number: [id number], [place] [id number] Repository [address]Pli: (330) Date:4771-71-53CD [phone] () 403[address]MBZMUPB, [place] [address]PT: 02/01/2018 Secondary NOT GIVENUNK [place] Insurance:SELF PAY [facility] Number: Effective Repository Date:2018-02-01 01/11/2018 JOYCE BRUCEDOB: Primary JOYCE BRUCEDOB: [facility] [id number] Insurance:ANTHEMPolic [id number] y Number: 4 [place], [place] [id number] [place], [place] [address]Tbp: (330) Date: [phone] () 01/01/2018 JOYCE A Primary JOYCE A [place] [id number] Insurance:ANTHEMPolic BRUCEDOB: [facility] y Number: [id number], [place] [id number] Repository [address]Zxr: (330) Date:4834-36-04UW [phone] () [address] [place] [address]WN: 01/01/2018 Secondary NOT GIVENUNK [place] Insurance:SELF PAY [facility] Number: Effective Repository Date:2017-12-26 12/23/2017 JOYCE HANDY Primary JOYCE HANDY [place] [id number] Insurance:ANTHEMPolic BRUCEDOB: [facility] y Number: [id number], [place] [id number] Repository [address]Ass: (330) Date:1810-24-72DN [phone] () [id number] [place] [address]DA: 12/23/2017 Secondary NOT GIVENUNK [place] Insurance:SELF PAY [facility] Number: Effective Repository Date:2017-12-20 12/18/2017 JOYCE HANDY Primary JOYCE HANDY [place] [id number] Insurance:ANTHEMPolic BRUCEDOB: [facility] y Number: [id number], [place] [id number] Repository [address]Kzm: (330) Date:9106-82-89BV [phone] () [id number] [place] [address]FT: 12/18/2017 Secondary NOT GIVENUNK [place] Insurance:SELF PAY [facility] Number: Effective Repository Date:2017-12-18 12/18/2017 JOYCE BRUCEDOB: Primary JOYCE BRUCEDOB: [facility] Insurance:ANTHEMPolic [id number] y Number: [address] Repository [facility] [place] [id number] [place], [place] [address]Glc: 330) Date: [phone] () 10/23/2017 JOYCE BRUCEDOB: Primary JOYCE BRUCEDOB: [facility] Insurance:ANTHEMPolic [id number] y Number: [address] [place]ository [place] [id number] [place], [place] [address]Nvm: (330) Date: [phone] () 10/23/2017 JOYCE BRUCEDOB: Primary JOYCE BRUCEDOB: [facility] [id number] Insurance:ANTHEMPolic [id number] y Number: 4 [place], [place] [id number] [place], [place] [address]Wbe: (330) Date: [phone] (HP) 08/28/2017 JOYCE OLE Primary JOYCE OLE [place] [id number] Insurance:ANTHEMPolic BRUCEDOB: [facility] y Number: [id number], [place] [id number] Repository [address]Dvi: (330) Date:6897-71-76IJ [phone] () [id number], [place] [address]CZ: 08/28/2017 Secondary NOT GIVENUNK [place] Insurance:SELF PAY [facility] Number: Effective Repository Date:2017-08-28 08/04/2017 JOYCE HANDY Primary JOYCE OLE [place] [id number] Insurance:ANTHEMPolic BRUCEDOB: [facility] y Number: [id number], [place] [id number] Repository [address]Fpa: (330) Date:6596-76-12PI [phone] () [id number], [place] [address]HZ: 08/04/2017 Secondary NOT GIVENUNK [place] Insurance:SELF PAY [facility] Number: Effective Repository Date:2017-08-04
== END 2018-05-31 14:44 | disposition home or self-care (01) ==
LOC: SDC 10:22 → AC 10:24
PROVIDERS: Anesthesiology; Referring Provider Obstetrics & Gynecology; Visit Provider Obstetrics & Gynecology
PROC: 0UBC7ZZ Excision of Cervix, Via Natural or Artificial Opening (ICD-10-PCS; CPT 57522; principal; 2018-05-31 11:45)
DX: D06.9 Carcinoma in situ of cervix, unspecified (principal); Z97.5 Presence of (intrauterine) contraceptive device; Z88.0 Allergy status to penicillin; Z87.891 Personal history of nicotine dependence
CPT/HCPCS: 57522; 81025; 85027; 88305; 88307; 88341; 88342; J7120

== ENCOUNTER 2018-07-12 07:16 | Day surgery (SDC) | payer BC, SELFPAY ==
[2018-07-12] VITALS (10 sets, daily range): BP systolic 106–125; BP diastolic 63–85; PULSE 77–96; RESP 16–18; TEMP 36.4–37.3; O2SAT 98–100; BMI 27.0
--- NOTE | 2018-07-12 | ECC_PTH ---
PATIENT: JOYCE PAREDES LOC: [facility] [place] U#:[id number] AGE/SX: 32/F ROOM: RE07/12/[address]: Dr. Corina Arnold MD : 1985 BED: DIS: 07/12/2018 SPEC #: [id number] RECD: 07/12/18 15:15 STATUS: TOLU BURNS #: [id number] DEAN: 07/12/18 00:[address]: Corina Stuart DEPT: SURGICAL PATHOLOGY RECD BY: Omer Roberts ENTERED: 07/12/18 15:15 SP TYPE: ECC DIEGO DR: Estela Primary Care Phys Tissues: A - Endocervical B - Endocervical Procedures: Surgery Specimen Level IV HEADER OPERATION: Cold knife conization PRE-OP DIAGNOSIS: High-grade squamous intraepithelial lesion on cytologic smear of cervix and moderate cervical dysplasia TISSUE SUBMITTED: A - Endocervical curettings, B - Cold cone biopsy MICROSCOPIC DIAGNOSIS A. Endocervical curettings: Scant fragments of benign endocervical epithelium, no pathologic diagnosis. Negative for dysplasia. B. Cervix, cold cone biopsy: Focal mild squamous dysplasia (LGSIL, VIKAS I) Resection margins are free of dysplastic changes. Chronic inflammation. See comment. SJ:shelly 07/16/18 COMMENT Immunohistochemistry ([id number]) for surrogate HPV marker (p16) supports the above diagnosis. Please make reference to previous specimen ([id number]) cervix, 6 o'clock, biopsy with diagnosis of desquamated fragments of squamous epithelium with dysplastic changes, cervix, 10 o'clock, biopsy with diagnosis of mild and moderate squamous dysplasia and ECC with diagnosis of minute detached and unoriented fragments of squamous epithelium with moderate dysplastic changes and ([id number]) ectocervix, LEEP conization with diagnosis of focal mild squamous dysplasia and endocervical curettings with diagnosis of a few minute, detached and unoriented fragments of squamous epithelium with focal moderate dysplastic changes. Case has been reviewed in consultation with Dr. Anderson who concurs with the above diagnosis. IDC:AM MICROSCOPIC DESCRIPTION Slides are reviewed. GROSS DESCRIPTION A - Received in fixative is one container labeled with the patient's name and designated endocervical curettings. The specimen consists of scant fragment of hemorrhagic mucoid tissue submitted entirely for cell block preparation. B - Received in fixative is one container labeled with the patient's name and designated cold cone biopsy. The specimen consists of a joyce, indurated piece of tissue, unoriented consistent with LEEP conization measuring 2 x 1.5 cm and up to 3 cm in length. No mucosal lesion is identified. The nonmucosal surface is inked black. The endocervical margin is inked. The specimen is serially sectioned and submitted entirely in four cassettes with each cassette containing one quadrant. / SJ:rg 07/12/18 TC:4 CPT: 46555 x2
--- NOTE | 2018-07-12 | IMM_PTH ---
PATIENT: JOYCE PAREDES LOC: [facility] [place] U#:[id number] AGE/SX: 32/F ROOM: RE07/12/[address]: Dr. Corina Arnold MD : 1985 BED: DIS: 07/12/2018 SPEC #: [id number] RECD: 07/16/18 11:01 STATUS: TOLU REPrimitivo #: [id number] DEAN: 07/12/18 00:[address]: Corina Stuart DEPT: IMMUNOHISTOCHEMISTRY RECD BY: Marisa White ENTERED: 07/16/18 11:02 SP TYPE: IMMUNO OTHR DR: No Primary Care Phys Tissues: B - Uterine cervix, NOS Procedures: p16 (initial) KI-67 (add) P16 (add) PHYSICIAN & INSTITUTION [place] [id number] SPECIMEN INFORMATION: Tissue Source: B - Cold cone biopsy Clinical Info: HGSIL Specimen Number: [id number] B1 & B3 CPT code: 47380, 48881 x3 METHODOLOGY: Deparaffinized sections of prefer/formalin-fixed tissue or PAP/DQ stained slides are incubated with monoclonal/polyclonal antibodies/oligonucleotide probes. Localization is made via biotin free immunoperoxidase method. Appropriate controls are performed and reacted as expected. Results on target cell population are indicated in the following table: RESULTS: ANTIBODY / CLONE RESULT Block B1 P16 (E6H4) positive, focal and patchy Ki-67 (30-9) positive, low Block B3 P16 (E6H4) positive, focal and patchy Ki-67 (30-9) negative These tests were developed and their performance characteristics determined by [facility]. They may not have been cleared or approved by the U.S. Food and Drug Administration. The FDA has determined that such clearance or approval is not necessary. INTERPRETATION: B. Cold cone biopsy: Focal mild squamous dysplasia. SJ:shelly 07/17/18
--- NOTE | 2018-07-12 06:50 | PCM.HPOB.BLA ---
- Problem List (1) Severe cervical dysplasia Status: Acute Comment: VIKAS 1-2 at 10 o'clock on colposcopy. LGSIL PAP History and Physical Date of Admission: 07/12/18 Surgical History and Physical Date: 07/12/2018 Name: JOYCE MARTÍNEZ Age: 32 Date of : 1985 Joyce Martínez, a 32 year old female 4 0 1 0 4, presents for cold knife cone on July 12, 2018 at 8:50. 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 Pathology showed positive margins on the ectocervix WITH VIKAS 1 and positive ECC with CINII. She is scheduled for re-excision with cold knife cone. MEDICATIONS HISTORY: Current medications prescribed by our practice are: 1. ParaGard T 380A 380 square mm intrauterine device, As Directed ALLERGIES: Pcn, Hives, Penicillins and Hives Infections - Chicken pox, Mumps and Measles Illnesses - constipation Accidents - None Hospitalizations - Childbirth and kidney stones in 2010 patient has HPV; Review of Systems: GENERAL - Denies fever, or chills SKIN - Denies skin changes EYES - Denies visual changes EARS - Denies difficulty hearing NOSE - Denies nasal congestion or bleeding MOUTH - Denies sore throat or difficulty swallowing NECK - Denies pain or swelling RESPIRATORY - Denies shortness of breath or wheezing CARDIOVASCULAR - Denies palpitations or chest pain GASTROINTESTINAL - Denies nausea, vomiting, diarrhea, constipation GENITOURINARY - Denies dysuria, frequency of urination, incontinence of urine MUSCULOSKELETAL - Denies joint or muscle pain NEUROLOGICAL - Denies localized numbness or weakness PSYCHIATRIC - Denies depression or anxiety ENDOCRINE - Denies heat or cold intolerance, weight loss or gain HEMATO-IMMUNOLOGIC - Denies excesive bleeding with cuts SOCIAL HISTORY: Alcohol Use - RARELY not while Smoking - smoked x 8 years. Quit 4 years ago. 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 MENSTRUAL HISTORY: LMP Known?- Definite, LMP - 05/22/18, Age Onset Menarche - 13 PAST PREGNANCIES: Total Pregnancies - 5; Full Term Pregnancies - 4; Premature - 0; Abortions, Induced - 0; Abortions, Spontaneous - 1; Ectopics - 0; Multiple Births - 0; Living Children - 4 SURGICAL HISTORY: 1. 05/31/2018 LEEP, endocervical curettage ; Corina Arnold MD - PHYSICAL EXAM BP- 100/70 Sitting, Right arm, regular cuff Temp- 97.8 Taken Orally Weight- 158.88931 lbs Height- 64.75 inch BMI:26.59 CONSTITUTIONAL - NAD, well nourished, and well developed SKIN - No rash, lesions, or ulcers HEENT - normocephalic, atraumatic, sclerae anicteric LUNGS - normal respiratory rate and rhythm EXTREMITIES - No edema or calf tenderness NEUROLOGICAL - normal gait, normal balance, normal motor PSYCHIATRIC - A and O to time, place, person, mood and affect External Genitial Vagina - non-tender without lesions Urethra/Urethral Meatus - non-tender Bladder - non-tender Vagina - vaginal schrader are pink and moist without loss of rugae and no evidence of atrophy Cervix - bimanual deferred, LEEP excisional bed well healed and without defects Uterus - bimanual deferred Adnexa - bimanual deferred 05/01/18 COLPOSCOPY PATH: A. Cervix, 6 o'clock, biopsy: Desquamated fragments of squamous epithelium with dysplastic changes.. Fragments of desquamated benign endocervical epithelium cells and mucous. See comment. B. Cervix, 10 o'clock, biopsy: Mild and moderate squamous dysplasia (HGSIL and VIKAS I-II). Fragments of benign endocervical mucosa. C. ECC: Minute detached and unoriented fragments of squamous epithelium with Moderate dysplastic changes. Fragments of benign endocervical epithelium and mucous. Fragments of benign endometrial tissue. 05/31/18 LEEP PATHOLOGY MICROSCOPIC DIAGNOSIS A. Ectocervix, LEEP conization: Focal mild squamous dysplasia with HPV changes (LGSIL and VIKAS I). Chronic inflammation. Endocervical resection margin is focally positive for mild dysplasia. B. Endocervical curettings: A few minute detached and unoriented fragments of squamous epithelium with focal moderate dysplastic (HGSIL, VIKAS II) changes. Fragments of benign endocervical epithelium and mucous. ASSESSMENT/PLAN: 1. High Grade Squamous Intraepithelial Lesion On Cytologic Smear Of Cervix (hgsil) and Moderate Cervical Dysplasia Had VIKAS 1-2 at 10 o'clock on bx LEEP with positive ectocervical margins and + ECC with CIN2 CK planned - r/b/i reviewed with patient. Consents to be signed on day of procedure.
--- NOTE | 2018-07-12 06:55 | HP.PCM_ITS ---
- Problem List (1) Severe cervical dysplasia Status: Acute Comment: VIKAS 1-2 at 10 o'clock on colposcopy. LGSIL PAP History and Physical Date of Admission: 07/12/18 Surgical History and Physical Date: 07/12/2018 Name: JOYCE MARTÍNEZ Age: 32 Date of : 1985 Joyce Martíenz, a 32 year old female 4 0 1 0 4, presents for cold knife cone on July 12, 2018 at 8:50. 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 Pathology showed positive margins on the ectocervix WITH VIKAS 1 and positive ECC with CINII. She is scheduled for re- excision with cold knife cone. MEDICATIONS HISTORY: Current medications prescribed by our practice are: 1. ParaGard T 380A 380 square mm intrauterine device, As Directed ALLERGIES: Pcn, Hives, Penicillins and Hives Infections - Chicken pox, Mumps and Measles Illnesses - constipation Accidents - None Hospitalizations - Childbirth and kidney stones in 2010 patient has HPV; Review of Systems: GENERAL - Denies fever, or chills SKIN - Denies skin changes EYES - Denies visual changes EARS - Denies difficulty hearing NOSE - Denies nasal congestion or bleeding MOUTH - Denies sore throat or difficulty swallowing NECK - Denies pain or swelling RESPIRATORY - Denies shortness of breath or wheezing CARDIOVASCULAR - Denies palpitations or chest pain GASTROINTESTINAL - Denies nausea, vomiting, diarrhea, constipation GENITOURINARY - Denies dysuria, frequency of urination, incontinence of urine MUSCULOSKELETAL - Denies joint or muscle pain NEUROLOGICAL - Denies localized numbness or weakness PSYCHIATRIC - Denies depression or anxiety ENDOCRINE - Denies heat or cold intolerance, weight loss or gain HEMATO-IMMUNOLOGIC - Denies excesive bleeding with cuts SOCIAL HISTORY: Alcohol Use - RARELY not while Smoking - smoked x 8 years. Quit 4 years ago. Diet - no special diet Lifestyle - Exercise - 2-3 times week treadmill Seat Belt Use - always Employer - [employer] 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 MENSTRUAL HISTORY: LMP Known?- Definite, LMP - 05/22/18, Age Onset Menarche - 13 PAST PREGNANCIES: Total Pregnancies - 5; Full Term Pregnancies - 4; Premature - 0; Abortions, Induced - 0; Abortions, Spontaneous - 1; Ectopics - 0; Multiple Births - 0; Living Children - 4 SURGICAL HISTORY: 1. 05/31/2018 LEEP, endocervical curettage ; Corina Arnold MD - PHYSICAL EXAM BP- 100/70 Sitting, Right arm, regular cuff Temp- 97.8 Taken Orally Weight- 158.61870 lbs Height- 64.75 inch BMI:26.59 CONSTITUTIONAL - NAD, well nourished, and well developed SKIN - No rash, lesions, or ulcers HEENT - normocephalic, atraumatic, sclerae anicteric LUNGS - normal respiratory rate and rhythm EXTREMITIES - No edema or calf tenderness NEUROLOGICAL - normal gait, normal balance, normal motor PSYCHIATRIC - A and O to time, place, person, mood and affect External Genitial Vagina - non-tender without lesions Urethra/Urethral Meatus - non-tender Bladder - non-tender Vagina - vaginal schrader are pink and moist without loss of rugae and no evidence of atrophy Cervix - bimanual deferred, LEEP excisional bed well healed and without defects Uterus - bimanual deferred Adnexa - bimanual deferred 05/01/18 COLPOSCOPY PATH: A. Cervix, 6 o'clock, biopsy: Desquamated fragments of squamous epithelium with dysplastic changes.. Fragments of desquamated benign endocervical epithelium cells and mucous. See comment. B. Cervix, 10 o'clock, biopsy: Mild and moderate squamous dysplasia (HGSIL and VIKAS I-II). Fragments of benign endocervical mucosa. C. ECC: Minute detached and unoriented fragments of squamous epithelium with Moderate dysplastic changes. Fragments of benign endocervical epithelium and mucous. Fragments of benign endometrial tissue. 05/31/18 LEEP PATHOLOGY MICROSCOPIC DIAGNOSIS A. Ectocervix, LEEP conization: Focal mild squamous dysplasia with HPV changes (LGSIL and VIKAS I). Chronic inflammation. Endocervical resection margin is focally positive for mild dysplasia. B. Endocervical curettings: A few minute detached and unoriented fragments of squamous epithelium with focal moderate dysplastic (HGSIL, VIKAS II) changes. Fragments of benign endocervical epithelium and mucous. ASSESSMENT/PLAN: 1. High Grade Squamous Intraepithelial Lesion On Cytologic Smear Of Cervix (hgsil) and Moderate Cervical Dysplasia Had VIKAS 1-2 at 10 o'clock on bx LEEP with positive ectocervical margins and + ECC with CIN2 CK planned - r/b/i reviewed with patient. Consents to be signed on day of procedure.
[2018-07-12 07:46] LABS: Internal QC Validated? YES +Cl - CLEAR BKGD; Pregnancy, Urine Negative Negative
--- NOTE | 2018-07-12 09:46 | PCM.OPRPT ---
Problem List (1) Severe cervical dysplasia Status: Acute Comment: VIKAS 1-2 at 10 o'clock on colposcopy. s\p LEEP with positive margins Report of Operation Date of Procedure: 07/12/18 Pre-Operative Diagnosis: CIN2 with positive margins s/p LEEP Post-Operative Diagnosis: CIN2 with positive margins s/p LEEP Surgery/Procedure Performed:: Cold knife conization Type of Anesthesia:: Local MAC Anesthesiologist: Julio Trevino Specimen's removed: cone biopsy, endocervical curettings Estimated Blood Loss (mL): 50 Fluids Replaced: 800 ml Description of Procedure: Indications: Patient is a 32-year-old para 4 with history of VIKAS-2. She underwent a LEEP procedure on 05/31/2018. Margins were positive on the ectocervix with VIKAS-1 and positive ECC with VIKAS-2. She presents for cold knife conization. Risks, benefits, indications of procedure were reviewed at length. Patient desired to proceed. Procedure: Patient was taken to the operating room and Center was performed. She is placed in dorsal supine position and induced under MAC. She is then placed into the dorsal lithotomy. The perineum was prepped and draped in sterile fashion and straight catheterization of the bladder performed. A weighted speculum was placed into the vagina and the cervix visualized and grasped the anterior cervical lip using a single-tooth tenaculum. A paracervical block was performed for a total of 20 cc of 1% lidocaine with epinephrine 1 and 100,000. Lugol solution was applied to the cervix with resistance at 10:00. Cold knife conization was performed with retrieval of cone specimen. ECC was obtained. The excisional bed was then fulgurated and Monsel solution applied with compression and excellent hemostasis followed. Seizure was complete. The speculum was removed from the vagina. The patient was placed into dorsal supine position, awakened and transferred to the recovery room without complication. Sponge counts were correct x2. - Complications None - Admit VTE Documentation VTE Present on Admission: No VTE Mechan Device Prophylaxis: SCD's VTE Pharm Prophylaxis ordered?: No
--- NOTE | 2018-07-12 09:55 | DCINST_ITS ---
Discharge Diet: No Restrictions Discharge Activity: Return to Normal Activity, May Shower, - - No tub baths, no intercourse, no douching, no tampons; You may drive in 24 hours May resume sexual activity in: 4 weeks Lifting Restrictions: 10 lb (except baby/carrier) Call your doctor if you observe: Fever of 101 or Higher, Inability to urinate, Inability to have a bowel movement, Using more than one pad per hour, Shortness of breath, Chest pain, Calf discomfort, Uncontrolled pain Suture Line Care: Avoid Pulling/Pushing Allergies/Adverse Reactions: Allergies Penicillins [PCN] Allergy (Verified 07/11/18 11:15) Unknown Medications to take at Discharge NK 05/29/18 Primary Care Physician: Care Physician,No Primary [Primary Care Provider] - Test Results: Test results from this visit will be discussed in further detail at your follow- up appointment, if applicable. Please Follow Up With: Corina Jean MD When: 2-4 weeks
== END 2018-07-12 11:34 | disposition home or self-care (01) ==
LOC: SDC 07:16 → AC 07:18
PROVIDERS: Anesthesiology; Referring Provider Obstetrics & Gynecology; Visit Provider Obstetrics & Gynecology
PROC: 0UBC7ZZ Excision of Cervix, Via Natural or Artificial Opening (ICD-10-PCS; CPT 57520; principal; 2018-07-12 08:35)
DX: N72 Inflammatory disease of cervix uteri (principal); Z87.891 Personal history of nicotine dependence
CPT/HCPCS: 57520; 81025; 88305; 88341; 88342; J7120; J2405

== ENCOUNTER 2022-02-07 17:54 | Emergency (ER) | payer BC, SELFPAY ==
[2022-02-07 17:55] VITALS: BP 147/92; PULSE 108; RESP 18; TEMP 36.8; O2SAT 99; BMI 24.0
--- NOTE | 2022-02-07 20:19 | CT_ITS ---
INDICATION: headache EXAMINATION: CT Head or Brain W/O Contrast Injection TECHNIQUE: Multiple axial images were obtained of the head without intravenous contrast. A radiation dose optimization technique was used for this scan. IV Contrast dosage and agent: None. COMPARISON: Head CT from 02/21/2018 FINDINGS: BRAIN PARENCHYMA: No intra- or extra-axial hemorrhage. No evidence of acute major territorial infarct. No intracranial mass or mass effect. There is preservation of the azar/white matter interface. Posterior fossa structures are unremarkable. CSF SPACES: Appropriate for age. No hydrocephalus. Basal cisterns are patent. CALVARIUM, SKULL BASE, PARANASAL SINUSES AND MASTOID AIR CELLS: Calvarium is intact. No acute findings within imaged paranasal sinuses. Mastoid air cells are well-pneumatized. ORBITS: No acute findings, as visualized. CT/Brain/Head without Contrast IMPRESSION: No evidence of acute intracranial abnormality. Electronically Signed: Arnie Ybarra MD at 20:49 EDT ,
--- NOTE | 2022-02-07 20:21 | EX.ED.DYSGE1 ---
HPI History of Present Illness Chief Complaint: Numb/Ting Informant: patient Narrative Narrative: Patient presents with concerns about numbness tingling visual changes and headaches. Evidently she has been having migraine headaches since elementary school. But that used to be only about once a year. Over the last few years they have been increasing more and she has noticed more over the last few months. She will get them on alternating and different sides of her forehead. Pain is usually behind her eye. She normally gets visual changes prior to it. She stated she loses her vision. But when I talked to her she states its more like there is holes in her vision or a flash ball goes off. I have her type in visual scotoma into her search engine on her phone to bring up images. She recognizes those as typical of what she sees. She also occasionally gets numbness of her left side of the body but mostly over the left leg. But this has been going on for many years intermittently and seems to not be associated with the headaches. It is also not worsening or changing. She also complains of popping and clicking of joints in her left ankle and left knee occasionally. She is not having the neurologic visual or headache symptoms now. PFSH PFS Medical History no medical history Home Medications NK 05/29/18 [History Last Taken Unknown] Allergy/AdvReac Type Severity Reaction Status Date / Time Penicillins [PCN] Allergy Unknown Verified 02/07/22 17:55 Social History Smoking Status: Current every day smoker tobacco type: e-cigarettes ROS ROS ED Constitutional Constitutional ED: Denies chills, fever(s) or subjective Eyes Eyes: Reports change in vision and other Details: See HPI ENT ENT ED: Denies rhinorrhea Cardiovascular Cardiovascular: Denies chest pain Respiratory/Chest Respiratory/Chest: Denies cough or dyspnea Gastrointestinal Gastrointestinal: Denies nausea or vomiting Genitourinary Genitourinary ED: Denies dysuria Musculoskeletal Musculoskeletal: Denies arthralgias, back pain or myalgias Integumentary Denies abscess, Abrasions or rash Neurologic Neurologic: Reports headache(s) and paresthesias; Denies weakness Psychiatric Psychiatric: Reports anxiety Endocrine Endocrinology: Denies polydipsia or polyuria Hematologic/Lymphatic Hematologic/Lymphatic: Denies easy bleeding or easy bruising Allergic/Immunologic Allergic/Immunologic ED: Denies urticaria EXAM Physical Exam Const Vital Signs: 02/07/22 17:55 Temperature 98.3 F Temperature Source Temporal Pulse Rate 108 H Respiratory Rate 18 Blood Pressure 147/92 H Blood Pressure Mean 110 Pulse Ox 99 Oxygen Delivery Method Room Air Positive well nourished and well developed General Appearance ED: well developed and NAD HEENT Reports moist mucous membranes HEENT Narrative: No facial tenderness or asymmetry. No rashes. Eyes PERRL and EOMs intact bilaterally General Eye ED: Negative for pale conjunctiva or scleral icterus Neck no lymphadenopathy and supple Chest Wall inspection of chest normal Resp normal respiratory effort and clear to auscultation bilaterally Cardio regular rate and regular rhythm GI normal to inspection, nondistended, normoactive bowel sounds and non-tender Back/Spine no CVA tenderness Extremity normal to inspection Neuro oriented x3, CN's II-XII intact bilaterally and no sensory deficits noted Neuro Narrative: Patient's neurologic exam is normal. There is no weakness or discoordination. Range of motion of eyes are normal. Sensorium / Orientation: alert; Negative for orientation impaired, lethargic or stuporous Sensory Exam: No sensory level loss detected Motor Exam: strength 5/5 throughout; Negative for general weakness Psych mental status grossly normal Skin no rashes or lesions noted MDM MDM MDM Narrative Medical decision making narrative: Patient's electrolytes show no marked abnormalities. Minimal dehydration with elevated BUN to creatinine ratio. TSH did come back and is normal. Calcium was normal. CT showed no acute process. Patient's been having intermittent numbness on the left side of her body for 4 or more years. Certainly MS could cause this but this is not a typical picture either. It is not present now. I do not think she requires admission for this. This can be worked up as an outpatient. She is also been having migraines since grade school but have gotten worse recently. She thinks this might be due to stress which certainly could contribute to this. She is not having 1 now. Follow-up is also appropriate. Lab Data Attestation: I reviewed the patient's lab results. Labs: Laboratory Results - last 24 hr 02/07/22 20:24 Sodium 140 Potassium 3.6 Chloride 109 H Carbon Dioxide 27.0 Anion Gap 4 L BUN 13 Creatinine 0.62 Estim Creat Clear Calc 110.40 Est GFR (MDRD) Af Amer 142 Est GFR (MDRD) Non-Af 118 BUN/Creatinine Ratio 21.1 H Glucose 105 Calcium 9.2 TSH 1.51 Radiography Diagnostic Testing: Clinical Impression(s) from Imaging Studies Brain CT 02/07/22 20:19 IMPRESSION: No evidence of acute intracranial abnormality. Electronically Signed: Arnie Ybarra MD at 20:49 EDT , Discharge Plan Triage Chief Complaint: Numb/Ting ED Provider: Jovi Reddy Dx/Rx/DC Orders Clinical Impression: History of migraine, Visual field scotoma, Paresthesia of left upper and lower extremity Instructions: ED, Migraine (Classical) Prescriptions: No Action NK Primary Care Provider: Care Physician,No Primary Referrals: Allan Carey MD [Med Staff - Control Director] - As soon as possible Care Physician,No Primary [Primary Care Provider] - Disposition Disposition: Home, Self Care
[2022-02-07 20:59] LABS: Anion Gap 4 (5-15); BUN 13 mg/dL (7-18); BUN/Creat Ratio 21.1 RATIO (10-20); Calcium,Total 9.2 mg/dL (8.5-10.1); Chloride 109 mmol/L (98-107); Creatinine, Serum 0.62 mg/dL (0.55-1.02); EST Glomerular Filtration Rate 118 mL/min (>60); Est Glom Filt Rate - Afr Amer 142 mL/min (>60); Glucose 105 mg/dL (74-106); Potassium 3.6 mmol/L (3.5-5.1); Sodium Level 140 mmol/L (136-145); Thyroid Stim Hormone (TSH) 1.51 uIU/mL (0.358-3.74)
== END 2022-02-07 21:48 | disposition home or self-care (01) ==
PROVIDERS: Emergency Provider Emergency Medicine; Visit Provider Emergency Medicine
DX: H53.413 Scotoma involving central area, bilateral (principal); R20.2 Paresthesia of skin; F17.290 Nicotine dependence, other tobacco product, uncomplicated
CPT/HCPCS: 70450; 80048; 84443; 99283; A4216

== ENCOUNTER 2022-05-01 10:21 | Emergency (ER) | payer BC, SELFPAY ==
[2022-05-01 10:22] VITALS: BP 131/80; PULSE 105; RESP 18; TEMP 36.5; O2SAT 98; BMI 24.0
[2022-05-01 11:11] LABS: Color, Urine Yellow (Yellow); Glucose, Dipstick Normal (Normal); Ketone-Dipstick Negative (Negative); Leukocyte Esterase-Dipstick 500 /ul (Negative); Mucous, Urine 0 SEEN /hpf (<or=2+); Nitrite-Dipstick Negative (Negative); Occult Blood-Urine 10 /ul (Negative); Protein-Dipstick Negative (Negative); Red Blood Cells-Urine 0 SEEN /hpf (0-5); Specific Gravity, Urine 1.015 (1.002-1.030); Urine Bilirubin Dipstick Negative (Negative); Urine Clarity Sl. Cloudy (Clear); Urine Urobilinogen Normal (Normal)
[2022-05-01 11:21] LABS: Squamous Epithelial Cells - UA 25-50 SEEN /hpf (5-10)
[2022-05-01 11:22] LABS: Bacteria RARE /hpf (None Seen); Trichomonas 0-5 SEEN /hpf (None Seen); White Blood Cells 10-25 SEEN /hpf (0-5)
[2022-05-01 11:23] LABS: Internal QC Validated? YES +Cl - CLEAR BKGD; Pregnancy, Urine Negative Negative
[2022-05-01] MEDS: Ketorolac 15 MG/ML Vial IV (12:05)
[2022-05-01] MEDS: 0.9% Normal Saline 1,000 ML 1000 ML IV (12:05)
[2022-05-01 12:11] LABS: Absolute Neutrophil Count 4.7 X10^3/uL (2.0-7.7); Basophil# 0.02 X10^3/uL; Basophil% 0.3 % (0-1); Eosinophil# 0.03 X10^3/uL; Eosinophils% 0.5 % (0-5); Hematocrit 40.6 % (37-47); Hemoglobin 13.6 g/dL (12.0-15.0); Lymphocyte % 18.7 % (19-41); Mean Corp Hgb Conc 33.5 g/dL (32-36); Mean Corpuscular Hgb 31.5 pg (27.0-32.0); Mean Platelet Vol. 10.9 fl (6.2-12.0); Monocyte# 0.41 X10^3/uL; Monocyte% 6.4 % (0-10); NRBC Flagged by Analyzer 0 % (0-5); Neutrophil # 4.72 X10^3/uL (2.7-7.7); Neutrophil % 73.5 % (47-70); Platelet Count 259 K/mm3 (150-450); RBC Distribution Width SD 41.8 fl (35.1-43.9); Red Blood Count 4.32 M/mm3 (4.2-5.4); White Blood Count 6.4 K/mm3 (4.4-11.0)
[2022-05-01 12:17] LABS: ALB/GLOB Ratio 1.2 RATIO (0.9-2.4); AST(SGOT) 13 U/L (15-37); Alanine Aminotransfer ALT/SGPT 20 U/L (13-56); Alkaline Phosphatase 44 U/L (45-117); Anion Gap 6 (5-15); BUN 11 mg/dL (7-18); BUN/Creat Ratio 17.2 RATIO (10-20); Calcium,Total 8.8 mg/dL (8.5-10.1); Chloride 108 mmol/L (98-107); Creatinine, Serum 0.64 mg/dL (0.55-1.02); EST Glomerular Filtration Rate 113 mL/min (>60); Est Glom Filt Rate - Afr Amer 136 mL/min (>60); Estimated Creatinine Clearance 106.95 ml/min; Globulin 3.3 g/dL (2.2-4.2); Glucose 115 mg/dL (74-106); Potassium 3.3 mmol/L (3.5-5.1); Protein, Total 7.3 g/dL (6.4-8.2); Sodium Level 143 mmol/L (136-145)
--- NOTE | 2022-05-01 13:06 | EX.ED.DYSGE1 ---
HPI History of Present Illness Chief Complaint: Abd Pain Informant: patient Narrative Narrative: 36-year-old female presenting with pelvic/lower abdominal discomfort as well as urinary symptoms. She states she has been having issues with her bladder for couple weeks now. She is been having some dysuria, low back pain and lower abdominal discomfort. Urinary symptoms worsened over the past week. She denies any abnormal vaginal discharge or bleeding. Her last menstrual period was 2 weeks ago. She is not concerned for . She has low suspicion for sexually tendon infection but states it is possible. She denies any nausea or vomiting. No fever or chills reported. No other complaints at this time. [facility] Medical History Anxiety Home Medications phenazopyridine 200 mg tablet (Pyridium) 200 mg PO TID PRN pain 6 doses #6 tabs 05/01/22 [Rx Last Taken Unknown] sulfamethoxazole 800 mg-trimethoprim 160 mg tablet (Bactrim DS) 1 tab PO Q12H 7 days #14 tabs 05/01/22 [Rx Last Taken Unknown] Allergy/AdvReac Type Severity Reaction Status Date / Time Penicillins [PCN] Allergy Unknown Verified 05/01/22 10:24 Social History Smoking Status: Current every day smoker tobacco type: e-cigarettes ROS ROS ED Constitutional Constitutional ED: Denies chills or fever(s) Eyes Eyes: Denies change in vision ENT ENT ED: Denies sore throat Cardiovascular Cardiovascular: Denies chest pain or palpitations Respiratory/Chest Respiratory/Chest: Denies cough or dyspnea Gastrointestinal Gastrointestinal: Reports abdominal pain; Denies constipation, diarrhea, nausea or vomiting Genitourinary Genitourinary ED: Reports dysuria and urinary frequency; Denies hematuria Musculoskeletal Musculoskeletal: Reports back pain; Denies arthralgias or myalgias Integumentary Denies rash Neurologic Neurologic: Denies headache(s) or weakness Psychiatric Psychiatric: Denies anxiety EXAM Physical Exam Const Vital Signs: 05/01/22 10:22 Temperature 97.7 F L Temperature Source Temporal Pulse Rate 105 H Respiratory Rate 18 Blood Pressure 131/80 H Blood Pressure Mean 97 Pulse Ox 98 Oxygen Delivery Method Room Air Positive well nourished and well developed General Appearance ED: well developed and NAD HEENT Reports moist mucous membranes Eyes PERRL and EOMs intact bilaterally Neck no lymphadenopathy and supple Chest Wall inspection of chest normal and palpation of chest normal Resp normal respiratory effort and clear to auscultation bilaterally Cardio regular rhythm and no murmurs Rate: tachycardic GI normal to inspection, nondistended, normoactive bowel sounds and non-tender Palpation: Negative for guarding Back/Spine no CVA tenderness Extremity normal to inspection Neuro oriented x3 Sensorium / Orientation: alert Motor Exam: Negative for general weakness Psych mental status grossly normal Mood & Affect: anxious Skin no rashes or lesions noted MDM MDM MDM Narrative Medical decision making narrative: Patient is evaluated for 1 week of lower abdominal and urinary symptoms. She appears nontoxic and in no acute distress. Patient is tachycardic but she states she is very nervous. She is given IV Toradol and fluids. CBC is normal with no leukocytosis. CMP is also unremarkable. Urinalysis shows 500 leukocyte esterase, 10-25 white blood cells however is also contaminant with epithelial cells. Rare bacteria are seen. Urine test is negative. Patient does not have CVA tenderness and I have a low suspicion for pyelonephritis. Urine gonorrhea/chlamydia is sent. Patient is offered pelvic exam but declines. Patient courage to follow-up with her [employer]ENT[employer] REPRESENTATIVE. We will wait on gonorrhea chlamydia results to begin any treatment. Patient is comfortable with this. Patient will be started on Bactrim for urinary tract infection. Urine culture sent. She is also started on Pyridium for urinary discomfort. She is counseled on return precautions. Patient verbalized agreement understand this plan. Discharged home in stable condition. Lab Data Labs: Laboratory Results - last 24 hr 05/01/22 05/01/22 05/01/22 11:00 11:00 11:00 WBC 6.4 RBC 4.32 Hgb 13.6 Hct 40.6 MCV 94.0 MCH 31.5 MCHC 33.5 RDW Std Deviation 41.8 RDW Coeff of Sweta 12.0 Plt Count 259 MPV 10.9 Immature Gran % (Auto) 0.600 Neut % (Auto) 73.5 H Lymph % (Auto) 18.7 L [place] % (Auto) 6.4 Eos % (Auto) 0.5 Baso % (Auto) 0.3 Absolute Neuts (auto) 4.7 Absolute Lymphs (auto) 1.20 Nucleated RBC % 0 Sodium 143 Potassium 3.3 L Chloride 108 H Carbon Dioxide 29.0 Anion Gap 6 BUN 11 Creatinine 0.64 Estim Creat Clear Calc 106.95 Est GFR (MDRD) Af Amer 136 Est GFR (MDRD) Non-Af 113 BUN/Creatinine Ratio 17.2 Glucose 115 H Calcium 8.8 Total Bilirubin 0.30 AST 13 L ALT 20 Alkaline Phosphatase 44 L Total Protein 7.3 Albumin 4.0 Globulin 3.3 Albumin/Globulin Ratio 1.2 Urine Color Yellow Urine Clarity Sl. Cloudy Urine pH 6.0 Ur Specific [place] 1.015 Urine Protein Negative Urine Glucose (UA) Normal Urine Ketones Negative Urine Occult Blood 10 H Urine Nitrite Negative Urine Bilirubin Negative Urine Urobilinogen Normal Ur Leukocyte Esterase 500 H Urine RBC 0 SEEN Urine WBC 10-25 SEEN Ur Squamous Epith Cells 25-50 SEEN Urine Bacteria RARE Urine Mucus 0 SEEN Urine Trichomonas 0-5 SEEN Urine Test Negative Discharge Plan Triage Chief Complaint: Abd Pain ED Provider: Bhavani Hernandez Dx/Rx/DC Orders Clinical Impression: UTI (urinary tract infection), Lower abdominal pain Instructions: ED Cystitis Female Adult Prescriptions: New sulfamethoxazole-trimethoprim [Bactrim DS] 800-160 mg tablet 1 tab PO Q12H 7 Days Qty: 14 0RF phenazopyridine [Pyridium] 200 mg tablet 200 mg PO TID PRN (Reason: pain) Qty: 6 0RF Primary Care Provider: Care Physician,No Primary Referrals: Cherie Stratton MD [Med Staff - Active Staff] - 1 Week if not improving Care Physician,No Primary [Primary Care Provider] - Activity Restrictions/Additional Instructions: Alternate ibuprofen and Tylenol as needed for pain. Return if your symptoms are worsening or you develop a fever. I suspect you have a urinary tract infection which is causing her symptoms today. Disposition Disposition: Home, Self Care
[2022-05-01] MEDS: Smz/Tmp Ds Tablet 1 TABLET PO (13:17)
[2022-05-01] MEDS: Phenazopyridine 95 MG Tablet 190 MG PO (13:17)
[2022-05-01 13:54] LABS: Chlamydia Trachomatis by PCR Negative (Negative); Neisserai gonorrhoeae by PCR Negative (Negative); Probe Check PASS; Sample Adequacy Control PASS; Specimen Processing Control PASS
== END 2022-05-01 13:25 | disposition home or self-care (01) ==
PROVIDERS: Emergency Provider Emergency Medicine; Visit Provider Emergency Medicine
DX: N39.0 Urinary tract infection, site not specified (principal); F17.210 Nicotine dependence, cigarettes, uncomplicated; F41.9 Anxiety disorder, unspecified
CPT/HCPCS: 80053; 81001; 81025; 85025; 87086; 87088; 87491; 87591; 96361; 96374; 99283; J7030; A4216

== ENCOUNTER 2022-08-31 20:17 | Emergency (ER) | payer BC, SELFPAY ==
[2022-08-31 20:18] VITALS: BP 135/88; PULSE 93; RESP 19; TEMP 36.3; O2SAT 98; BMI 23.8
--- NOTE | 2022-08-31 20:36 | EKG12_ITS ---
Test Reason : CP Blood Pressure : / mmHG Vent. Rate : 099 BPM Atrial Rate : 099 BPM P-R Int : 136 ms QRS Dur : 084 ms QT Int : 352 ms P-R-T Axes : 072 085 068 degrees QTc Int : 451 ms Normal sinus rhythm with sinus arrhythmia Nonspecific ST and T wave abnormality Abnormal ECG Confirmed by LAMONT WARREN, SARTHAK ([id number]), brands editor HAYLEE NG ([id number]) on 09/05/2022 9:23:10 AM Referred By: MARISABEL Confirmed By:ARACELI MIGUEL MD
--- NOTE | 2022-08-31 20:45 | RAD_ITS ---
EXAM: XR CHEST, 1 VIEW CLINICAL INDICATION: chest pain TECHNIQUE: Frontal view of the chest. This report was created using [employer] report generation technology. COMPARISON: None. FINDINGS: LUNGS AND PLEURAL SPACES: Unremarkable. No consolidation or edema. No pneumothorax. No effusion. HEART: Unremarkable. Cardiac silhouette not enlarged. MEDIASTINUM: Central airways and mediastinal contour are unremarkable. BONES/JOINTS: Unremarkable. SOFT TISSUES: Unremarkable. RAD/Chest 1 View (Portable) IMPRESSION: No radiographic evidence of acute cardiopulmonary disease. Electronically Signed: Omer Leblanc MD at 20:58 EST ,
[2022-08-31 20:47] LABS: Absolute Lymphocyte Count 2.94 X10^3/uL (0.83-4.51); Absolute Neutrophil Count 3.6 X10^3/uL (2.0-7.7); Basophil# 0.04 X10^3/uL; Basophil% 0.6 % (0-1); Eosinophil# 0.13 X10^3/uL; Eosinophils% 1.8 % (0-5); Hematocrit 40.9 % (37-47); Hemoglobin 13.3 g/dL (12.0-15.0); Lymphocyte # 2.94 X10^3/ul (0.83-4.51); Mean Corp Hgb Conc 32.5 g/dL (32-36); Mean Corpuscular Hgb 31.1 pg (27.0-32.0); Mean Corpuscular Volume 95.6 fL (81-99); Mean Platelet Vol. 10.8 fl (6.2-12.0); Monocyte# 0.47 X10^3/uL; Monocyte% 6.6 % (0-10); NRBC Flagged by Analyzer 0 % (0-5); Neutrophil # 3.56 X10^3/uL (2.7-7.7); Neutrophil % 49.6 % (47-70); Platelet Count 329 K/mm3 (150-450); RBC Distribution Width CV 12.5 % (11.6-14.6); RBC Distribution Width SD 43.3 fl (35.1-43.9); Red Blood Count 4.28 M/mm3 (4.2-5.4); White Blood Count 7.2 K/mm3 (4.4-11.0)
[2022-08-31 21:07] LABS: Anion Gap 6 (5-15); BUN 9 mg/dL (7-18); BUN/Creat Ratio 13.4 RATIO (10-20); Calcium,Total 9.5 mg/dL (8.5-10.1); Chloride 107 mmol/L (98-107); Creatinine, Serum 0.67 mg/dL (0.55-1.02); EST Glomerular Filtration Rate 106 mL/min (>60); Est Glom Filt Rate - Afr Amer 129 mL/min (>60); Glucose 131 mg/dL (74-106); Potassium 3.9 mmol/L (3.5-5.1); Sodium Level 142 mmol/L (136-145); Troponin-I HS 3 pg/mL (3.0-54.0)
--- NOTE | 2022-08-31 21:52 | EDS_ITS ---
HPI History of Present Illness Chief Complaint: Chest Pain Informant: patient Onset/Context/Timing Onset: Today Narrative Narrative: Pain at 7 PM while at [employer]. No dyspnea nausea or diaphoresis. Currently subsiding. Vapes. Has an IUD. No recent travel surgery or immobilization no history. DVT. No cough. Mother OK around 50. Denies hypertension diabetes hyperlipidemia. CVD Risk Factors: Positive for Family History 1' </=55 and Smoking; Negative for Hypertension, Diabetes or Hypercholesterolemia PE Risk Factors: Negative for Recent Travel/Surgery, Recent Immobilization, Prior DVT or PE, Cancer or OCP + Smoking + >/=35 PFSH PFSH Medical History Anxiety Home Medications phenazopyridine 200 mg tablet (Pyridium) 200 mg PO TID PRN pain 6 doses #6 tabs 05/01/22 [Rx Last Taken Unknown] sulfamethoxazole 800 mg-trimethoprim 160 mg tablet (Bactrim DS) 1 tab PO Q12H 7 days #14 tabs 05/01/22 [Rx Last Taken Unknown] Allergy/AdvReac Type Severity Reaction Status Date / Time Penicillins [PCN] Allergy Unknown Verified 05/01/22 10:24 Social History Smoking Status: Current every day smoker tobacco type: e-cigarettes ROS ROS ED Constitutional Constitutional ED: Denies chills, fever(s) or sweats Eyes Eyes: Denies change in vision ENT ENT ED: Denies dysphagia or sore throat Cardiovascular Cardiovascular: Reports chest pain; Denies leg edema, palpitations or racing heartbeat Respiratory/Chest Respiratory/Chest: Denies cough, dyspnea or dyspnea on exertion Gastrointestinal Gastrointestinal: Denies abdominal pain, diarrhea, nausea or vomiting Genitourinary Genitourinary ED: Denies dysuria, hematuria or urinary frequency Musculoskeletal Musculoskeletal: Denies back pain, extremity pain or neck pain Integumentary Denies rash or wounds Neurologic Neurologic: Denies headache(s), paresthesias or weakness EXAM Physical Exam Const Vital Signs: 08/31/22 20:18 08/31/22 23:31 Temperature 97.4 F L Temperature Source Temporal Pulse Rate 93 Respiratory Rate 19 H Blood Pressure 135/88 H Blood Pressure Mean 103 Pulse Ox 98 Oxygen Delivery Method Room Air Room Air Positive well nourished and well developed General Appearance ED: well developed and NAD HEENT Reports moist mucous membranes normocephalic and atraumatic Eyes PERRL, EOMs intact bilaterally and conjunctivae normal General Eye ED: Yes normal appearance of both eyes Neck no lymphadenopathy and supple General: Negative for tenderness Chest Wall Chest: Negative for tenderness Resp normal respiratory effort and normal air movement Effort and Inspection: symmetric chest movement; Negative for respiratory distress Cardio regular rate, regular rhythm and no murmurs Peripheral Pulses: pulses 2+ throughout GI normal to inspection, nondistended, normoactive bowel sounds and non-tender Palpation: Negative for guarding or rebound tenderness present Back/Spine no CVA tenderness and no thoracic nor lumbar tenderness Extremity normal to inspection General Extremety ED: Negative for edema or tenderness General Extremity: Negative for edema Neuro oriented x3 and no sensory deficits noted Sensorium / Orientation: awake and alert Skin no rashes or lesions noted and no wounds Heart Score History: Slightly/Non-Suspicious ECG: Normal Age: </= 45 years Risk Factors: 1 or 2 Risk Factors Troponin: </= Normal Limit Score: 1 MDM MDM MDM Narrative Medical decision making narrative: Interventions / MDM: Differential diagnosis: ACS, atypical chest pain Diagnosis considered but do not suspect: PE, however PERC criteria negative. My EKG interpretation: Sinus rate of 99, no ST or T wave changes Imaging independently reviewed and interpreted by myself: 1 view chest x-ray: No acute process External documents reviewed: N/A Test considered but not ordered:N/A ED course: Patient symptoms resolving during my evaluation. EKG normal cardiac work-up troponin x2 negative. Symptom-free on reevaluation. Heart score is a 1. Discussed will need outpatient further work-up with stress testing. She is given follow-up as an outpatient. Return precaution discussed. PERC criteria negative. All questions were answered. Re-evaluation: stable Disposition discussed with patient/family/significant other: Patient Case discussed with consulting clinician: N/A History & Record Review Discussion w/independent historian: Patient Lab Data Attestation: I reviewed the patient's lab results. Labs: Laboratory Results - last 24 hr 08/31/22 08/31/22 08/31/22 20:41 20:41 22:30 WBC 7.2 RBC 4.28 Hgb 13.3 Hct 40.9 MCV 95.6 MCH 31.1 MCHC 32.5 RDW Std Deviation 43.3 RDW Coeff of Sweta 12.5 Plt Count 329 MPV 10.8 Immature Gran % (Auto) 0.400 Neut % (Auto) 49.6 Lymph % (Auto) 41.0 [place] % (Auto) 6.6 Eos % (Auto) 1.8 Baso % (Auto) 0.6 Absolute Neuts (auto) 3.6 Absolute Lymphs (auto) 2.94 Nucleated RBC % 0 Sodium 142 Potassium 3.9 Chloride 107 Carbon Dioxide 29.0 Anion Gap 6 BUN 9 Creatinine 0.67 Estim Creat Clear Calc 101.20 Est GFR (MDRD) Af Amer 129 Est GFR (MDRD) Non-Af 106 BUN/Creatinine Ratio 13.4 Glucose 131 H Calcium 9.5 Troponin I High Sens 3 4 Radiography Diagnostic Testing: Clinical Impression(s) from Imaging Studies Chest X-Ray 08/31/22 20:45 IMPRESSION: No radiographic evidence of acute cardiopulmonary disease. Electronically Signed: Omer Leblanc MD at 20:58 EST Reading Location ID and State: [facility] / [place] , Service support , EKG Initial EKG: Attestation: I personally reviewed and interpreted this EKG as follows: Comments: Sinus rate of 99, no ST or T wave changes Discharge Plan Triage Chief Complaint: Chest Pain ED Provider: Arden Dye Dx/Rx/DC Orders Clinical Impression: Chest pain Instructions: ED Chest Pain, Uncertain Cause Prescriptions: No Action sulfamethoxazole-trimethoprim [Bactrim DS] 800-160 mg tablet 1 tab PO Q12H 7 Days Qty: 14 0RF phenazopyridine [Pyridium] 200 mg tablet 200 mg PO TID PRN (Reason: pain) Qty: 6 0RF Primary Care Provider: Care Physician,No Primary Referrals: Tayler Moe MD [Med Staff - Java Web User Interface Developer] - 3-5 Days Care Physician,No Primary [Primary Care Provider] - Activity Restrictions/Additional Instructions: Cardiac work-up negative. Follow-up as an outpatient for further testing. Return if any worsening symptoms. Disposition Disposition: Home, Self Care Discharge Date/Time: 08/31/22 23:33
[2022-08-31 23:05] LABS: Troponin-I HS 4 pg/mL (3.0-54.0)
== END 2022-08-31 23:33 | disposition home or self-care (01) ==
PROVIDERS: Emergency Provider Emergency Medicine; Visit Provider Emergency Medicine
DX: R07.9 Chest pain, unspecified (principal); F17.290 Nicotine dependence, other tobacco product, uncomplicated; Z97.5 Presence of (intrauterine) contraceptive device
CPT/HCPCS: 71045; 80048; 84484; 85025; 93005; 99284; A4216

== ENCOUNTER 2023-03-27 20:55 | Emergency (ER) | payer MEDICAID, SELFPAY ==
[2023-03-27 20:56] VITALS: BP 139/90; PULSE 114; RESP 16; TEMP 36.7; O2SAT 98; BMI 24.0
[2023-03-27 22:59] LABS: Mucous, Urine 0 SEEN /hpf (<or=2+); Red Blood Cells-Urine 0 SEEN /hpf (0-5); Squamous Epithelial Cells - UA 0 SEEN /hpf (5-10)
[2023-03-27] MEDS: Ondansetron 4 MG/2 ML Vial IV (22:59)
[2023-03-27] MEDS: Dicyclomine 10 MG Capsule 20 MG PO (22:59)
[2023-03-27] MEDS: 0.9% Normal Saline (1000mL) 1,000 ML 999 ML IV (22:59)
[2023-03-27 23:01] LABS: Absolute Lymphocyte Count 1.86 X10^3/uL (0.83-4.51); Absolute Neutrophil Count 4.8 X10^3/uL (2.0-7.7); Basophil# 0.03 X10^3/uL; Basophil% 0.4 % (0-1); Eosinophil# 0.06 X10^3/uL; Eosinophils% 0.8 % (0-5); Hematocrit 40.8 % (37-47); Hemoglobin 13.8 g/dL (12.0-15.0); Lymphocyte # 1.86 X10^3/ul (0.83-4.51); Mean Corp Hgb Conc 33.8 g/dL (32-36); Mean Corpuscular Hgb 32.1 pg (27.0-32.0); Mean Corpuscular Volume 94.9 fL (81-99); Monocyte# 0.63 X10^3/uL; Monocyte% 8.5 % (0-10); NRBC Flagged by Analyzer 0 % (0-5); Neutrophil # 4.83 X10^3/uL (2.7-7.7); Platelet Count 231 K/mm3 (150-450); RBC Distribution Width CV 11.5 % (11.6-14.6); RBC Distribution Width SD 39.7 fl (35.1-43.9); White Blood Count 7.4 K/mm3 (4.4-11.0)
[2023-03-27 23:08] LABS: Color, Urine Yellow (Yellow); Glucose, Dipstick Normal (Normal); Ketone-Dipstick Negative (Negative); Leukocyte Esterase-Dipstick 100 /ul (Negative); Nitrite-Dipstick Negative (Negative); Occult Blood-Urine Negative /ul (Negative); Protein-Dipstick Negative (Negative); Urine Bilirubin Dipstick Negative (Negative); Urine Clarity Clear (Clear); Urine Urobilinogen Normal (Normal)
[2023-03-27 23:17] LABS: AST(SGOT) 12 U/L (15-37); Alanine Aminotransfer ALT/SGPT 25 U/L (13-56); Alkaline Phosphatase 44 U/L (45-117); Anion Gap 3 (5-15); BUN 13 mg/dL (7-18); BUN/Creat Ratio 19.1 RATIO (10-20); Bilirubin, Direct 0.14 mg/dL (0.00-0.30); Calcium,Total 8.7 mg/dL (8.5-10.1); Chloride 106 mmol/L (98-107); Creatinine, Serum 0.68 mg/dL (0.55-1.02); EST Glomerular Filtration Rate 104 mL/min (>60); Est Glom Filt Rate - Afr Amer 126 mL/min (>60); Estimated Creatinine Clearance 99.71 ml/min; Globulin 3.6 g/dL (2.2-4.2); Glucose 99 mg/dL (74-106); Lipase 46 U/L (13-75); Potassium 3.6 mmol/L (3.5-5.1); Protein, Total 7.6 g/dL (6.4-8.2); Sodium Level 139 mmol/L (136-145)
[2023-03-27 23:18] LABS: White Blood Cells 10-25 SEEN /hpf (0-5)
[2023-03-27 23:19] LABS: Bacteria RARE /hpf (None Seen)
[2023-03-27 23:20] LABS: Internal QC Validated? YES +Cl - CLEAR BKGD; Pregnancy, Urine Negative Negative; Record Kit Lot#,Urine Preg HCG0000667200
--- NOTE | 2023-03-28 01:08 | EDS_ITS ---
HPI History of Present Illness Chief Complaint: Abd Pain Informant: patient Narrative Narrative: Patient is a 37-year-old female with past medical history of preeclampsia and cervical dysplasia. She states for the past 2 to 3 days she has had generalized abdominal discomfort with mild nausea but no vomiting or diarrhea. States that today there was slight dysuria. She reports that she has had symptoms similar to this in the past and was told it could potentially be IBS. She denies any known sick contacts but states that she feels there is more going on than potential IBS and secondary to his comes in for evaluation. [facility] Medical History Anxiety Home Medications phenazopyridine 200 mg tablet (Pyridium) 200 mg PO TID PRN pain 6 doses #6 tabs 05/01/22 [Rx Last Taken Unknown] sulfamethoxazole 800 mg-trimethoprim 160 mg tablet (Bactrim DS) 1 tab PO Q12H 7 days #14 tabs 05/01/22 [Rx Last Taken Unknown] ondansetron 4 mg disintegrating tablet 4 mg PO TID PRN nausea and vomiting #21 tabs 03/28/23 [Rx Last Taken Unknown] oxycodone-acetaminophen 5 mg-325 mg tablet (Percocet) 1 tab PO Q6H PRN pain 3 days #12 tabs 03/28/23 [Rx Last Taken Unknown] Allergy/AdvReac Type Severity Reaction Status Date / Time Penicillins [PCN] Allergy Unknown Verified 03/27/23 20:58 Social History Smoking Status: Current every day smoker tobacco type: e-cigarettes ROS ROS ED Constitutional Constitutional ED: Denies chills or fever(s) ENT ENT ED: Denies sore throat Cardiovascular Cardiovascular: Denies chest pain Respiratory/Chest Respiratory/Chest: Denies cough or dyspnea Gastrointestinal Gastrointestinal: Reports abdominal pain and nausea; Denies diarrhea or vomiting Genitourinary Genitourinary ED: Reports dysuria Musculoskeletal Musculoskeletal: Denies back pain or myalgias Integumentary Denies rash Neurologic Neurologic: Denies headache(s) Hematologic/Lymphatic Hematologic/Lymphatic: Denies easy bleeding or easy bruising EXAM Physical Exam Const Vital Signs: 03/27/23 20:56 Temperature 98.1 F Temperature Source Temporal Pulse Rate 114 H Respiratory Rate 16 Blood Pressure 139/90 H Blood Pressure Mean 106 Pulse Ox 98 Oxygen Delivery Method Room Air Positive well nourished and well developed General Appearance ED: well developed HEENT Reports moist mucous membranes HEENT Narrative: No signs of infection noted in the posterior pharynx Eyes PERRL and EOMs intact bilaterally General Eye ED: Negative for scleral icterus Neck supple Resp normal respiratory effort and clear to auscultation bilaterally Cardio regular rate and regular rhythm Rate: other Other Details: Radial and carotid pulses are equal and symmetric GI non-distended GI Narrative: Abdomen is soft and nondistended with normal active bowel sounds. There is mild diffuse pain on palpation without voluntary guarding or rigidity. No pulsatile mass or fluid wave Auscultation: normoactive bowel sounds Palpation: soft Back/Spine no CVA tenderness Extremity normal to inspection Neuro oriented x3, CN's II-XII intact bilaterally and no sensory deficits noted Sensorium / Orientation: alert Motor Exam: strength 5/5 throughout Psych mental status grossly normal Skin no rashes or lesions noted General Skin Exam: Negative for jaundice MDM MDM MDM Narrative Medical decision making narrative: Patient presented to the ER mildly hypertensive but otherwise afebrile. Abdomen is soft and nonsurgical and with reported generalized abdominal discomfort differential diagnosis is for pancreatitis versus biliary colic versus UTI versus pyelonephritis versus constipation versus gastroenteritis versus ovarian cyst. Patient blood work was obtained which revealed no clinically significant findings but urine sample did show changes consistent with sterile pyuria. On repeat evaluation there was increased pain in the right lower quadrant and therefore sterile pyuria and increasing abdominal pain there is concern for acute appendicitis so CT scan was obtained. This revealed an involuting ovarian cyst at 1.4 cm but otherwise no acute findings. Therefore at this time with negative work-up and patient having improvement of symptoms there is no need for further evaluation in the ER and she is otherwise safe for discharge History & Record Review Discussion w/independent historian: Patient Lab Data Attestation: I reviewed the patient's lab results. Labs: Laboratory Results - last 24 hr 03/27/23 22:50 WBC 7.4 RBC 4.30 Hgb 13.8 Hct 40.8 MCV 94.9 MCH 32.1 H MCHC 33.8 RDW Std Deviation 39.7 RDW Coeff of Sweta 11.5 L Plt Count 231 MPV 11.0 Immature Gran % (Auto) 0.300 Neut % (Auto) 65.0 Lymph % (Auto) 25.0 Worth % (Auto) 8.5 Eos % (Auto) 0.8 Baso % (Auto) 0.4 Absolute Neuts (auto) 4.8 Absolute Lymphs (auto) 1.86 Nucleated RBC % 0 Sodium 139 Potassium 3.6 Chloride 106 Carbon Dioxide 30.0 Anion Gap 3 L BUN 13 Creatinine 0.68 Estim Creat Clear Calc 99.71 Est GFR (MDRD) Af Amer 126 Est GFR (MDRD) Non-Af 104 BUN/Creatinine Ratio 19.1 Glucose 99 Calcium 8.7 Total Bilirubin 0.30 Direct Bilirubin 0.14 AST 12 L ALT 25 Alkaline Phosphatase 44 L Total Protein 7.6 Albumin 4.0 Globulin 3.6 Lipase 46 Urine Color Yellow Urine Clarity Clear Urine pH 6.0 Ur Specific [place] 1.010 Urine Protein Negative Urine Glucose (UA) Normal Urine Ketones Negative Urine Occult Blood Negative Urine Nitrite Negative Urine Bilirubin Negative Urine Urobilinogen Normal Ur Leukocyte Esterase 100 H Urine RBC 0 SEEN Urine WBC 10-25 SEEN Ur Squamous Epith Cells 0 SEEN Urine Bacteria RARE Urine Mucus 0 SEEN Urine Test Negative Radiography Diagnostic Testing: Clinical Impression(s) from Imaging Studies Abdomen/Pelvis CT 03/28/23 23:44 IMPRESSION: 1. Normal appendix. 2. Fatty liver. 3. Small fat-containing paraumbilical hernia. No bowel involvement. 4. IUD in good position within the uterus. 5. Collapsing follicle measuring 1.4 cm right ovary. No follow-up imaging necessary. Electronically Signed: Paulo Washington MD at 1:01 EDT , Discharge Plan Triage Chief Complaint: Abd Pain ED Provider: Raoul Alonzo Dx/Rx/DC Orders Clinical Impression: Ovarian cyst Instructions: ED Ovarian Cyst Prescriptions: New oxycodone-acetaminophen [Percocet] 5-325 mg tablet 1 tab PO Q6H PRN (Reason: pain) 3 Days Qty: 12 0RF ondansetron 4 mg tablet,disintegrating 4 mg PO TID PRN (Reason: nausea and vomiting) Qty: 21 0RF No Action sulfamethoxazole-trimethoprim [Bactrim DS] 800-160 mg tablet 1 tab PO Q12H 7 Days Qty: 14 0RF phenazopyridine [Pyridium] 200 mg tablet 200 mg PO TID PRN (Reason: pain) Qty: 6 0RF Primary Care Provider: Arabella Watson Referrals: Arabella Watson, [employer]LECT[employer]K OPERATOR-C [Primary Care Provider] - Disposition Disposition: Home, Self Care Discharge Date/Time: 03/28/23 01:17
--- NOTE | 2023-03-28 23:44 | CT_ITS ---
EXAM: CT ABDOMEN AND PELVIS WITH INTRAVENOUS CONTRAST CLINICAL INDICATION: RLQ pain TECHNIQUE: Helically acquired images were obtained of the abdomen and pelvis with intravenous contrast. This CT exam was performed using one or more of the following dose reduction techniques: automated exposure control, adjustment of the mA and/or kV according to patient size, and/or use of iterative reconstruction technique. CONTRAST: 100 cc of Isovue-370 IV. RADIATION DOSE: CTDIvol = 14.39 mGy, DLP = 594.49 mGy-cm COMPARISON: No relevant prior studies available. FINDINGS: LOWER THORAX: Unremarkable. Lung bases are clear. No cardiomegaly. No significant pericardial effusion. ABDOMEN: LIVER: There is diffuse low-attenuation of the liver. GALLBLADDER AND BILE DUCTS: Unremarkable. No calcified gallstones. No gallbladder distention or wall edema. No intra- or extrahepatic biliary ductal dilation. PANCREAS: Unremarkable. No focal cystic or solid mass. SPLEEN: Unremarkable. Normal size without focal cystic or solid mass. ADRENALS: Unremarkable. No nodules. KIDNEYS AND URETERS: Unremarkable. Normal renal size and position. No hydronephrosis. STOMACH AND BOWEL: Unremarkable. No stomach or bowel distention. No focal inflammatory change. PELVIS: APPENDIX: Normal appendix. BLADDER: Unremarkable. REPRODUCTIVE: IUD in good position within the uterus. Collapsing follicle measuring 1.4 cm right ovary. ABDOMEN and PELVIS: INTRAPERITONEAL SPACE: Unremarkable. No ascites or other fluid collection. No free air. BONES/JOINTS: Unremarkable. No suspicious lytic or blastic abnormality. SOFT TISSUES: Small fat-containing paraumbilical hernia. VASCULATURE: Unremarkable. Abdominal aorta is non-dilated. LYMPH NODES: Unremarkable. No enlarged lymph nodes. CT/Abdomen/Pelvis W IV Cont ONLY IMPRESSION: 1. Normal appendix. 2. Fatty liver. 3. Small fat-containing paraumbilical hernia. No bowel involvement. 4. IUD in good position within the uterus. 5. Collapsing follicle measuring 1.4 cm right ovary. No follow-up imaging necessary. Electronically Signed: Paulo Washington MD at 1:01 EDT ,
== END 2023-03-28 01:17 | disposition home or self-care (01) ==
PROVIDERS: Emergency Provider Emergency Medicine; PCP Nurse Practitioner Family; Visit Provider Emergency Medicine
DX: N83.201 Unspecified ovarian cyst, right side (principal); F17.290 Nicotine dependence, other tobacco product, uncomplicated
CPT/HCPCS: 74177; 80048; 80076; 81001; 81025; 83690; 85025; 96361; 96374; 99284; J7030; Q9967; A4216; J2405

== ENCOUNTER 2023-08-17 07:01 | Emergency (ER) | payer MEDICAID, SELFPAY ==
[2023-08-17 07:02] VITALS: BP 135/86; PULSE 129; RESP 18; TEMP 36.9; O2SAT 100; BMI 25.6
--- NOTE | 2023-08-17 07:12 | CT_ITS ---
STUDY: CT ABDOMEN AND PELVIS WITHOUT CONTRAST REASON FOR EXAM: Female, 38 years old. Kidney Stone -- Last menses ended beginning of the month on . Hematuria and flank pain. RADIATION DOSAGE (If Supplied By Facility): CTDIvol = ( 6.43 ) mGy, DLP = ( 334.0 ) mGycm TECHNIQUE: Transaxial images were obtained from the dome of the diaphragm to the symphysis pubis without oral contrast, and without intravenous contrast. Sagittal and coronal images were reconstructed. Individualized dose optimization techniques were used for this CT. COMPARISON: Comparison is made with prior study dated March 28, 2023. FINDINGS: The visualized lung bases are unremarkable. The visualized portions of the heart are within normal limits. Normal liver. Normal gallbladder and extrahepatic biliary system. Normal spleen. Normal pancreas. Normal bilateral adrenal glands. Normal right kidney. Normal left kidney. Normal visualized stomach. Normal small intestine. Normal colon. The appendix is visualized and appears normal. Normal abdominal aorta. Normal inferior vena cava. Normal retroperitoneum. Normal urinary bladder. IUD is seen within the endometrium. Calcified phlebolith is seen in the pelvis. Follicles are seen in the left ovary. Minimal amount of free fluid is seen in the cul-de-sac. There is a small umbilical hernia containing fat. Normal osseous structures. CT/Abdomen/Pelvis without Cont IMPRESSION: Small follicles are seen in the left ovary. IUD is seen within the endometrium. No obstructive uropathy is seen at this time. Electronically Signed: Bong Hansen MD at 8:41 EST ,
[2023-08-17 07:22] LABS: Bacteria 0 SEEN /hpf (None Seen); Mucous, Urine 0 SEEN /hpf (<or=2+); Red Blood Cells-Urine 0 SEEN /hpf (0-5); Squamous Epithelial Cells - UA 0 SEEN /hpf (5-10); White Blood Cells 0 SEEN /hpf (0-5)
[2023-08-17] MEDS: Ondansetron 4 MG/2 ML Vial IV (07:28)
[2023-08-17] MEDS: Ketorolac 15 MG/ML Vial IV (07:28)
[2023-08-17] MEDS: 0.9% Normal Saline (1000mL) 1,000 ML 250 ML IV (07:32)
--- NOTE | 2023-08-17 07:38 | EX.ED.DYSGE1 ---
HPI History of Present Illness Chief Complaint: Abd Pain Detail of Chief Complaint: Acute left-sided abdominal pain/flank pain that started last evening. Informant: patient Onset/Context/Timing Onset: Yesterday Context: Sudden Onset Timing: Continuous and Waxes and wanes Quality: Crampy Location: Left side of abdomen and flank Current Severity: Mild Maximum Severity: Severe Worsened by: Nothing Relieved by: Nothing Associated Symptoms Associated Symptoms: Nausea and hematuria Narrative Narrative: Patient is a 38-year-old female with prior history of renal/ureteral lithiasis. Last episode that required trip to ER was 10 years ago. Patient denies fever, chills night sweats. Does endorse nausea without vomiting. Denies diarrhea. She does report report urgency and hematuria. Last normal menstrual period ended beginning this month. She is on control. She has been on control pills for 6 years. She has no signs or symptoms of . Patient denies headache, visual, ocular auditory symptoms. Patient [place] chest pain, shortness of breath or difficulty breathing. Patient denies intolerance to food. There is no history of pancreatitis. There is no history of alcohol consumption. Prior similar symptoms: Yes Recent Illness/Hospitalization: No [facility] Medical History Anxiety Kidney calculi Home Medications phenazopyridine 200 mg tablet (Pyridium) 200 mg PO TID PRN pain 6 doses #6 tabs 05/01/22 [Rx Last Taken Unknown] sulfamethoxazole 800 mg-trimethoprim 160 mg tablet (Bactrim DS) 1 tab PO Q12H 7 days #14 tabs 05/01/22 [Rx Last Taken Unknown] ondansetron 4 mg disintegrating tablet 4 mg PO TID PRN nausea and vomiting #21 tabs 03/28/23 [Rx Last Taken Unknown] oxycodone-acetaminophen 5 mg-325 mg tablet (Percocet) 1 tab PO Q6H PRN pain 3 days #12 tabs 03/28/23 [Rx Last Taken Unknown] Allergy/AdvReac Type Severity Reaction Status Date / Time Penicillins [PCN] Allergy Unknown Verified 08/17/23 07:01 Social History (Updated 08/17/23 @ 07:[address] Itz Garcia MD) household members: spouse Smoking Status: Current every day smoker tobacco type: e-cigarettes ROS ROS ED Constitutional Constitutional ED: Denies chills, fever(s), subjective or sweats Eyes Eyes: Denies blurry vision, change in vision or diplopia ENT ENT ED: Denies ear pain, rhinorrhea or sore throat Cardiovascular Cardiovascular: Denies chest pain or palpitations Respiratory/Chest Respiratory/Chest: Denies cough, dyspnea or dyspnea on exertion Gastrointestinal Gastrointestinal: Reports abdominal pain and nausea; Denies constipation, diarrhea, melena or vomiting Genitourinary Genitourinary ED: Denies dysuria, hematuria or urinary frequency Musculoskeletal Musculoskeletal: Denies arthralgias, back pain, myalgias or neck pain Integumentary Denies rash Neurologic Neurologic: Denies headache(s) or paresthesias Psychiatric Psychiatric: Denies anxiety, depression or suicidal ideation Endocrine Endocrinology: Denies cold intolerance or heat intolerance Hematologic/Lymphatic Hematologic/Lymphatic: Reports systems reviewed and no addt'l complaints, except as documented EXAM Physical Exam Const Vital Signs: 08/17/23 07:02 Temperature 98.4 F Temperature Source Oral Pulse Rate 129 H Respiratory Rate 18 Blood Pressure 135/86 H Blood Pressure Mean 102 Pulse Ox 100 Oxygen Delivery Method Room Air Positive well nourished and well developed Constitutional Narrative: Patient appears uncomfortable. General Appearance ED: well developed; Negative for cyanotic, diaphoretic, NAD or pallor HEENT Reports moist mucous membranes HEENT Narrative: Head is atraumatic and normocephalic. Eyes PERRL and EOMs intact bilaterally General Eye ED: Negative for pale conjunctiva or scleral icterus Neck no lymphadenopathy, supple and no JVD Resp normal respiratory effort and clear to auscultation bilaterally Cardio regular rhythm, S1 normal heart sound, S2 normal heart sound and no murmurs Rate: tachycardic GI normal to inspection, nondistended, normoactive bowel sounds, non-tender, non-distended and no masses; Negative for hepatosplenomegaly Back/Spine no CVA tenderness Cervical Spine: Negative for cervical spine tenderness Thoracic Spine / Upper Back: Negative for thoracic spinal tenderness Neuro oriented x3, CN's II-XII intact bilaterally and no sensory deficits noted Neuro Narrative: Gait observed and normal. Sensorium / Orientation: alert Motor Exam: strength 5/5 throughout Psych mental status grossly normal Skin no rashes or lesions noted, no wounds and skin turgor normal General Skin Exam: elasticity normal; Negative for jaundice or pallor MDM MDM MDM Narrative Medical decision making narrative: Differential diagnosis would include obstructing ureteral stone, infection, abdominal pain of unknown etiology, inflammatory process. With history of hematuria and prior history of stones suspect obstructing stone. UA was obtained to assess for infection. BMP to assess renal function electrolytes. CBC to assess white count differential. Patient was medicated with IV Toradol for pain and Zofran for her nausea. CT was ordered of the abdomen pelvis without contrast to evaluate for obstructing stone. Patient had several visits to the emergency room for chest pain of unknown etiology, ovarian cyst, abdominal pain of unknown etiology. Doubt this to be a variant/gynecologic in origin with hematuria. History & Record Review Additional record(s) reviewed:: Prior outpatient record and Prior ED visit Lab Data Attestation: I reviewed the patient's lab results. Lab results narrative: CBC is normal. Basic metabolic panel is unremarkable. Chloride slightly elevated 112. UA is remarkable for occult blood and leukoesterase on macro and 0 RBCs, WBCs and bacteria on micro. Labs: Laboratory Results - last 24 hr 08/17/23 08/17/23 07:18 07:33 WBC 6.3 RBC 4.65 Hgb 14.2 Hct 43.4 MCV 93.3 MCH 30.5 MCHC 32.7 RDW Std Deviation 41.8 RDW Coeff of Sweta 12.0 Plt Count 226 MPV 10.9 Immature Gran % (Auto) 0.600 Neut % (Auto) 80.2 H Lymph % (Auto) 11.5 L [place] % (Auto) 6.6 Eos % (Auto) 0.6 Baso % (Auto) 0.5 Absolute Neuts (auto) 5.1 Absolute Lymphs (auto) 0.73 L Nucleated RBC % 0 Sodium 143 Potassium 3.4 L Chloride 112 H Carbon Dioxide 26.0 Anion Gap 5 BUN 11 Creatinine 0.65 Estim Creat Clear Calc 113.14 Est GFR (MDRD) Af Amer 133 Est GFR (MDRD) Non-Af 110 BUN/Creatinine Ratio 17.0 Glucose 112 H Calcium 8.9 Urine Color Straw Urine Clarity Clear Urine pH 7.0 Ur Specific [place] 1.010 Urine Protein Negative Urine Glucose (UA) Normal Urine Ketones Negative Urine Occult Blood 250 H Urine Nitrite Negative Urine Bilirubin Negative Urine Urobilinogen Normal Ur Leukocyte Esterase 25 H Urine RBC 0 SEEN Urine WBC 0 SEEN Ur Squamous Epith Cells 0 SEEN Urine Bacteria 0 SEEN Urine Mucus 0 SEEN Radiography Diagnostic Testing: Clinical Impression(s) from Imaging Studies Abdomen/Pelvis CT 08/17/23 07:12 IMPRESSION: Small follicles are seen in the left ovary. IUD is seen within the endometrium. No obstructive uropathy is seen at this time. Electronically Signed: Bong Hansen MD at 8:41 EST , CT was reviewed. Read radiology report. No other abdomen maladies noted when I reviewed the chart/CAT scan Treatment and Re-Evaluation :: Patient was informed that the CAT scan reveals no abnormality other than ovarian cyst. She was told this is a benign process. She feels nothing has been resolved since we do not know the cause of her bleeding. I informed her that I can tell you processes that you do not have and that it is safe for you to go home. She was informed marked job as an emergency visit as determined there is any life-threatening problems or problems that require admission or emergent follow-up. At this point she will need follow-up and she was referred to Dr. Encinas for outpatient workup Discharge Plan Triage Chief Complaint: Abd Pain ED Provider: Itz Garcia Dx/Rx/DC Orders Clinical Impression: Left sided abdominal pain of unknown cause, Sinus tachycardia seen on environmental monitoring specialist, Cyst of left ovary Instructions: ED Abdominal Pain Unkn Cause Fem, ED Ovarian Cyst Prescriptions: No Action sulfamethoxazole-trimethoprim [Bactrim DS] 800-160 mg tablet 1 tab PO Q12H 7 Days Qty: 14 0RF phenazopyridine [Pyridium] 200 mg tablet 200 mg PO TID PRN (Reason: pain) Qty: 6 0RF oxycodone-acetaminophen [Percocet] 5-325 mg tablet 1 tab PO Q6H PRN (Reason: pain) 3 Days Qty: 12 0RF ondansetron 4 mg tablet,disintegrating 4 mg PO TID PRN (Reason: nausea and vomiting) Qty: 21 0RF Primary Care Provider: Arabella Watson Referrals: Kerry Encinas MD [Med Staff - Active Staff] - 5-7 Days Arabella Watson NP-C [Primary Care Provider] - Activity Restrictions/Additional Instructions: 1. You can take either 4 ibuprofen tablets every 8 hours for the next 3 to 5 days or 2 Aleve tablets every 12 hours for the next 3 to 5 days for your pain. Disposition Disposition: Home, Self Care
--- OUTSIDE RECORDS SUMMARY | 2023-08-17 07:40 | XMS RPT_ITS | CCD ---
Author Name Unknown Address [address] [place] [address] Organization [facility] Care Team Providers Care Pepper Picker Name Role Phone Unavailable Primary Care Provider Unavailshawn Watson BARREL STAVE INSPECTOR.Arabella TODD Primary Care Provider ARABELLA WATSON Referring Unavailable ARABELLA WATSON Primary Care Unavailable ARABELLA WATOSN Attending Unavailable ARABELLA WATSON Primary Care Unavailable SANDY KEENAN Attending Unavail MARILEE Kwong Attending Unavailable Allergies Allergy Classification Reported Allergen(s) Allergy Type Date of Onset Reaction(s) Facility (5 sources) Penicillins; Translations: [PENICILLINS] Drug Allergy 10-23-2017 Other: See Comments [facility] Medications Current Medications Medication Drug Class(es) Dates Sig (Normalized) Sig (Original) fluconazole 150 mg oral tablet (1 source) Azole Antifungal Start: 12-20-2022 End: 12-20-2022 fluconazole (DIFLUCAN) 150 mg tablet Take 1 tablet by mouth one time only for 1 dose. Take one tablet now and repeat dose in 72 hours. 2 tablet 0 12/20/2022 12/20/2022 Active Completed/Discontinued Medications Medication Drug Class(es) Dates Sig (Normalized) Sig (Original) copper 313 mg drug implant (4 sources) Copper-containing Intrauterine Device copper (PARAGARD) 38 0 square mm intrauterine device 1 Intra Uterine Device by INTRAUTERINE route. 0 Active Problems Active Problems Problem Classification Problem Date Documented Date Episodic/Chronic Immunizations and screening for infectious disease (3 sources) Patient encounter status; Translations: [Encounter for screening for human papillomavirus (HPV)] Onset: 08-15-2022 Episodic Inflammatory diseases of female pelvic organs (2 sources) Acute vaginitis; Translations: [Acute vaginitis] Onset: 12-20-2022 Episodic Other female genital disorders (2 sources) Vaginal discharge; Translations: [Other specified noninflammatory disorders of vagina] Episodic Other female genital disorders (1 source) Other specified noninflammatory disorders of vagina; Translations: [Vaginal discharge] Onset: 12-20-2022 Episodic Other screening for suspected conditions (not mental disorders or infectious disease) (4 sources) Cancer cervix screening status; Translations: [Encounter for screening for malignant neoplasm of cervix] Onset: 08-15-2022 Episodic Past or Other Problems Problem Classification Problem Date Documented Da te Episodic/Chronic Genitourinary symptoms and ill-defined conditions (2 sources) Dysuria; Translations: [Dysuria] Onset: 08-15-2022 Episodic Results Test Name Value Interpretation Reference Range Facil ity Vital Signs Date Time Vital Sign Value Performing Clinician Faci lity 12-20-2022 10:04-0400 Body weight 63.05 kg Sandy Jovel MD Work Phone: [facility] 12-20-2022 10:04-0400 Diastolic blood pressure 80 mm[Hg] Sandy Jovel MD Work Phone: [facility] 12-20-2022 10:04-0400 Systolic blood pressure 114 mm[Hg] Sandy Jovel MD Work Phone: [facility] 08-15-2022 11:01-0500 Body height 162.6 cm Marilee Dash MD Work Phone: [facility] 08-15-2022 11:01-0500 Body weight 63.41 kg Marilee Dash MD Work Phone: [facility] 08-15-2022 11:01-0500 Diastolic blood pressure 76 mm[Hg] Marilee Dash MD Work Phone: [facility] 08-15-2022 11:01-0500 Systolic blood pressure 120 mm[Hg] Marilee Dash MD Work Phone: [facility] Encounters Encounter Date Encounter Type Care Provider Facility Start: 01-26-2023 Telephone encounter Arabella mullen APRN.CNP Work Phone: [facility] Procedures Date Procedure Procedure Detail Performing Clinician Start: 12-20-2022 BACTERIAL VAGINOSIS NAAT Sandy Jovel MD Work Phone: Start: 12-20-2022 Iadna trichomonas vaginalis amplified probe tech Sandy Jovel MD Work Phone: Start: 08-15-2022 Urnls dip stick/tabl et rgnt auto w/o microscopy Marilee Dash MD Work Phone: Plan of Treatment Date Care Activity Detail Author Start: 01-24-2033 Urine microalbumin profile DTA P,TDAP,TD (2 - Td or Tdap) [facility] Start: 08-15-2027 HPV TESTING HPV TESTING [facility] Start: 08-15-2027 PAP TESTING PAP TESTING [facility] Start: 01-25-2024 COVID-19 VACCINE (#1) COVID-19 VACCI NE (#1) [facility] Immunizations Immunization Date Immunization Notes Care Provider Fa cility 01-24-2023 tetanus toxoid, redu philipp diphtheria toxoid, and acellular pertussis vaccine, adsorbed Arabella Watson BARREL STAVE INSPECTOR.CUSTOMER EXPERIENCE ANALYST Work Phone: [facility] Payers Date Payer Category Payer Medicaid [facility] [id number] 2022-Present [phone] [address] [place] [address] Medicaid [id number] 2022 Unknown [id number] 2020 Unknown [employer] PPO OOS [id number] 2020-Present [phone] [address] [place] [address] PPO [id number] 2020 Unknown [id number] Social History Date Type Detail Facility Start: 08-15-2022 End: 01-24-2023 Tobacco smoking status NHIS Ex-smoker [facility] History of tobacco use Current smoker [facility] History of tobacco use Cigarette Smoker [facility] Start: 08-15-2022 End: 01-24-2023 Tobacco use and exposure Smokeless tobacco non-user [facility] Start: 08-15-2022 End: 01-24-2023 Alcohol intake Current drinker of alcohol (finding) [facility] Start: 08-15-2022 Alcohol Comment [facility] Start: 1985 Sex Assigned At Not on file [facility] Start: 12-30-2022 End: 01-24-2023 History of Social function [facility] Work Phone: Start: 12-30-2022 End: 01-24-2023 Tobacco use panel [facility] Work Phone: Adult Depression Screening Assessment 0 [facility] Work Phone: Note 01-26-2023 Telephone Encounter - Lupe Galdamez Cma - 01/26/2023 10:50 AM EDTTelephone Encounter - Arabella Watson APRN.CNP - 01/26/2023 10:26 AM EDT Note Date & Type Note Facility 01-26-2023 Miscellaneous Notes Formattin g of this note might be different from the original. Patient notified and verbalized understanding Lupe Galdamez Cma Please let patient know her labs are normal. documented in this encounter [facility] Progress note 01-24-2023 Note Date & Type Note Facility 01-24-2023 Note HNO ID: [id number] Author: Arabella Watson APRN.CNP Service: ? Author Type: Nurse Practitioner Type: Progress Notes Filed: 01/24/2023 11:41 AM Note Text: Chief Complaint No chief complaint on file. GOPAL Martínez is a 37 year old female who presents here today for Above Complaints.. Patient presents to [facility] care. Patient reports she has concerns regarding lower abdominal pain x1 week that is intermittent. Patient reports a longstanding issue with her bowels and going 3-4 days without a bowel movement. Patient reports anxiety but has been on meds in the past and does not like the way she feels on them. Patient does follow with therapists. Past medical history, appointments, medications, allergies reviewed. Previous Medical History PAST MEDICAL HISTORY Diagnosis Date History of HPV infection Previous Surgical History PAST SURGICAL HISTORY Procedure Laterality Date CERVIX UTERI CONIZA LP ELCTRO EXCI no records, [place] ~2019 [place], pt reports significant anxiety with procedure so unable to complete in office Family History FAMILY HISTORY Problem Relation Age of Onset Lung Cancer Mother Heart Attack Mother No Known Problems Father No Known Problems Brother Lung Cancer Maternal Grandmother No Known Problems Maternal Grandfather Lung Cancer Paternal Grandmother No Known Problems Paternal Grandfather Patient Allergies ALLERGIES Allergen Reactions Penicillins Other: See Comments Uncertain. Allergy as child Current Medications Current Outpatient Medications on File Prior to Visit Medication Sig copper (PARAGARD) 380 square mm intrauterine device 1 Intra Uterine Device by INTRAUTERINE route. No current facility-administered medications on file prior to visit. Social History Social History Tobacco Use Smoking status: Former Types: Cigarettes Smokeless tobacco: Never Vaping Use Vaping Use: current everyday user Substances: Nicotine Devices: Pre-filled or refillable cartridge Substance Use Topics Alcohol use: Yes Comment: occasional Drug use: Never Review of Symptoms REVIEW OF SYSTEMS GENERAL: No weight loss, malaise or fevers HEENT: Negative for frequent or significant headaches, No changes in hearing or vision, no nose bleeds or other nasal problems NECK: Negative for lumps, goiter, pain and significant neck swelling RESPIRATORY: Negative for cough, hemoptysis, wheezing, COPD, dyspnea or shortness of breath CARDIOVASCULAR: Negative for chest pain, leg swelling, hypertension, CHF or palpitations GI: No nausea, vomiting, or diarrhea : No history of dysuria, frequency or incontinence TUGBOAT ENGINEER: Negative for abnormal vaginal bleeding, abnormal vaginal discharge MUSCULOSKELETAL: back pain SKIN: Negative for lesions, rash, and itching PSYCH: Negative for sleep disturbance, mood disorder and recent psychosocial stressors HEMATOLOGY/LYMPHOLOGY: Negative for prolonged bleeding, bruising easily or swollen nodes ENDOCRINE: Negative for cold or heat intolerance, polyuria, polydipsia and goiter NEURO: No history of headaches, syncope, paralysis, seizures or tremors EXAM: BP 110/76 Pulse 108 Resp 14 Ht 162.6 cm (5' 4 ) Wt 64 kg (141 lb) LMP 11/24/2022 BMI 24.20 kg/m? General Appearance: Well appearing, alert, in no acute distress, well-hydrated, well nourished.. Skin: Skin color, texture, turgor normal, no suspicious rashes or lesions. Neck: Supple, no adenopathy; thyroid symmetric, normal size, no bruits. Lungs: Lungs clear to auscultation. No wheezing, rhonchi, rales.. Heart: RRR without murmur, gallop, or rubs. No ectopy. Abdomen: Normal abdominal exam, Abdomen soft, non-tender. Bowel sounds normal. No masses, organomegaly Musculoskeletal: No joint swelling, deformity, or tenderness. Peripheral Pulses: Normal. Neurologic: Gait normal. Reflexes normal and symmetric. Sensation grossly intact.. Health Maintenance List HEPATITIS B(1 of 3 - 3-dose series) Never done COVID-19 VACCINE(1) Never done HEPATITIS C SCREENING Never done HIV SCREENING Never done DTAP,TDAP,TD(1 - Tdap) Never done DEPRESSION ASSESSMENT Never done INFLUENZA(1) due on 03/03/2023 PAP TESTING due on 08/15/2027 HPV TESTING due on 08/15/2027 HPV VACCINE Aged Out ASSESSMENT/PLAN: 1. Wellness examination - ICD9: V70.0, ICD10: Z00.00 (primary diagnosis) - Counseled on healthy diet and regular exercise - Calcium intake with supplements or by diet of 1000 mg/day for under 50, 8669-9826 mg/day for 50+ - Discussed need and benefit for weight loss. BMI 24.20 kg/(m2) - Smoking cessation encouraged; discussed risks to health and quitting strategies. Patient is not ready to quit - Counseled patient on limiting alcohol intake to 1 drink per day - Depression screening tool completed and reviewed with patient. Based on score and interview, patient is not at risk for depression and recommended no further in (more content not included)... [facility] Progress note 12-20-2022 Note Date & Type Note Facility 12-20-2022 Note HNO ID: [id number] Author: Sandy Jovel MD Service: ? Author Type: Physician Type: Progress Notes Filed: 12/20/2022 1:03 PM Note Text: Automotive Leasing Sales Representative offered: Patient declines. Edson Martínez is a 37 year old female who presents for concerns regarding vaginal irritation and itching. Pt reports was in [facility] during the weekend and wonders if she has infection. Pt reports has trich recently. No new sexual partners. Pt reports has some pelvic discomfort, no fevers, no dysuria, no odor or discharge. She reports has changed soaps recently. Is using paragard for BC. No other concerns today. Rates pelvic discomfort 3-4. 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 PAST MEDICAL HISTORY Diagnosis Date History of HPV infection PAST SURGICAL HISTORY Procedure Laterality Date CERVIX UTERI CONIZA LP ELCTRO EXCI no records, [place] ~2019 [place], pt reports significant anxiety with procedure so unable to complete in office FAMILY HISTORY Problem Relation Age of Onset Lung Cancer Mother Heart Attack Mother No Known Problems Father No Known Problems Brother Lung Cancer Maternal Grandmother No Known Problems Maternal Grandfather Lung Cancer Paternal Grandmother No Known Problems Paternal Grandfather Social History Tobacco Use Smoking status: Former Types: Cigarettes Smokeless tobacco: Never Vaping Use Vaping Use: current everyday user Substances: Nicotine Devices: Pre-filled or refillable cartridge Substance Use Topics Alcohol use: Yes Comment: occasional Drug use: Never Current Outpatient Medications Medication Sig copper (PARAGARD) 380 square mm intrauterine device 1 Intra Uterine Device by INTRAUTERINE route. No current facility-administered medications for this visit. Allergies As of Date: 12/20/2022 Allergen Noted Reaction PENICILLINS 10/23/2017 Other: See Comments Fully Assessed 03/25/2021 REVIEW OF SYSTEMS Abdomen: no N/V, no changes in BMs Bladder: No dysuria .. Expanded ROS: no fever Allergies and current medication updated:Yes EXAM: BP 114/80 Wt 139 lb (63.1kg) LMP 11/24/2022 GENERAL: pleasant, female in no apparent distress HEENT: Normocephalic, atraumatic, mucus membranes moist, and no lesions NECK: Supple, full range of motion, DERMATOLOGY: Normal and without lesions PELVIC: external genitalia normal, normal Bartholin's glands, urethra, Cowen's glands, no vulvar lesions, no cervical lesions, normal appearing perineal body and perianal region, Thick white/yellow discharge c/w yeast NEURO: alert and oriented x3,exam grossly non-focal EXTREMITIES: normal ASSESSMENT AND PLAN: Encounter Diagnosis ICD-10-CM 1. Vaginal discharge N89.8 BERTO / TRICHOMONAS AMPLIFICATION BACTERIAL VAGINOSIS AMPLIFICATION GC/CHLAMYDIA DNA DET 2. Acute vaginitis N76.0 3. Diflucan ordered. 4. 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 Edson Martínez is a 37 year old female who presents for concerns regarding vaginal irritation and itching. Pt reports was in [facility] during the weekend and wonders if she has infection. Pt reports has trich recently. No new sexual partners. Pt reports has some pelvic discomfort, no fevers, no dysuria, no odor or discharge. She reports has changed soaps recently. Is using paragard for BC. No other concerns today. Rates pelvic discomfort 3-4/10. 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 PAST MEDICAL HISTORY Diagnosis Date History of HPV infection PAST SURGICAL HISTORY Procedure Laterality Date CERVIX UTERI CONIZA LP ELCTRO EXCI no records, [place]2019 [place], pt reports significant anxiety with procedure so unable to complete in office FAMILY HISTORY Problem Relation Age of Onset Lung Cancer Mother Heart Attack Mother No Known Problems Father No Known Problems Brother Lung Cancer Maternal Grandmother No Known Problems Maternal Grandfather Lung Cancer Paternal Grandmother No Known Problems Paternal Grandfather Social History Tobacco Use Smoking status: Former Types: Cigarettes Smokeless tobacco: Never Vaping Use Vaping Use: current everyday user Substances: Nicotine Devices: Pre-filled or refillable cartridge Substance Use Topics Alcohol use: Yes Comment: occasional Drug use: Never Current Outpatient Medications Medication Sig copper (PARAGARD) 380 square mm intrauterine device 1 Intra Uterine Device by INTRAUTERINE route. No current facility-administered medications for this visit. Allergies As of Date: 12/20/2022 Allergen Noted Reaction PENICILLINS 10/23/2017 Other: See Comments Fully Assessed 03/25/2021 REVIEW OF SYSTEMS Abdomen: no N/V, no changes in BMs Bladder: No dysuria .. Expanded ROS: no fever Allergies and current medication updated:Yes EXAM: BP 114/80 Wt 139 lb (63.1kg) LMP 11/24/2022 GENERAL: pleasant, female in no apparent distress HEENT: Normocephalic, atraumatic, mucus membranes moist, and no lesions NECK: Supple, full range of motion, DERMATOLOGY: Normal and without lesions PELVIC: external genitalia normal, normal Bartholin's glands, urethra, Cowen's glands, no vulvar lesions, no cervical lesions, normal appearing perineal body and perianal region, Thick white/yellow discharge c/w yeast NEURO: alert and oriented x3,exam grossly non-focal EXTREMITIES: normal ASSESSMENT AND PLAN: Encounter Diagnosis ICD-10-CM 1. Vaginal discharge N89.8 BERTO / TRICHOMONAS AMPLIFICATION BACTERIAL VAGINOSIS AMPLIFICATION GC/CHLAMYDIA DNA DET 2. Acute vaginitis N76.0 3. Diflucan ordered. 4. Vaginal and vulvar hygiene reviewed Medical Decision Making: Problems: Low: Acute, uncomplicated illness or injury Data: Unique test(s) ordered: 3+ Risk: Moderate: Drug management Medical Decision Making Level: 4 - Moderate Sandy Holloway MD documented in this encounter [facility] Note 08-29-2022 Telephone Encounter - Ban Blake APRN.CNP - 08/29/2022 7:24 AM ESTTelephone Encounter - Yolis Ramirez RN - 08/26/2022 4:47 PM ESTTelephone Encounter - Lily Perez - 08/23/2022 9:22 AM EST Note Date & Type Note Facility 08-29-2022 Miscellaneous Notes Formattin g of this note might be different from the original. Order sent. Ban Blake APRN.CNP Patient would like RX sent to [facility] in [place] Message left asking pt to call the office for below message. Lilly Kulkarni LPN The other medication acyclovir appears that it will cost about the same based on her insurance. I can send the prescription to [facility] and she can use a good Rx coupon and get the medication for less than $35. Ban Blake APRN.CNP Patient returned call. States that the Valtrex is over $200 with her insurance. Did not pickling grader the medicine. Asking for a more affordable medication. OK to leave a detailed message on voicemail. Yolis Ramirez RN Left message to call office Attempted to contact pt via phone and voicemail is still full and unable to leave message. Pt is not currently active on mychart. Lilly Kulkarni LPN Attempted to contact patient, no answer and unable to leave a message as voicemail box is full. Will attempt to contact patient again later. Brianna Carranza RN Patient returned call and received the previous message. She has additional medical questions that she would like to review with a clinical caregiver. Please contact the patient to advise on plan of care. Attempted to notify patient. No answer and unable to leave a message. Call sounded like it was picked up and then hung up. Yolis Ramirez RN SW pt. 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 She should start a daily antiviral due to able to tell when she has a breakout. I have sent a daily medication to [facility] pharmacy for her. Ban Blake APRN.CNP documented in this encounter [facility] Progress note 08-15-2022 Note Date & Type Note Facility 08-15-2022 Note HNO ID: [id number] Author: Marilee Dash MD Service: ? Author Type: Physician Type: Progress Notes Filed: 08/15/2022 3:46 PM Note Text: Automotive Leasing Sales Representative offered: Patient declines. Edson is a 37 year old who presents for an annual gynecologic exam with complaints, dysuria . Having weeks of dysuria, vaginal discharge, vaginal burning and discomfort. Menses: Regular, monthly menstrual cycles. Contraception: IUD Paragard - placed 4 years ago HPV vaccine: No Last Pap: No record HPV: No record History of abnormal pap: prior excision about 4 years ago per patient with h/o HPV Last mammogram: never Sexually active: Yes History of STDS: None and HPV Time with current partner: 10 years male partner OB History No obstetric history on file. 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 PAST MEDICAL HISTORY Diagnosis Date History of HPV infection PAST SURGICAL HISTORY Procedure Laterality Date CERVIX UTERI CONIZA LP ELCTRO EXCI FAMILY HISTORY Problem Relation Age of Onset Lung Cancer Mother Heart Attack Mother No Known Problems Father No Known Problems Brother Lung Cancer Maternal Grandmother No Known Problems Maternal Grandfather Lung Cancer Paternal Grandmother No Known Problems Paternal Grandfather SOCIAL HISTORY Social History Tobacco Use Smoking status: Former Types: Cigarettes Smokeless tobacco: Never Vaping Use Vaping Use: current everyday user Substances: Nicotine Devices: Pre-filled or refillable cartridge Substance Use Topics Alcohol use: Yes Comment: occasional Drug use: Never REVIEW OF SYSTEMS Abdomen: No abdominal pain, nausea, vomiting, diarrhea, or constipation. No bloating, early satiety, indigestion, or increased flatulence. Bladder: No dysuria, gross hematuria, urinary frequency, urinary urgency, or incontinence. Breast: No breast lumps, nipple d/c, overlying skin changes, redness or skin retraction. Allergies and current medication updated:Yes EXAM: BP 120/76 Ht 5' 4 (1.63m) Wt 139 lb 12.8 oz (63.4kg) LMP 07/19/2022 BMI 23.98 kg/(m2). GENERAL: pleasant, female in no apparent distress HEENT: Normocephalic, atraumatic, mucus membranes moist, and no lesions NECK: full range of motion DERMATOLOGY: Normal, without lesions, non-icteric, and non-hirsute BREAST: soft, non-tender, symmetric, no dominant mass, normal nipple-areolar complex, no lymphadenopathy, and no nipple discharge CHEST: Normal inspiratory effort ABDOMEN: soft, non-tender, and no masses PELVIC: external genitalia normal, normal Bartholin's glands, urethra, Cowen's glands, no vulvar lesions, no cervical lesions, good vaginal support, physiologic discharge present, normal appearing perineal body and perianal region BIMANUAL: uterus normal size, shape and consistency, no adnexal masses, and non-tender RECTOVAGINAL: deferred. NEURO: exam grossly non-focal EXTREMITIES: normal ASSESSMENT/PLAN: 1) Health maintenance: Pap done with HPV. Nutrition, exercise and routine health maintenance exams reviewed. Screen for UTI and vaginal infection. 2) Contraception: IUD. Contraceptive options reviewed and information provided. 3) STD screening: Accepted STD check for Gonorrhea and Chlamydia. 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 Having weeks of dysuria, vaginal discharge, vaginal burning and discomfort. Menses: Regular, monthly menstrual cycles. Contraception: IUD Paragard - placed 4 years ago HPV vaccine: No Last Pap: No record HPV: No record History of abnormal pap: prior excision about 4 years ago per patient with h/o HPV Last mammogram: never Sexually active: Yes History of STDS: None and HPV Time with current partner: 10 years male partner OB History No obstetric history on file. 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 PAST MEDICAL HISTORY Diagnosis Date History of HPV infection PAST SURGICAL HISTORY Procedure Laterality Date CERVIX UTERI CONIZA LP ELCTRO EXCI FAMILY HISTORY Problem Relation Age of Onset Lung Cancer Mother Heart Attack Mother No Known Problems Father No Known Problems Brother Lung Cancer Maternal Grandmother No Known Problems Maternal Grandfather Lung Cancer Paternal Grandmother No Known Problems Paternal Grandfather SOCIAL HISTORY Social History Tobacco Use Smoking status: Former Types: Cigarettes Smokeless tobacco: Never Vaping Use Vaping Use: current everyday user Substances: Nicotine Devices: Pre-filled or refillable cartridge Substance Use Topics Alcohol use: Yes Comment: occasional Drug use: Never REVIEW OF SYSTEMS Abdomen: No abdominal pain, nausea, vomiting, diarrhea, or constipation. No bloating, early satiety, indigestion, or increased flatulence. Bladder: No dysuria, gross hematuria, urinary frequency, urinary urgency, or incontinence. Breast: No breast lumps, nipple d/c, overlying skin changes, redness or skin retraction. Allergies and current medication updated:Yes EXAM: BP 120/76 Ht 5' 4 (1.63m) Wt 139 lb 12.8 oz (63.4kg) LMP 07/19/2022 BMI 23.98 kg/(m^2). GENERAL: pleasant, female in no apparent distress HEENT: Normocephalic, atraumatic, mucus membranes moist, and no lesions NECK: full range of motion DERMATOLOGY: Normal, without lesions, non-icteric, and non-hirsute BREAST: soft, non-tender, symmetric, no dominant mass, normal nipple-areolar complex, no lymphadenopathy, and no nipple discharge CHEST: Normal inspiratory effort ABDOMEN: soft, non-tender, and no masses PELVIC: external genitalia normal, normal Bartholin's glands, urethra, Cowen's glands, no vulvar lesions, no cervical lesions, good vaginal support, physiologic discharge present, normal appearing perineal body and perianal region BIMANUAL: uterus normal size, shape and consistency, no adnexal masses, and non-tender RECTOVAGINAL: deferred. NEURO: exam grossly non-focal EXTREMITIES: normal ASSESSMENT/PLAN: 1) Health maintenance: Pap done with HPV. Nutrition, exercise and routine health maintenance exams reviewed. Screen for UTI and vaginal infection. 2) Contraception: IUD. Contraceptive options reviewed and information provided. 3) STD screening: Accepted STD check for Gonorrhea and Chlamydia. 4) Follow up one year or sooner as needed Marilee Dash DO documented in this encounter [facility] Evaluation note Note Date & Type Note Facility documented in this encounter [facility] Evaluation note Note Date & Type Note Facility documented in this encounter [facility] Summary Purpose Family History No Family History Records Found Advance Directives No Advanced Directives Records Found Additional Source Comments Source Comments (unrecognize d section and content) In the event this informatio n is protected by the Federal Confidentiality of Alcohol and Drug Abuse Patient Records regulations: The Federal rules restrict any use of the information to criminally investigate or prosecute any alcohol or drug abuse patient.[facility] event this information is protected by the Federal Confidentiality of Alcohol and Drug Abuse Patient Records regulations: The Federal rules restrict any use of the information to criminally investigate or prosecute any alcohol or drug abuse patient.[facility] event this information is protected by the Federal Confidentiality of Alcohol and Drug Abuse Patient Records regulations: The Federal rules restrict any use of the information to criminally investigate or prosecute any alcohol or drug abuse patient.[facility] the event this information is protected by the Federal Confidentiality of Alcohol and Drug Abuse Patient Records regulations: The Federal rules restrict any use of the information to criminally investigate or prosecute any alcohol or drug abuse patient.[facility] Reason for Visit (unrecogniz ed section and content) Reason Comments Results Patient Question Reason Comments Vaginal Problem Reason Comments Results Care Teams (unrecognized sec tion and content) INFORMATION SOURCE (unrecogn ized section and content) FOR RECORDS PERTAINING TO PATIENTS WHO ARE OR HAVE BEEN ENROLLED IN A CHEMICAL DEPENDENCY/SUBSTANCEABUSE PROGRAM, SOME INFORMATION MAY BE OMITTED. This clinical summary was aggregated from multiple sources. Caution should be exercised in using it in the provision of clinical care. This summary normalizes information from multiple sources, and as a consequence, information in this document may materially change the coding, format and clinical context of patient data. In addition, data may be omitted in some cases. CLINICAL DECISIONS SHOULD BE BASED ON THE PRIMARY CLINICAL RECORDS. [facility]. provides no warranty or guarantee of the accuracy or completeness of information in this document.
[2023-08-17 07:46] LABS: Color, Urine Straw (Yellow); Glucose, Dipstick Normal (Normal); Ketone-Dipstick Negative (Negative); Leukocyte Esterase-Dipstick 25 /ul (Negative); Nitrite-Dipstick Negative (Negative); Occult Blood-Urine 250 /ul (Negative); Protein-Dipstick Negative (Negative); Urine Bilirubin Dipstick Negative (Negative); Urine Clarity Clear (Clear); Urine Urobilinogen Normal (Normal)
[2023-08-17 07:49] LABS: Absolute Lymphocyte Count 0.73 X10^3/uL (0.83-4.51); Absolute Neutrophil Count 5.1 X10^3/uL (2.0-7.7); Basophil# 0.03 X10^3/uL; Basophil% 0.5 % (0-1); Eosinophil# 0.04 X10^3/uL; Eosinophils% 0.6 % (0-5); Hematocrit 43.4 % (37-47); Hemoglobin 14.2 g/dL (12.0-15.0); Lymphocyte # 0.73 X10^3/ul (0.83-4.51); Lymphocyte % 11.5 % (19-41); Mean Corp Hgb Conc 32.7 g/dL (32-36); Mean Corpuscular Hgb 30.5 pg (27.0-32.0); Mean Corpuscular Volume 93.3 fL (81-99); Mean Platelet Vol. 10.9 fl (6.2-12.0); Monocyte# 0.42 X10^3/uL; Monocyte% 6.6 % (0-10); NRBC Flagged by Analyzer 0 % (0-5); Neutrophil # 5.07 X10^3/uL (2.7-7.7); Neutrophil % 80.2 % (47-70); Platelet Count 226 K/mm3 (150-450); RBC Distribution Width SD 41.8 fl (35.1-43.9); Red Blood Count 4.65 M/mm3 (4.2-5.4); White Blood Count 6.3 K/mm3 (4.4-11.0)
[2023-08-17 08:04] LABS: Anion Gap 5 (5-15); BUN 11 mg/dL (7-18); Calcium,Total 8.9 mg/dL (8.5-10.1); Chloride 112 mmol/L (98-107); Creatinine, Serum 0.65 mg/dL (0.55-1.02); EST Glomerular Filtration Rate 110 mL/min (>60); Est Glom Filt Rate - Afr Amer 133 mL/min (>60); Estimated Creatinine Clearance 113.14 ml/min; Glucose 112 mg/dL (74-106); Potassium 3.4 mmol/L (3.5-5.1); Sodium Level 143 mmol/L (136-145)
[2023-08-17 09:01] VITALS: BP 126/76; BP 134/16; PULSE 64; PULSE 99; RESP 16; TEMP 36.4; TEMP 36.6; O2SAT 98; O2SAT 99
== END 2023-08-17 09:29 | disposition home or self-care (01) ==
PROVIDERS: Emergency Provider Emergency Medicine; PCP Nurse Practitioner Family; Visit Provider Emergency Medicine
DX: R10.9 Unspecified abdominal pain (principal); R31.9 Hematuria, unspecified; F17.210 Nicotine dependence, cigarettes, uncomplicated; R11.0 Nausea; Z87.442 Personal history of urinary calculi; F41.9 Anxiety disorder, unspecified; R00.0 Tachycardia, unspecified; N83.292 Other ovarian cyst, left side
CPT/HCPCS: 74176; 80048; 81001; 85025; 96361; 96374; 96375; 99283; J7030; J2405